=== PATIENT | female | born 1990 | race Caucasian/White ===

== ENCOUNTER 2016-09-09 17:30 | Outpatient (CLI) | payer MEDICAID, SELFPAY ==
[2016-09-09 18:14] LABS: Bacteria 0 SEEN /hpf (None Seen); Mucous, Urine 0 SEEN /hpf (<or=2+); Red Blood Cells-Urine 0 SEEN /hpf (0-5); White Blood Cells 0 SEEN /hpf (0-5)
[2016-09-09 18:21] VITALS: BMI 31.4
[2016-09-09 18:27] LABS: Color, Urine Yellow (Yellow); Glucose, Dipstick Normal (Normal); Ketone-Dipstick Negative (Negative); Leukocyte Esterase-Dipstick Negative /ul (Negative); Nitrite-Dipstick Negative (Negative); Occult Blood-Urine Negative /ul (Negative); Protein-Dipstick Negative (Negative); Specific Gravity, Urine 1.015 (1.002-1.030); Urine Bilirubin Dipstick Negative (Negative); Urine Clarity Sl. Cloudy (Clear); Urine Urobilinogen Normal (Normal)
[2016-09-09 18:36] LABS: Amorphous Sediment 2+ PHOS; Squamous Epithelial Cells - UA 0-5 SEEN /hpf (5-10)
[2016-09-09 18:41] LABS: Amphetamine Urine VISTA NEGATIVE (<1000 ng/mL); Barbiturate Urine VISTA NEGATIVE (< 200 ng/mL); Benzodiazepine Urine VISTA NEGATIVE (< 200 ng/mL); Cocaine Urine VISTA NEGATIVE (< 300 ng/mL); Ecstacy Urine VISTA NEGATIVE (< 500 ng/mL); Methadone Urine VISTA NEGATIVE (< 300 ng/mL); PCP Urine VISTA NEGATIVE (< 25 ng/mL); THC Urine VISTA POSITIVE (< 50 ng/mL); Vista UDS pH Range 6
[2016-09-09] MEDS: oxyCODONE 5 MG Tablet PO (20:14)
--- NOTE | 2016-09-09 22:41 | OB.TRI.NOTE ---
History of Present Illness - History of Present Illness Reason For Visit: R/O KIDNEY STONE Gestational age: 23 History of Present Illness: 26 YOF presents c/o 2 days of left flank pain. Has had for months, including before she was . Has h/o kidney stones in her kidneys. Patient states she has pain at urethra and suprapubic area. Drinking fluids. Passed small blood clot either vaginally or urethral area at home. No ctxs. Good FM. No fevers or chills. Was in ED yesterday and given IVF. Thinks she passed a small piece of a stone. Has a f/u appt w/ urology this week for this. - Medications Home Medications: Home Medications Medication Instructions Recorded HydrOXYzine DRAKE [Vistaril] 25 mg PO TID PRN PRN 08/17/16 Vits [Prenatabs FA] 1 tablet PO DAILY 08/17/16 Ondansetron [Zofran Odt] 4 mg PO Q8H PRN PRN 08/18/16 Oxycodone HCl/Acetaminophen 1 tablet PO Q8 PRN #7 tablet 09/09/16 [Percocet 5/325] - Allergies Allergies/Adverse Reactions: Allergies ketorolac tromethamine [From Toradol] Allergy (Verified 09/08/16 17:01) Hives latex Allergy (Verified 09/08/16 17:01) Rash Physical Exam General: Alert, Cooperative, No apparent distress Abdomen: Soft, Non-Distended, Tender - no rebound or guarding, - - tender more over symphysis than suprapubic area Extremities:: No edema Estimated gestational size: Appropriate for gestational size Presentation: Unable to assess Cervix Dilation (cm): 0 Station: -3 Effacement (%): 0 NST - FHR Rate Baby A Baseline: 140 bpm Variability:: Minimal, Moderate Accelerations:: 10 x 10 Decelerations:: None NST Reactive:: Appropriate for gestational age, Non-Reactive FHR Category:: Category I Uterine Activity:: quiet Impression/Plan 26 YOF high risk multigravida at 24 weeks w/ flank pain d/w her that this is ongoing since before . unlikely ongoing kidney stone passage. Straight cath UA neg today. She does not appear acutely ill and is not having waves of pain when we are speaking and when nursing is in w/ her. Will give limited pain medication until sees urology. If continues to return may need to do CT of pelvis/abd to see if any stones in her ureters or whether renal stones are stable. Will wait to see what urology has to say when she sees them on 09/12/16. F/u in office in 1-2 weeks or as needed no obstetrical issues Tox screen done, results noted
== END 2016-09-09 20:17 | disposition home or self-care (01) ==
PROVIDERS: Visit Provider Obstetrics & Gynecology
DX: O26.892 Other specified pregnancy related conditions, second trimester (principal); R10.9 Unspecified abdominal pain; Z3A.24 24 weeks gestation of pregnancy; Z87.442 Personal history of urinary calculi
CPT/HCPCS: 59025; 59050 ×2; 80307; 81001; 99218 ×2; G0378

== ENCOUNTER 2017-02-28 10:39 | Day surgery (SDC) | payer MEDICAID, SELFPAY ==
[2017-02-28] VITALS (7 sets, daily range): BP systolic 114–133; BP diastolic 66–82; PULSE 77–87; RESP 16–18; TEMP 36.8–37.1; O2SAT 98–100; BMI 26.2
[2017-02-28 11:09] LABS: Internal QC Validated? YES +Cl - CLEAR BKGD; Pregnancy, Urine Negative Negative
--- NOTE | 2017-02-28 11:10 | HP.PCM_ITS ---
History and Physical Date of Admission: 02/28/17 HPI 26 yo presents for sterilization Past Medical History: Reviewed history from 11/15/2016 and no changes required: Asthma Kidney Stones hepatitis C h/o heroin use genital herpes bipolar disorder Past Surgical History: Reviewed history from 10/08/2016 and no changes required: C Section x2 Ecotpic Appendectomy Laparoscopic ABD x3 Tonsillectomy Rice Teeth Family History Summary: Reviewed history and no changes required: 01/27/2017 Mother (biol.) - Has Family History of Ovarian Cancer - Entered On: 10/08/2016 Social History: Reviewed history from 10/08/2016 and no changes required: Smoking History: Patient currently smokes every day. Patient has been counseled to quit. Past History : 4 Term Births: 2 Living Children: 3 Para: 3 Prev : y Prev. attempt? none Ectopics: 1 # 1 Delivery date: 10/05/2008 Weeks Gestation: 40 labor: yes Delivery type: Hours of labor: 0 Anesthesia type: spinal Delivery location: [facility] Sex: Female weight: 5lb 15oz Name: Chelsea Comments: with grandmother # 2 Delivery date: 02/07/2016 Weeks Gestation: 38 labor: no Delivery type: Hours of labor: 0 Anesthesia type: spinal Delivery location: [facility] Sex: Male weight: 6lbs 4oz Name: Neal Comments: with patient # 3 Delivery date: 2016 Weeks Gestation: 39 Delivery type: Delivery location: [facility] Sex: Male Name: Candelario Linder Risk Factors: Smoked Tobacco Use: Current every day smoker Cigarettes: Yes -- 3/4 pack(s) per day,Smokeless Tobacco Use: Never Passive smoke exposure: no Drug use: no HIV high-risk behavior: no Caffeine use: 4+ drinks per day Alcohol use: no Exercise: no Seatbelt use: 50 % Sun Exposure: frequently Previous Tobacco Use: Signed On 12/27/2016 Smoked Tobacco Use: Current every day smoker Cigarettes: Yes -- 1/2 pack(s) per day,Smokeless Tobacco Use: Never Counseled to quit/cut down: yes Passive smoke exposure: no Drug use: no HIV high-risk behavior: no Caffeine use: 0 drinks per day Previous Alcohol Use: Signed On 12/27/2016 Alcohol use: no Exercise: no Seatbelt use: 100 % Sun Exposure: frequently Dietary Counseling: no PAP Smear History: Date of Last PAP Smear: 07/23/2014 Vital Signs: Patient Profile: 26 Years Old Female Height: 64 inches (162.56 cm) Weight: 146.8 pounds (66.59 kg) BMI: 25.20 O2 Sat: 100 % Temp: 98.3 degrees F (36.83 degrees C) tympanic Pulse rate: 103 / minute Resp: 16 per minute BP Sittin / 78 (right arm) Cuff size: regular Patient has a risk of falls? No Patient in pain? No Medications: Medications were reviewed with the patient during this visit. Allergies: Allergies were reviewed with the patient during this visit. Vitals Entered By: Cary Ruiz (January 25, 2017 2:57 PM) Review of Systems GI Complains of abdominal pain. Denies nausea/vomiting/indigestion, bloody stool, constipation and difficulty controlling bowel. Except as noted in the HPI, the review of systems is negative for General. General Medical Physical Exam: General Appearance: Well developed, well nourished, in no acute distress Head: Inspection: normocephalic without obvious abnormalities Eyes: External: conjunctiva and lids normal Cardio: RRR Pulmonary: normal inspiratory effort abdn: soft NTTP Ext no edema Impression & Recommendations: sterilization- plan laparoscopic bilateral salpingectomy
[2017-02-28 11:21] LABS: Amphetamine Urine VISTA POSITIVE (<1000 ng/mL); Barbiturate Urine VISTA NEGATIVE (< 200 ng/mL); Benzodiazepine Urine VISTA NEGATIVE (< 200 ng/mL); Cocaine Urine VISTA NEGATIVE (< 300 ng/mL); Ecstacy Urine VISTA POSITIVE (< 500 ng/mL); Methadone Urine VISTA NEGATIVE (< 300 ng/mL); PCP Urine VISTA NEGATIVE (< 25 ng/mL); THC Urine VISTA POSITIVE (< 50 ng/mL); Vista UDS pH Range 5
[2017-02-28 11:23] LABS: Hematocrit 35.7 % (37-47); Hemoglobin 11.3 g/dl (12.0-15.0); Mean Corp Hgb Conc 31.7 g/gl (32-36); Mean Corpuscular Hgb 29.9 pg (27.0-32.0); Mean Corpuscular Volume 94.4 fL (81-99); Platelet Count 367 K/mm3 (150-450); RBC Distribution Width CV 15.2 % (11.6-14.6); RBC Distribution Width SD 51.9 fl (35.1-43.9); Red Blood Count 3.78 M/mm3 (4.2-5.4); White Blood Count 6.4 K/mm3 (4.4-11.0)
[2017-02-28 11:24] LABS: Scan Indicated on CBC? Y/N NO
--- NOTE | 2017-02-28 11:55 | FALS_PTH ---
PATIENT: CAMILLA BORGES LOC: [facility] U#:[id number] AGE/SX: 26/F ROOM: RE02/28/[address]: Dr. Zeny Parada MD : 1990 BED: DIS: 02/28/2017 SPEC #: [id number] RECD: 02/28/17 14:22 STATUS: ROSE WARREN #: [id number] ARTHUR: 02/28/17 11:[address]: Zeny Parada DEPT: SURGICAL PATHOLOGY RECD BY: John Obrien ENTERED: 02/28/17 14:22 SP TYPE: FALL TUBES OTHR DR: No Primary Care Phys Tissues: Fallopian tube Procedures: Surgery Specimen Level II HEADER OPERATION: Laparoscopic salpingectomy PRE-OP DIAGNOSIS: Sterilization request TISSUE SUBMITTED: Left fallopian tube MICROSCOPIC DIAGNOSIS Left fallopian tube, segmental resection: Complete cross section of fallopian tube with no pathologic change. AM:sia 12/8/17 MICROSCOPIC DESCRIPTION Slides are reviewed. GROSS DESCRIPTION Received in fixative is one container labeled with the patient's name and designated fallopian tube. The specimen consists of a fallopian tube measuring 5 cm in length and 0.4 cm in average diameter. No mass lesions are identified and a normal fimbriated end is present Assistant Track Coach sections are submitted in one cassette. AM:sia 02/28/17 TC: 4 CPT:40783
[2017-02-28 12:06] LABS: Potassium 3.3 mmol/L (3.5-5.1)
[2017-02-28] MEDS: Bupivacaine Mpf 0.5% 30 ML VIAL (12:16)
--- NOTE | 2017-02-28 12:52 | PCM.OPRPT ---
Problem List (1) Encounter for sterilization Status: Acute Report of Operation Date of Procedure: 02/28/17 Pre-Operative Diagnosis: Sterilization Post-Operative Diagnosis: Same Surgery/Procedure Performed:: Laparoscopic salpingectomy Description of Surgical Findings:: Left fallopian tube and ovary present right fallopian tube and ovary absent vesicouterine adhesions noted Type of Anesthesia:: General Specimen's removed: Bilateral tubes Drains: None Estimated Blood Loss (mL): Minimal Description of Procedure: Patient was taken in the operating room and was placed under general anesthesia was prepped and draped in normal sterile fashion in the dorsal lithotomy position. Bladder was drained of clear urine and SCDs were on preoperatively. Uterus was sounded and a uterine manipulator was placed after dilating. Attention was then paid to the abdominal portion of the procedure and the umbilicus was elevated with towel clamps and injected with Marcaine and after a 5 mm incision was made and the Veress needle was entered into the abdomen confirmed to be intra-abdominal with a low opening pressure of less than 5 mmHg. Abdomen was insufflated with CO2 gas and a 5 mm optical trocar was placed under direct visualization. A left lower quadrant 5 mm port and a 5 mm port suprapubically replaced under direct visualization. Uterus was well visualized and the right fallopian tube and ovary were noted to be surgically absent and the left fallopian tube was identified and elevated and transecting across the mesosalpinx and the attachment to the uterine cornua the tube was removed without complication. Excellent hemostasis was noted. Fallopian tube was removed through the lower port sites without complication. Liver and upper abdomen were visualized notably within normal limits and no other gross abnormalities were seen in the abdomen. All instruments removed from the abdomen after gas was desufflated. Port sites were closed with 3-0 Monocryl Steri's and op sites were applied. All instruments removed from the vagina and patient was awoken and taken recovery in stable condition.
--- NOTE | 2017-02-28 12:55 | PCM.DC.TUB ---
Discharge Diet: No Restrictions - Increase fluid intake for the next 48 hours. Discharge Activity: Return to Normal Activity, May Drive - when you are no longer taking narcotic pain medications., May Shower, May Take a Tub Bath - in 7 days Additional Activity Instructions:: Ambulate often the next week after surgery. Nothing in the vagina for 5 days. Call your doctor if your incision/area has: Continuous Slow Oozing, Sudden Increased Bleeding, Increased Pain/ Swelling, Increased Redness, Foul Smelling Discharge Call your doctor if you observe: Fever of 101 or Higher Allergies/Adverse Reactions: Allergies ketorolac tromethamine [From Toradol] Allergy (Verified 01/14/17 18:21) Hives latex Allergy (Verified 01/14/17 18:21) Rash morphine [From Duramorph (PF)] Allergy (Verified 01/14/17 18:21) Hives Medications to take at Discharge Fluoxetine [Prozac] 40 mg PO DAILY #30 capsule 12/24/16 Lamotrigine [Lamictal] 100 mg PO DAILY #30 tablet 12/24/16 Ibuprofen [Motrin] 800 mg PO TID 01/14/17 Naproxen [Naprosyn] 500 mg PO BID PRN #20 tablet 01/14/17 Potassium Chloride [K-Dur] 20 meq PO BID #10 tablet 01/14/17 Fluoxetine [Prozac] 40 mg PO DAILY #60 cap 02/28/17 Lamotrigine [Lamictal] 100 mg PO BID #60 tab 02/28/17 Oxycodone HCl/Acetaminophen [Percocet 5-325] 1 - 2 tab PO Q4H PRN PRN #20 tab 02/28/17 Quetiapine Fumarate [Seroquel] 100 mg PO DAILY #30 tab 02/28/17 The following prescriptions were given: Oxycodone HCl/Acetaminophen [Percocet 5-325] 1 - 2 tab PO Q4H PRN PRN #20 tab PRN Reason: Pain Fluoxetine [Prozac] 40 mg PO DAILY #60 cap Quetiapine Fumarate [Seroquel] 100 mg PO DAILY #30 tab Lamotrigine [Lamictal] 100 mg PO BID #60 tab Primary Care Physician: Care Physician,No Primary [Primary Care Provider] - Please Follow Up With: Zeny Parada MD - [phone]
[2017-02-28] MEDS: HYDROcodone Bitartrate/Apap 5/325 Tablet PO (14:02)
== END 2017-02-28 14:30 | disposition home or self-care (01) ==
LOC: SDC 10:40 → AC 10:41
PROVIDERS: Anesthesiology; Visit Provider Obstetrics & Gynecology
PROC: (CPT 58661; principal; 2017-02-28 11:40)
DX: Z30.2 Encounter for sterilization (principal); F31.9 Bipolar disorder, unspecified; J45.909 Unspecified asthma, uncomplicated; Z80.41 Family history of malignant neoplasm of ovary; F17.200 Nicotine dependence, unspecified, uncomplicated; Z86.19 Personal history of other infectious and parasitic diseases
CPT/HCPCS: 58661; 36415; 80307; 81025; 84132; 85027; 86850; 86900; 88302; J7120; J2405

== ENCOUNTER 2017-06-25 19:42 | Emergency (ER) | payer MEDICAID, SELFPAY ==
[2017-06-25 19:42] VITALS: BP 125/70; PULSE 84; RESP 19; TEMP 36.7; O2SAT 99; BMI 25.1
--- NOTE | 2017-06-25 19:45 | ED.RN ---
PT ASKED WHAT DRS WERE WORKING BEFORE SHE DECIDED IF SHE WANTED TO BE CHECKED IN TO BE SEEN.
--- NOTE | 2017-06-25 19:51 | CT_ITS ---
STUDY: CT ABDOMEN AND PELVIS WITHOUT CONTRAST REASON FOR EXAM: Female, 27 years old. Left flank pain x1 week RADIATION DOSAGE (If Supplied By Facility): CTDIvol = ( 6.58 ) mGy, DLP = ( 323.66 ) mGycm TECHNIQUE: Transaxial images were obtained from the dome of the diaphragm to the symphysis pubis without oral contrast, and without intravenous contrast. Sagittal and coronal images were reconstructed. Individualized dose optimization techniques were used for this CT. COMPARISON: 04/10/2016 FINDINGS: The visualized lung bases are unremarkable. The visualized portions of the heart are within normal limits. Normal liver. Normal gallbladder and extrahepatic biliary system. Normal spleen. Normal pancreas. Normal bilateral adrenal glands. Punctate bilateral nonobstructive nephrolithiasis. Otherwise, normal kidneys. Normal visualized stomach. Normal small intestine. Prominent fecal retention throughout the colon with scattered diverticulosis. No evidence of diverticulitis. There are surgical clips in the region of the appendix consistent with a prior appendectomy. Normal abdominal aorta. Normal inferior vena cava. Normal retroperitoneum. Normal urinary bladder. Normal visualized uterus. Hypodense left ovarian cyst noted measuring 3.5 x 3.2 cm. Normal abdominal wall. Normal osseous structures. CT/Abdomen/Pelvis without Cont IMPRESSION: 1. Punctate nonobstructing nephrolithiasis 2. Prominent fecal retention in the colon. 3. Hypodense left ovarian cyst Electronically Signed: Elliot Minaya DO at 21:29 EDT Tel , Service support ,
--- NOTE | 2017-06-25 19:54 | ED.DCSUM_ITS ---
- ER Visit Summary Date of Service: 06/25/17 Chief Complaint: Left flank pain History of Present Illness: The patient is a 27 F presenting with left flank pain. Patient states that this started a week ago. This feels similar to her previous kidney stones. She states she has had dysuria and hematuria. She has had subjective fever at home. She denies possibility of . She states her urologist is at [facility]. She does not remember his name. Denies other complaints. Physical Examination: Vitals are stable. Patient is afebrile. Alert no acute distress. HEENT exam is unremarkable. Neck is supple. Lungs are clear and equal bilaterally. Heart is regular rate and rhythm. Abdomen is soft mild left lower quadrant tenderness with no guarding or rebound. Back left CVA tenderness Extremities are unremarkable. Skin is warm and dry. No focal neurologic deficit. Remainder of exam is unremarkable. Emergency Department Course and Treatment: Patient is given Dilaudid, Zofran. HCG negative. Urinalysis is contaminated with 10-25 epithelial cells, 0-[address] flank shows punctate nonobstructing nephrolithiasis, prominent fecal retention in the colon, hypodense left ovarian cyst. She is given mag citrate for home. She is advised to follow-up with Dr. Coates insulation worker interior surface for no doc. advised to return to ED for worsening complaints. Disposition: Discharge home Impression: Constipation, left ovarian cyst This note was generated with [employer] dictation software. It may contain incorrect words, spelling, and punctuation that were not noted in review of the chart prior to signing ED Disposition - Plan for ED Patient: Chief Complaint: Flank Pain Referrals: Care Physician,No Primary [Primary Care Provider] -
[2017-06-25] MEDS: Ondansetron 4 MG/2 ML Vial IV (20:25)
[2017-06-25] MEDS: HYDROmorphone 1 MG/ML Syringe 0.5 MG IV (20:25)
[2017-06-25 20:28] LABS: Pregnancy, Serum, hCG Quali. NEGATIVE Negative (0-9 Nonpreg)
[2017-06-25 20:54] LABS: Bacteria 0 SEEN /hpf (None Seen); Mucous, Urine 0 SEEN /hpf (<or=2+)
[2017-06-25 20:59] LABS: Color, Urine Yellow (Yellow); Glucose, Dipstick Normal (Normal); Ketone-Dipstick Negative (Negative); Leukocyte Esterase-Dipstick 100 /ul (Negative); Nitrite-Dipstick Negative (Negative); Occult Blood-Urine 10 /ul (Negative); Protein-Dipstick Negative (Negative); Specific Gravity, Urine 1.015 (1.002-1.030); Urine Bilirubin Dipstick Negative (Negative); Urine Clarity Sl. Cloudy (Clear); Urine Urobilinogen 4 mg/dl (Normal)
[2017-06-25 21:25] LABS: Calcium Oxalate Crystals Ur RARE /hpf (<or=2+); Red Blood Cells-Urine 0-5 SEEN /hpf (0-5); Squamous Epithelial Cells - UA 10-25 SEEN /hpf (5-10); White Blood Cells 0-5 SEEN /hpf (0-5)
--- NOTE | 2017-06-25 22:49 | ED.DEP ---
ED Disposition - Plan for ED Patient: Chief Complaint: Flank Pain Instructions: ED Constipation, ED Cyst Ovarian Prescriptions: Ondansetron [Zofran Odt] 4 mg PO Q8H PRN PRN #10 tablet PRN Reason: Nausea Referrals: Care Physician,No Primary [Primary Care Provider] - Monica Coates DO [STAFF PHYSICIAN] -
[2017-06-25 22:57] VITALS: PULSE 98; RESP 14; O2SAT 98
== END 2017-06-25 22:58 | disposition home or self-care (01) ==
PROVIDERS: Emergency Provider Emergency Medicine
DX: K59.00 Constipation, unspecified (principal); N83.202 Unspecified ovarian cyst, left side; N20.0 Calculus of kidney; Z87.442 Personal history of urinary calculi; Z72.0 Tobacco use
CPT/HCPCS: 74176; 81001; 84703; 96374; 96375; 99283; J7030; A4216; J2405

== ENCOUNTER 2017-06-28 02:22 | Emergency (ER) | payer MEDICAID, SELFPAY ==
[2017-06-28 02:23] VITALS: BP 123/61; PULSE 78; RESP 20; TEMP 36.5; O2SAT 99; BMI 25.1
[2017-06-28 02:53] LABS: Bacteria 0 SEEN /hpf (None Seen); Mucous, Urine 0 SEEN /hpf (<or=2+); Red Blood Cells-Urine 0 SEEN /hpf (0-5)
[2017-06-28 02:54] LABS: Color, Urine Yellow (Yellow); Glucose, Dipstick Normal (Normal); Ketone-Dipstick Negative (Negative); Leukocyte Esterase-Dipstick 100 /ul (Negative); Nitrite-Dipstick Negative (Negative); Occult Blood-Urine Negative /ul (Negative); Protein-Dipstick 15 mg/dl (Negative); Specific Gravity, Urine 1.015 (1.002-1.030); Urine Bilirubin Dipstick Negative (Negative); Urine Clarity Sl. Cloudy (Clear); Urine Urobilinogen Normal (Normal)
[2017-06-28 03:09] LABS: Squamous Epithelial Cells - UA 10-25 SEEN /hpf (5-10); White Blood Cells 0-5 SEEN /hpf (0-5)
[2017-06-28 03:09] LABS: Absolute Lymphocyte Count 2.73 X10^3/ul (0.83-4.51); Basophil# 0.06 X10^3/uL; Basophil% 0.9 % (0-1); Eosinophil# 0.27 X10^3/uL; Eosinophils% 4.2 % (0-5); Hematocrit 34.5 % (37-47); Hemoglobin 11.1 g/dl (12.0-15.0); Lymphocyte # 2.73 X10^3/ul (4.0); Lymphocyte % 42.5 % (19-41); Mean Corp Hgb Conc 32.2 g/gl (32-36); Mean Corpuscular Hgb 30.1 pg (27.0-32.0); Mean Corpuscular Volume 93.5 fL (81-99); Mean Platelet Vol. 9.9 fl (6.2-12.0); Monocyte# 0.36 X10^3/uL; Monocyte% 5.6 % (0-10); Neutrophil # 2.99 X10^3/uL (2.7-7.7); Neutrophil % 46.6 % (47-70); Platelet Count 302 K/mm3 (150-450); RBC Distribution Width CV 13.1 % (11.6-14.6); RBC Distribution Width SD 44.9 fl (35.1-43.9); Red Blood Count 3.69 M/mm3 (4.2-5.4); White Blood Count 6.4 K/mm3 (4.4-11.0)
[2017-06-28 03:11] LABS: POSITIVE COUNT NO; POSITIVE DIFFERENTIAL NO; POSITIVE MORPHOLOGY NO
[2017-06-28 03:26] LABS: Anion Gap 8 (5-15); BUN 11 mg/dL (7-18); BUN/Creat Ratio 21.4 RATIO (10-20); Calcium,Total 8.6 mg/dL (8.5-10.1); Chloride 105 mmol/L (98-107); Creatinine, Serum 0.51 mg/dL (0.55-1.02); EST Glomerular Filtration Rate 151 mL/min (>60); Est Glom Filt Rate - Afr Amer 183 mL/min (>60); Estimated Creatinine Clearance 135.85 ml/min; Glucose 87 mg/dL (74-106); Potassium 3.3 mmol/L (3.5-5.1); Sodium Level 139 mmol/L (136-145)
--- NOTE | 2017-06-28 04:06 | ED.RN ---
MD AWARE THAT THE PT DOES NOT HAVE AN IV AFTER MULTIPLE ATTEMPTS.STATED FINE LONG THE BLOOD IS OBTAINED.LABS OBTAINED.
[2017-06-28 04:46] LABS: Lactic Acid 1.8 mmol/L (0.4-2.0)
--- NOTE | 2017-06-28 04:58 | ED.VISSUMM ---
- ER Visit Summary Date of Service: 06/28/17 Chief Complaint: [Abdominal pain] History of Present Illness: The patient is a 27 F [presents the emergency department with abdominal pain for about a week. Patient described nausea and vomiting. She denies any diarrhea or blood in her stool. Patient denies black or tarry stool. Patient denies urinary symptoms. Patient was seen in the emergency department 2 days ago for the same complaint and had a CT scan of her abdomen and pelvis that showed a cyst measuring 3.5 x 3.2 cm on the left ovary. Patient states that ibuprofen and Tylenol at home not helping her pain. Patient has had history of salpingectomy as well as ?3 and laparoscopies. Patient has a history of endometriosis and ovarian cysts.] Physical Examination: [HEENT-PERRLA, EOMI. Cranial nerves II through XII grossly intact. TMs clear. Mucous membranes moist. No adenopathy. Cardiovascular-regular rate and rhythm without murmur or ectopy Lungs-clear to auscultation, chest wall stable without crepitus or subcu emphysema Abdomen-normoactive bowel sounds, soft. Patient has tenderness over left lower quadrant with some guarding. There is no rebound, rigidity, or perineal signs. Extremities-intact ?4, normal range of motion, normal pulses, atraumatic] Test Results: [CBC with differential is normal. Chemistries unremarkable. Urine was normal. Lactate was normal at 1.8. Emergency Department Course and Treatment: [Patient received morphine and Zofran IM. At this point I do not feel any further imaging is indicated. Case was discussed with Dr. Parada who will see patient in the office in 3 days. Patient has a history of heroin abuse however she states that she has been clean for over 2 years. I will write her for a short supply of [place] for pain until she can see Dr. Parada on Saturday.] I do not feel patient's exam is consistent with ovarian torsion therefore I do not feel emergent ultrasound is indicated. Treatment Plan: [[place] for pain and Zofran for nausea] Disposition: [Discharged to home in stable condition] Impression: [Abdominal pain Left ovarian cyst] This note was generated with [employer] dictation software. It may contain incorrect words, spelling, and punctuation that were not noted in review of the chart prior to signing ED Disposition - Plan for ED Patient: Chief Complaint: Abd Pain Referrals: Barron Schmitz DO [Primary Care Provider] -
--- NOTE | 2017-06-28 05:01 | ED.DCSUM_ITS ---
- ER Visit Summary Date of Service: 06/28/17 Chief Complaint: [Abdominal pain] History of Present Illness: The patient is a 27 F [presents the emergency department with abdominal pain for about a week. Patient described nausea and vomiting. She denies any diarrhea or blood in her stool. Patient denies black or tarry stool. Patient denies urinary symptoms. Patient was seen in the emergency department 2 days ago for the same complaint and had a CT scan of her abdomen and pelvis that showed a cyst measuring 3.5 x 3.2 cm on the left ovary. Patient states that ibuprofen and Tylenol at home not helping her pain. Patient has had history of salpingectomy as well as ?3 and laparoscopies. Patient has a history of endometriosis and ovarian cysts.] Physical Examination: [HEENT-PERRLA, EOMI. Cranial nerves II through XII grossly intact. TMs clear. Mucous membranes moist. No adenopathy. Cardiovascular-regular rate and rhythm without murmur or ectopy Lungs-clear to auscultation, chest wall stable without crepitus or subcu emphysema Abdomen-normoactive bowel sounds, soft. Patient has tenderness over left lower quadrant with some guarding. There is no rebound, rigidity, or perineal signs. Extremities-intact ?4, normal range of motion, normal pulses, atraumatic] Test Results: [CBC with differential is normal. Chemistries unremarkable. Urine was normal. Lactate was normal at 1.8. Emergency Department Course and Treatment: [Patient received morphine and Zofran IM. At this point I do not feel any further imaging is indicated. Case was discussed with Dr. Parada who will see patient in the office in 3 days. Patient has a history of heroin abuse however she states that she has been clean for over 2 years. I will write her for a short supply of [place] for pain until she can see Dr. Parada on Saturday.] I do not feel patient's exam is consistent with ovarian torsion therefore I do not feel emergent ultrasound is indicated. Treatment Plan: [[place] for pain and Zofran for nausea] Disposition: [Discharged to home in stable condition] Impression: [Abdominal pain Left ovarian cyst] This note was generated with [employer] dictation software. It may contain incorrect words, spelling, and punctuation that were not noted in review of the chart prior to signing ED Disposition - Plan for ED Patient: Chief Complaint: Abd Pain Referrals: Barron Schmitz DO [Primary Care Provider] -
--- NOTE | 2017-06-28 05:01 | ED.DEP ---
ED Disposition - Plan for ED Patient: Chief Complaint: Abd Pain Instructions: ED Cyst Ovarian Prescriptions: Hydrocodone Bitart/Apap 5-325 [[place] 5/325] 1 - 2 tab PO Q4H PRN PRN 3 Days #12 tab PRN Reason: Pain Ondansetron [Zofran Odt] 4 mg PO Q8H PRN PRN #10 tab PRN Reason: Nausea Referrals: Barron Schmitz DO [Primary Care Provider] - Zeny Parada MD [STAFF PHYSICIAN] - 07/01/17
[2017-06-28] MEDS: Ondansetron ODT 4 MG Tablet PO (05:13)
[2017-06-28] MEDS: HYDROcodone Bitartrate/Apap 5/325 Tablet PO (05:13)
[2017-06-28 05:14] VITALS: BP 97/50; PULSE 68; PULSE 69; RESP 16; O2SAT 97
== END 2017-06-28 05:17 | disposition home or self-care (01) ==
PROVIDERS: Emergency Provider Emergency Medicine; Family Provider Student in an Organized Health Care Education/Training Program; PCP Student in an Organized Health Care Education/Training Program
DX: R10.9 Unspecified abdominal pain (principal); N83.202 Unspecified ovarian cyst, left side; Z72.0 Tobacco use
CPT/HCPCS: 80048; 81001; 83605; 85025; 96361; 96374; 96375; 99282; J7030; A4216

== ENCOUNTER 2017-07-31 19:50 | Emergency (ER) | payer MEDICAID, SELFPAY ==
[2017-07-31 19:53] VITALS: BP 114/63; PULSE 89; RESP 16; TEMP 37.2; O2SAT 99; BMI 24.0
[2017-07-31 21:18] LABS: Mucous, Urine 0 SEEN /hpf (<or=2+); Red Blood Cells-Urine 0 SEEN /hpf (0-5)
[2017-07-31] MEDS: Ondansetron 4 MG/2 ML Vial IV (21:19)
[2017-07-31] MEDS: 0.9% Normal Saline 1,000 ML 250 ML IV (21:19)
[2017-07-31] MEDS: Ibuprofen 600 MG Tablet PO (21:19)
[2017-07-31 21:20] LABS: Absolute Lymphocyte Count 1.78 X10^3/ul (0.83-4.51); Absolute Neutrophil Count 3.2 X10^3/uL (2.0-7.7); Basophil# 0.08 X10^3/uL; Basophil% 1.4 % (0-1); Eosinophils% 3.6 % (0-5); Hematocrit 36.2 % (37-47); Hemoglobin 11.5 g/dl (12.0-15.0); Lymphocyte # 1.78 X10^3/ul (4.0); Lymphocyte % 32.1 % (19-41); Mean Corp Hgb Conc 31.8 g/gl (32-36); Mean Corpuscular Hgb 29.8 pg (27.0-32.0); Mean Corpuscular Volume 93.8 fL (81-99); Mean Platelet Vol. 10.1 fl (6.2-12.0); Monocyte# 0.32 X10^3/uL; Monocyte% 5.8 % (0-10); Neutrophil # 3.16 X10^3/uL (2.7-7.7); Neutrophil % 57.1 % (47-70); Platelet Count 329 K/mm3 (150-450); RBC Distribution Width CV 13.5 % (11.6-14.6); Red Blood Count 3.86 M/mm3 (4.2-5.4); White Blood Count 5.5 K/mm3 (4.4-11.0)
[2017-07-31] MEDS: HYDROmorphone 0.5 MG/0.5 ML SYRINGE IV (21:20)
[2017-07-31 21:21] LABS: POSITIVE COUNT NO; POSITIVE DIFFERENTIAL NO; POSITIVE MORPHOLOGY NO
[2017-07-31 21:22] LABS: Color, Urine Yellow (Yellow); Glucose, Dipstick Normal (Normal); Ketone-Dipstick Negative (Negative); Leukocyte Esterase-Dipstick 25 /ul (Negative); Nitrite-Dipstick Positive (Negative); Occult Blood-Urine Negative /ul (Negative); Protein-Dipstick Negative (Negative); Urine Bilirubin Dipstick Negative (Negative); Urine Clarity Sl. Cloudy (Clear); Urine Urobilinogen Normal (Normal)
[2017-07-31 21:35] LABS: Squamous Epithelial Cells - UA 0-5 SEEN /hpf (5-10); White Blood Cells 10-25 SEEN /hpf (0-5)
[2017-07-31 21:36] LABS: Bacteria RARE /hpf (None Seen)
--- NOTE | 2017-07-31 22:12 | ED.RN ---
PATIENT GOT IN AN ARGUMENT WITH BOYFRIEND AND HER BOYFRIEND LEFT. SHE WAS UNABLE TO GET A HOLD OF HIM AND SHE DOES NOT WANT HIM AROUND HER CHILDREN. SHE IS REQUESTING TO LEAVE AMA. AMA PAPER SIGNED AND A COPY GIVEN TO THE PATIENT. DR. BAHENA MADE AWARE.
--- NOTE | 2017-07-31 22:14 | ED.VISSUMM ---
- ER Visit Summary Date of Service: 07/31/17 Chief Complaint: Right flank pain and urinary frequency History of Present Illness: The patient is a 27 F with a 2-3 day history of right flank pain. She states her urine is mildly dark. She has been going more frequently. She does report having vomiting and chills. She states her temperature was 101 today. She did take Tylenol approximately 4 hours prior to arrival. Patient is a history of hepatitis C, kidney stones, back pain, anxiety, depression. She has had her fallopian tubes removed. Allergy list is reviewed and does include Toradol and morphine. Physical Examination: Vital signs are unremarkable. Patient sitting upright in bed. She is intermittently tearful. Heart is regular rate and rhythm. Lung sounds are clear. Abdomen is soft and nontender. Active bowel sounds are noted. Back examination reveals mild right CVA tenderness. Test Results: CBC was normal white count. Hemoglobin is 11.5. Urinalysis returns positive for nitrites with 10-25 white blood cells. Emergency Department Course and Treatment: BMP was ordered but sample was hemolyzed. She had been given 0.5 mg of Dilaudid, ibuprofen, and Zofran. I did review her CT scan from June 25 of this year. At that time she had punctate bilateral renal stones. I was advised by nursing staff that the patient needed to leave the emergency room and take care of her children. I did stop and speak with her briefly and advised her that I felt her urine was likely infected. Because she is having flank pain should be treated with a 10 day course of antibiotics. Her prescription for antibiotics were sent to [facility]. She initially told me that she would wait for her first dose here, but nursing staff states she left the emergency room shortly after I spoke with her. Treatment Plan: [] Disposition: Discharge Impression: Pyelonephritis This note was generated with [employer] dictation software. It may contain incorrect words, spelling, and punctuation that were not noted in review of the chart prior to signing ED Disposition - Plan for ED Patient: Disposition: Home or Assisted Living Chief Complaint: Flank Pain Instructions: ED Kidney Infec Female Prescriptions: Smz/Tmp Ds [Bactrim Ds] 1 tab PO BID #20 tab Referrals: Barron Schmitz DO [Primary Care Provider] - 1 Week
--- NOTE | 2017-07-31 22:17 | DCINST.ED_ITS ---
ED Disposition - Plan for ED Patient: Disposition: Home or Assisted Living Chief Complaint: Flank Pain Instructions: ED Kidney Infec Female Prescriptions: Smz/Tmp Ds [Bactrim Ds] 1 tab PO BID #20 tab Referrals: Barron Schmitz DO [Primary Care Provider] - 1 Week
== END 2017-07-31 22:31 | disposition home or self-care (01) ==
PROVIDERS: Emergency Provider Emergency Medicine; Family Provider Student in an Organized Health Care Education/Training Program; PCP Student in an Organized Health Care Education/Training Program
DX: N12 Tubulo-interstitial nephritis, not specified as acute or chronic (principal); Z86.19 Personal history of other infectious and parasitic diseases; Z87.442 Personal history of urinary calculi; Z72.0 Tobacco use; F32.9 Major depressive disorder, single episode, unspecified; F41.9 Anxiety disorder, unspecified
CPT/HCPCS: 81001; 85025; 96361; 96374; 96375; 99285; J7030; A4216; J2405

== ENCOUNTER 2017-08-11 18:50 | Emergency (ER) | payer MEDICAID, SELFPAY ==
[2017-08-11 18:51] VITALS: BP 102/61; PULSE 97; RESP 24; TEMP 39.3; O2SAT 100; BMI 23.8
--- NOTE | 2017-08-11 19:21 | CT_ITS ---
STUDY: CT ABDOMEN AND PELVIS WITHOUT CONTRAST REASON FOR EXAM: Female, 27 years old. Right flank pain. RADIATION DOSAGE (If Supplied By Facility): CTDIvol = ( 8.06 ) mGy, DLP = ( 401.58 ) mGycm TECHNIQUE: Transaxial images were obtained from the dome of the diaphragm to the symphysis pubis without oral contrast, and without intravenous contrast. Sagittal and coronal images were reconstructed. Individualized dose optimization techniques were used for this CT. COMPARISON: Prior abdomen and pelvic CT exam of June 25, 2017 FINDINGS: The visualized lung bases are unremarkable. The visualized portions of the heart are within normal limits. Normal liver. Normal gallbladder and extrahepatic biliary system. Normal spleen. Normal pancreas. 1 mm and 3 mm nonobstructing stones in the midpole of the right kidney without hydronephrosis or ureteral stones. Multiple 1 to 2 mm nonobstructing stones in the mid and lower pole of the left kidney without hydronephrosis or ureteral stones. Normal adrenal glands bilaterally. Normal visualized stomach. Normal small intestine. Stool filled colon. There are surgical clips in the region of the appendix consistent with a prior appendectomy. Minimal calcified plaque of the aorta. Normal inferior vena cava. Normal retroperitoneum. Nondistended urinary bladder. Negative for pelvic mass or free fluid of the pelvis. Normal abdominal wall. Normal osseous structures. CT/Abdomen/Pelvis without Cont IMPRESSION: Normal size of the right kidney with 1 and 3 mm nonobstructing stones in the mid pole without hydronephrosis or ureteral stones. Normal size of the left kidney with 1 to 2 mm nonobstructing stones of the mid and lower pole without hydronephrosis or ureteral stones. Unremarkable nondistended urinary bladder. Stool-filled colon. Electronically Signed: Janet Banerjee MD at 20:33 EDT , Service support ,
[2017-08-11] MEDS: 0.9% Normal Saline 1,000 ML 1000 ML IV (19:34)
[2017-08-11] MEDS: Ibuprofen 600 MG Tablet PO (19:34)
[2017-08-11] MEDS: HYDROmorphone 1 MG/ML Syringe IV (19:34)
[2017-08-11] MEDS: Ondansetron 4 MG/2 ML Vial IV (19:35)
[2017-08-11 19:36] LABS: Absolute Lymphocyte Count 1.33 X10^3/ul (0.83-4.51); Absolute Neutrophil Count 7.7 X10^3/uL (2.0-7.7); Basophil# 0.03 X10^3/uL; Basophil% 0.3 % (0-1); Eosinophil# 0.05 X10^3/uL; Eosinophils% 0.5 % (0-5); Hematocrit 36.7 % (37-47); Hemoglobin 11.7 g/dl (12.0-15.0); Lymphocyte # 1.33 X10^3/ul (4.0); Lymphocyte % 13.8 % (19-41); Mean Corp Hgb Conc 31.9 g/gl (32-36); Mean Corpuscular Hgb 29.7 pg (27.0-32.0); Mean Corpuscular Volume 93.1 fL (81-99); Mean Platelet Vol. 10.2 fl (6.2-12.0); Monocyte# 0.51 X10^3/uL; Monocyte% 5.3 % (0-10); Neutrophil # 7.72 X10^3/uL (2.7-7.7); Neutrophil % 79.9 % (47-70); Platelet Count 230 K/mm3 (150-450); RBC Distribution Width CV 13.6 % (11.6-14.6); RBC Distribution Width SD 46.7 fl (35.1-43.9); Red Blood Count 3.94 M/mm3 (4.2-5.4); White Blood Count 9.7 K/mm3 (4.4-11.0)
[2017-08-11 19:37] LABS: POSITIVE COUNT NO; POSITIVE DIFFERENTIAL NO; POSITIVE MORPHOLOGY NO
[2017-08-11 19:45] LABS: Mucous, Urine 0 SEEN /hpf (<or=2+)
[2017-08-11 19:48] LABS: Color, Urine Yellow (Yellow); Glucose, Dipstick Normal (Normal); Ketone-Dipstick 15 mg/dl (Negative); Leukocyte Esterase-Dipstick 500 /ul (Negative); Nitrite-Dipstick Negative (Negative); Occult Blood-Urine 250 /ul (Negative); Protein-Dipstick 30 mg/dl (Negative); Urine Clarity Cloudy (Clear); Urine Urobilinogen 4 mg/dl (Normal)
[2017-08-11 19:51] LABS: Urine Bilirubin Dipstick 1 mg/dL (Negative)
[2017-08-11 19:52] LABS: ALB/GLOB Ratio 0.8 RATIO (0.9-2.4); AST(SGOT) 21 U/L (15-37); Alanine Aminotransfer ALT/SGPT 35 U/L (13-56); Albumin, Serum 3.9 g/dL (3.2-5.0); Alkaline Phosphatase 90 U/L (45-117); Anion Gap 8 (5-15); BUN 9 mg/dL (7-18); BUN/Creat Ratio 12.9 RATIO (10-20); Calcium,Total 9.4 mg/dL (8.5-10.1); Chloride 103 mmol/L (98-107); EST Glomerular Filtration Rate 106 mL/min (>60); Est Glom Filt Rate - Afr Amer 128 mL/min (>60); Estimated Creatinine Clearance 103.32 ml/min; Globulin 4.7 g/dL (2.2-4.2); Glucose 90 mg/dL (74-106); Potassium 3.2 mmol/L (3.5-5.1); Protein, Total 8.6 g/dL (6.4-8.2); Sodium Level 135 mmol/L (136-145)
[2017-08-11 20:00] LABS: Bacteria 3+ /hpf (None Seen); White Blood Cells 10-25 SEEN /hpf (0-5)
[2017-08-11 20:03] LABS: Squamous Epithelial Cells - UA 10-25 SEEN /hpf (5-10)
[2017-08-11 20:04] LABS: Red Blood Cells-Urine 50-100 SEEN /hpf (0-5)
--- NOTE | 2017-08-11 20:43 | ED.VISSUMM ---
- ER Visit Summary Date of Service: 08/11/17 Chief Complaint: [Fever] History of Present Illness: The patient is a 27 F [presents the emergency department with fever that started yesterday. Patient complains of pain in her back mostly on the right. Patient complains of nausea. Patient denies any vomiting. Patient denies diarrhea. She denies recent illness otherwise. Patient has history of frequent urinary tract infections and kidney stones.] Physical Examination: [HEENT-PERRLA, EOMI. Cranial nerves II through XII grossly intact. TMs clear. Mucous membranes moist. No adenopathy. Cardiovascular-regular rate and rhythm without murmur or ectopy Lungs-clear to auscultation, chest wall stable without crepitus or subcu emphysema Abdomen-normoactive bowel sounds, soft. Patient has diffuse tenderness palpation over the lower abdomen with guarding. There is no rebound, rigidity, or perineal signs. Patient does have CVA tenderness on the right. Extremities-intact ?4, normal range of motion, normal pulses, atraumatic] Test Results: [CBC with differential obtained showed a white count of 9.7, hemoglobin 11.7, hematocrit 37, platelet 230. Chemistries unremarkable other than slightly depressed potassium at 3.2. Urinalysis showed 500 leukocyte esterase negative for nitrites 10-25 WBCs 50-100 RBCs 1025 epis and +3 bacteria. Urine culture was sent.] CT flank showed small stones in both kidneys but no ureteral stones. Emergency Department Course and Treatment: [Patient was started on Rocephin. Patient was given Dilaudid and Zofran for pain initially.] Treatment Plan: [Patient will be started on Bactrim as well as Pyridium given a few [place] for severe pain.] Disposition: [Discharged to home in stable condition]. Patient advised to return if worsening pain, vomiting, or condition should worsen in any way. Impression: [Urinary tract infection] This note was generated with [employer] dictation software. It may contain incorrect words, spelling, and punctuation that were not noted in review of the chart prior to signing ED Disposition - Plan for ED Patient: Chief Complaint: Fever Referrals: Barron Schmitz DO [Primary Care Provider] -
--- NOTE | 2017-08-11 20:46 | ED.DCSUM_ITS ---
- ER Visit Summary Date of Service: 08/11/17 Chief Complaint: [Fever] History of Present Illness: The patient is a 27 F [presents the emergency department with fever that started yesterday. Patient complains of pain in her back mostly on the right. Patient complains of nausea. Patient denies any vomiting. Patient denies diarrhea. She denies recent illness otherwise. Patient has history of frequent urinary tract infections and kidney stones.] Physical Examination: [HEENT-PERRLA, EOMI. Cranial nerves II through XII grossly intact. TMs clear. Mucous membranes moist. No adenopathy. Cardiovascular-regular rate and rhythm without murmur or ectopy Lungs-clear to auscultation, chest wall stable without crepitus or subcu emphysema Abdomen-normoactive bowel sounds, soft. Patient has diffuse tenderness palpation over the lower abdomen with guarding. There is no rebound, rigidity, or perineal signs. Patient does have CVA tenderness on the right. Extremities-intact ?4, normal range of motion, normal pulses, atraumatic] Test Results: [CBC with differential obtained showed a white count of 9.7, hemoglobin 11.7, hematocrit 37, platelet 230. Chemistries unremarkable other than slightly depressed potassium at 3.2. Urinalysis showed 500 leukocyte esterase negative for nitrites 10-25 WBCs 50-100 RBCs 1025 epis and +3 bacteria. Urine culture was sent.] CT flank showed small stones in both kidneys but no ureteral stones. Emergency Department Course and Treatment: [Patient was started on Rocephin. Patient was given Dilaudid and Zofran for pain initially.] Treatment Plan: [Patient will be started on Bactrim as well as Pyridium given a few [place] for severe pain.] Disposition: [Discharged to home in stable condition]. Patient advised to return if worsening pain, vomiting, or condition should worsen in any way. Impression: [Urinary tract infection] This note was generated with [employer] dictation software. It may contain incorrect words, spelling, and punctuation that were not noted in review of the chart prior to signing ED Disposition - Plan for ED Patient: Chief Complaint: Fever Referrals: Barron Schmitz DO [Primary Care Provider] -
--- NOTE | 2017-08-11 20:46 | ED.DEP ---
ED Disposition - Plan for ED Patient: Chief Complaint: Fever Instructions: ED Kidney Infec Female Prescriptions: Hydrocodone Bitart/Apap 5-325 [[place] 5MG-325MG] 1 tab PO Q6H PRN PRN 3 Days #10 tab PRN Reason: Pain Smz/Tmp Ds [Bactrim Ds] 1 tab PO BID #10 tab Phenazopyridine HCl [Pyridium] 200 mg PO TID #10 tab Referrals: Barron Schmitz DO [Primary Care Provider] - 3-5 Days
[2017-08-11 21:02] VITALS: BP 103/57; PULSE 82; RESP 16; O2SAT 99
[2017-08-11] MEDS: Ceftriaxone 1 GM/50 ML BAG IV (21:09)
[2017-08-11] MEDS: HYDROcodone Bitartrate/Apap 5/325 Tablet PO (21:43)
[2017-08-11 21:44] VITALS: BP 103/57; PULSE 91; RESP 16; TEMP 37.8; O2SAT 100
== END 2017-08-11 21:46 | disposition home or self-care (01) ==
LOC: ED 19:35
PROVIDERS: Emergency Provider Emergency Medicine; Family Provider Student in an Organized Health Care Education/Training Program; PCP Student in an Organized Health Care Education/Training Program
DX: N39.0 Urinary tract infection, site not specified (principal); Z87.440 Personal history of urinary (tract) infections; Z87.442 Personal history of urinary calculi; Z72.0 Tobacco use
CPT/HCPCS: 74176; 80053; 81001; 85025; 87086; 87088; 99285; J7030; A4216; J2405

== ENCOUNTER 2017-08-25 13:54 | Emergency (ER) | payer MEDICAID, SELFPAY ==
[2017-08-25 13:55] VITALS: BP 109/52; PULSE 99; RESP 18; TEMP 38.2; O2SAT 99; BMI 24.4
[2017-08-25] MEDS: Ondansetron 4 MG/2 ML Vial IV (14:45)
[2017-08-25] MEDS: 0.9% Normal Saline 1,000 ML 1000 ML IV (14:45)
[2017-08-25 14:50] LABS: Absolute Lymphocyte Count 1.17 X10^3/ul (0.83-4.51); Absolute Neutrophil Count 8.5 X10^3/uL (2.0-7.7); Basophil# 0.02 X10^3/uL; Basophil% 0.2 % (0-1); Eosinophil# 0.09 X10^3/uL; Eosinophils% 0.9 % (0-5); Hematocrit 30.9 % (37-47); Hemoglobin 9.9 g/dl (12.0-15.0); Lymphocyte # 1.17 X10^3/ul (4.0); Lymphocyte % 11.1 % (19-41); Mean Corpuscular Hgb 29.4 pg (27.0-32.0); Mean Corpuscular Volume 91.7 fL (81-99); Mean Platelet Vol. 10.3 fl (6.2-12.0); Monocyte# 0.77 X10^3/uL; Monocyte% 7.3 % (0-10); Neutrophil # 8.45 X10^3/uL (2.7-7.7); Neutrophil % 80.4 % (47-70); Platelet Count 243 K/mm3 (150-450); RBC Distribution Width SD 47.1 fl (35.1-43.9); Red Blood Count 3.37 M/mm3 (4.2-5.4); White Blood Count 10.5 K/mm3 (4.4-11.0)
[2017-08-25 14:52] LABS: POSITIVE COUNT NO; POSITIVE DIFFERENTIAL NO; POSITIVE MORPHOLOGY NO
[2017-08-25 14:58] LABS: Mucous, Urine 0 SEEN /hpf (<or=2+); Red Blood Cells-Urine 0 SEEN /hpf (0-5)
[2017-08-25 15:01] LABS: Anion Gap 7 (5-15); BUN 10 mg/dL (7-18); BUN/Creat Ratio 17.2 RATIO (10-20); Calcium,Total 8.4 mg/dL (8.5-10.1); Chloride 106 mmol/L (98-107); Creatinine, Serum 0.58 mg/dL (0.55-1.02); EST Glomerular Filtration Rate 131 mL/min (>60); Est Glom Filt Rate - Afr Amer 158 mL/min (>60); Estimated Creatinine Clearance 119.46 ml/min; Glucose 86 mg/dL (74-106); Potassium 2.9 mmol/L (3.5-5.1); Sodium Level 138 mmol/L (136-145)
[2017-08-25 15:04] LABS: Pregnancy, Serum, hCG Quali. NEGATIVE Negative (0-9 Nonpreg)
[2017-08-25 15:06] LABS: Color, Urine Yellow (Yellow); Glucose, Dipstick Normal (Normal); Ketone-Dipstick Negative (Negative); Leukocyte Esterase-Dipstick 500 /ul (Negative); Nitrite-Dipstick Positive (Negative); Occult Blood-Urine 25 /ul (Negative); Protein-Dipstick 30 mg/dl (Negative); Specific Gravity, Urine 1.015 (1.002-1.030); Urine Bilirubin Dipstick Negative (Negative); Urine Clarity Sl. Cloudy (Clear); Urine Urobilinogen 1 mg/dl (Normal)
[2017-08-25 15:11] LABS: Lactic Acid 1.6 mmol/L (0.4-2.0)
[2017-08-25 15:17] LABS: Bacteria 1+ /hpf (None Seen); Squamous Epithelial Cells - UA 10-25 SEEN /hpf (5-10); White Blood Cells 50-100 SEEN /hpf (0-5)
--- NOTE | 2017-08-25 15:24 | NURSING ---
PT WANTS TO WAIT UNTIL SHE IS DCD TO TAKE THE POTASSIUM PILLS. STATES SHE IS IM TOO M,UCH PAIN TO KEEP MOVING. THIS RN INFORMED PT OF THE IMPORTANCE OF TAKING THEM. SHE WISHES TO WAIT
--- NOTE | 2017-08-25 15:33 | ED.VISSUMM ---
- ER Visit Summary Date of Service: 08/25/17 Chief Complaint: Fever History of Present Illness: The patient is a [address] Schmitz. She reports that she has a fever that began 2 days ago. States that it has been 104?. She denies any sore throat or cough. No abdominal pain, nausea, vomiting, or diarrhea. No dysuria or frequency. No headache, numbness, or weakness. Physical Examination: Vitals: 100.7, 109/52, 99, 18, 99% on room air which is not hypoxic. General: Well-nourished and well-developed. Head: Normocephalic atraumatic. Neck: Supple, no lymphadenopathy. No JVD. Nontender. Cardiovascular: Regular rate and rhythm. No murmurs. Respiratory: No respiratory distress. Clear to auscultation bilaterally. Abdominal: Soft, nontender, nondistended, normal bowel sounds. No guarding, rebound, or peritoneal signs. Back: Moderate right CVA tenderness. Extremities: Nontender, no edema. Skin: Normal color, no rash. Neurologic: Alert and oriented ?3. Cranial nerves II through XII are intact. Normal strength and sensation. Psych: Normal affect. Test Results: CBC is remarkable for an H&H of 9.9 and 30.9, segmented neutrophils of 80, lymphocytes of 11. Chem-7 is more for potassium at 2.9 and calcium of 8.4. Lactic acid is 1.6. UA has 5200 white blood cells, but 10-25 epithelial cells. There is 1+ bacteria. It is nitrite positive. test was negative. August 11 the patient had a urine culture which showed mixed gram-positive and gram-negative organisms. She was placed on Bactrim for 5 days. At that time she also had a CT of the flank that showed a 1 and 3 mm nonobstructing stone on the right as well as 1-2 mm nonobstructing stone on the left. This was not repeated. Emergency Department Course and Treatment: Patient refused Tylenol and ibuprofen. She was given K-Dur p.o. An OARRS report was unable to be obtained. Treatment Plan: I do not think that exposing the patient to a repeat CT is in her best interest. There is no blood in her urine to suggest a kidney stone. The stones that were there less than 2 weeks ago were small enough that she would pass them on her own. Her urine was sent for culture again. She was treated with Macrobid p.o. She will be discharged Macrobid and K-Dur. Instructed to follow-up with her primary care physician in 3-5 days if not improving. Disposition: To home in improved and stable condition. Impression: 1. UTI. 2. Hypokalemia. This note was generated with [employer] dictation software. It may contain incorrect words, spelling, and punctuation that were not noted in review of the chart prior to signing ED Disposition - Plan for ED Patient: Chief Complaint: Flank Pain Instructions: ED UTI Cystitis Female Prescriptions: Nitrofurantoin Macrocrystals [Macrobid] 100 mg PO Q12 #14 capsule Potassium Chloride [K-Dur] 40 meq PO DAILY #14 tablet Referrals: Barron Schmitz DO [Primary Care Provider] - 3-5 Days if not improving
--- NOTE | 2017-08-25 15:40 | ED.DCSUM_ITS ---
- ER Visit Summary Date of Service: 08/25/17 Chief Complaint: Fever History of Present Illness: The patient is a [address] Schmitz. She reports that she has a fever that began 2 days ago. States that it has been 104 ?. She denies any sore throat or cough. No abdominal pain, nausea, vomiting, or diarrhea. No dysuria or frequency. No headache, numbness, or weakness. Physical Examination: Vitals: 100.7, 109/52, 99, 18, 99% on room air which is not hypoxic. General: Well-nourished and well-developed. Head: Normocephalic atraumatic. Neck: Supple, no lymphadenopathy. No JVD. Nontender. Cardiovascular: Regular rate and rhythm. No murmurs. Respiratory: No respiratory distress. Clear to auscultation bilaterally. Abdominal: Soft, nontender, nondistended, normal bowel sounds. No guarding, rebound, or peritoneal signs. Back: Moderate right CVA tenderness. Extremities: Nontender, no edema. Skin: Normal color, no rash. Neurologic: Alert and oriented ?3. Cranial nerves II through XII are intact. Normal strength and sensation. Psych: Normal affect. Test Results: CBC is remarkable for an H&H of 9.9 and 30.9, segmented neutrophils of 80, lymphocytes of 11. Chem-7 is more for potassium at 2.9 and calcium of 8.4. Lactic acid is 1.6. UA has 5200 white blood cells, but 10-25 epithelial cells. There is 1+ bacteria. It is nitrite positive. test was negative. August 11 the patient had a urine culture which showed mixed gram-positive and gram -negative organisms. She was placed on Bactrim for 5 days. At that time she also had a CT of the flank that showed a 1 and 3 mm nonobstructing stone on the right as well as 1-2 mm nonobstructing stone on the left. This was not repeated. Emergency Department Course and Treatment: Patient refused Tylenol and ibuprofen. She was given K-Dur p.o. An OARRS report was unable to be obtained. Treatment Plan: I do not think that exposing the patient to a repeat CT is in her best interest. There is no blood in her urine to suggest a kidney stone. The stones that were there less than 2 weeks ago were small enough that she would pass them on her own. Her urine was sent for culture again. She was treated with Macrobid p.o. She will be discharged Macrobid and K-Dur. Instructed to follow-up with her primary care physician in 3-5 days if not improving. Disposition: To home in improved and stable condition. Impression: 1. UTI. 2. Hypokalemia. This note was generated with [employer] dictation software. It may contain incorrect words, spelling, and punctuation that were not noted in review of the chart prior to signing ED Disposition - Plan for ED Patient: Chief Complaint: Flank Pain Instructions: ED UTI Cystitis Female Prescriptions: Nitrofurantoin Macrocrystals [Macrobid] 100 mg PO Q12 #14 capsule Potassium Chloride [K-Dur] 40 meq PO DAILY #14 tablet Referrals: Barron Schmitz DO [Primary Care Provider] - 3-5 Days if not improving
[2017-08-25 15:46] VITALS: BP 96/43; PULSE 84; RESP 18
--- NOTE | 2017-08-25 15:50 | NURSING ---
Addendum entered by Lucille Lopez 08/25/17 15:53: PT STATES WE'LL SEE IF MY PAST IS HERE TO HAUNT ME OR THE DOCTOR. Original Note: PT REFUSED KDUR AND MACROBID. STATES SHE DONT WANT NOTHIN FROM THIS [facility]. I'LL TAKE THE PRESCRIPTIONS TO SHOW THE NEXT HOSPITAL. MY DAD HAS ALREADY CONTACTED A MEDICAL [employer].
== END 2017-08-25 15:53 | disposition home or self-care (01) ==
PROVIDERS: Emergency Provider Emergency Medicine; Family Provider Student in an Organized Health Care Education/Training Program; PCP Student in an Organized Health Care Education/Training Program
DX: N39.0 Urinary tract infection, site not specified (principal); E87.6 Hypokalemia; N80.9 Endometriosis, unspecified; Z87.442 Personal history of urinary calculi; Z90.89 Acquired absence of other organs; Z79.899 Other long term (current) drug therapy; F17.200 Nicotine dependence, unspecified, uncomplicated
CPT/HCPCS: 80048; 81001; 83605; 84703; 85025; 87086; 87088; 87186; 96361; 96374; 99285; J7030; A4216; J2405

== ENCOUNTER 2017-10-04 17:45 | Emergency (ER) | payer MEDICAID, SELFPAY ==
[2017-10-04 17:46] VITALS: BP 135/65; PULSE 117; RESP 18; TEMP 37.9; O2SAT 100; BMI 20.5
[2017-10-04] MEDS: Acetaminophen 500 MG Tablet 1000 MG PO (18:34)
[2017-10-04] MEDS: Morphine 4 MG/ML Syringe IV (18:34)
[2017-10-04] MEDS: Ondansetron 4 MG/2 ML Vial IV (18:34)
[2017-10-04] MEDS: 0.9% Normal Saline 1,000 ML 1000 ML IV ×2 (18:35→20:23)
[2017-10-04 18:37] LABS: Absolute Lymphocyte Count 1.25 X10^3/ul (0.83-4.51); Absolute Neutrophil Count 10.2 X10^3/uL (2.0-7.7); Basophil# 0.03 X10^3/uL; Basophil% 0.2 % (0-1); Hematocrit 33.8 % (37-47); Hemoglobin 10.8 g/dl (12.0-15.0); Lymphocyte # 1.25 X10^3/ul (4.0); Lymphocyte % 10.1 % (19-41); Mean Corpuscular Hgb 29.3 pg (27.0-32.0); Mean Corpuscular Volume 91.8 fL (81-99); Mean Platelet Vol. 10.2 fl (6.2-12.0); Monocyte# 0.91 X10^3/uL; Monocyte% 7.3 % (0-10); Neutrophil # 10.19 X10^3/uL (2.7-7.7); Neutrophil % 82.2 % (47-70); Platelet Count 256 K/mm3 (150-450); RBC Distribution Width CV 14.7 % (11.6-14.6); RBC Distribution Width SD 49.5 fl (35.1-43.9); Red Blood Count 3.68 M/mm3 (4.2-5.4); White Blood Count 12.4 K/mm3 (4.4-11.0)
[2017-10-04 18:38] LABS: POSITIVE COUNT NO; POSITIVE DIFFERENTIAL NO; POSITIVE MORPHOLOGY NO
[2017-10-04 18:46] LABS: Mucous, Urine 0 SEEN /hpf (<or=2+); Red Blood Cells-Urine 0 SEEN /hpf (0-5)
[2017-10-04 19:02] LABS: Lactic Acid 1.9 mmol/L (0.4-2.0)
[2017-10-04 19:03] LABS: Anion Gap 8 (5-15); BUN 7 mg/dL (7-18); BUN/Creat Ratio 10.2 RATIO (10-20); Calcium,Total 8.6 mg/dL (8.5-10.1); Chloride 102 mmol/L (98-107); Creatinine, Serum 0.69 mg/dL (0.55-1.02); EST Glomerular Filtration Rate 107 mL/min (>60); Est Glom Filt Rate - Afr Amer 130 mL/min (>60); Glucose 111 mg/dL (74-106); Potassium 2.6 mmol/L (3.5-5.1); Sodium Level 138 mmol/L (136-145)
[2017-10-04 19:04] LABS: Pregnancy, Serum, hCG Quali. NEGATIVE Negative (0-9 Nonpreg)
[2017-10-04 19:06] LABS: Color, Urine Amber (Yellow); Glucose, Dipstick Normal (Normal); Ketone-Dipstick 5 mg/dl (Negative); Leukocyte Esterase-Dipstick 500 /ul (Negative); Nitrite-Dipstick Positive (Negative); Occult Blood-Urine 250 /ul (Negative); Protein-Dipstick 100 mg/dl (Negative); Specific Gravity, Urine 1.015 (1.002-1.030); Urine Clarity Cloudy (Clear); Urine Urobilinogen 4 mg/dl (Normal)
[2017-10-04 19:09] LABS: Urine Bilirubin Dipstick 1 mg/dL (Negative)
[2017-10-04 19:21] LABS: White Blood Cells 25-50 SEEN /hpf (0-5)
[2017-10-04 19:22] LABS: Bacteria 3+ /hpf (None Seen); Squamous Epithelial Cells - UA 10-25 SEEN /hpf (5-10)
[2017-10-04 19:23] LABS: Transitional Epithelial - Ur 0-5 SEEN /hpf (0-5)
[2017-10-04] MEDS: Ceftriaxone 1 GM/50 ML BAG IV (19:39)
[2017-10-04 19:53] VITALS: BP 98/60; PULSE 70; RESP 18; O2SAT 98
--- NOTE | 2017-10-04 20:46 | ED.VISSUMM ---
- ER Visit Summary Date of Service: 10/04/17 Chief Complaint: Dysuria History of Present Illness: The patient is a [address] Schmitz on Dr[address] Parada. She reports that she has dysuria and right flank pain that began yesterday. Sharp, aching pains 1010 at worst 910 currently. Is worsened by movement. Is relieved by nothing. She denies any nausea, vomiting, or diarrhea. Her last bowel was yesterday. She has had no melena or hematochezia. Patient complains of dysuria and frequency that began yesterday. She is on her menstrual period now. She denies any vaginal discharge. She states that this is similar to when she has had pyelonephritis before. States this is not similar to her kidney stones. Physical Examination: Vitals: 100.2, 135/65, 117, 18, 100% on room air which is not hypoxic. General: Well-nourished and well-developed. Head: Normocephalic atraumatic. Neck: Supple, no lymphadenopathy. No JVD. Nontender. Cardiovascular: Regular rate and rhythm. No murmurs. Respiratory: No respiratory distress. Clear to auscultation bilaterally. Abdominal: Soft, nontender, nondistended, normal bowel sounds. No guarding, rebound, or peritoneal signs. Back: Severe right CVA tenderness. Extremities: Nontender, no edema. Skin: Normal color, no rash. Neurologic: Alert and oriented ?3. Cranial nerves II through XII are intact. Normal strength and sensation. Psych: Normal affect. Test Results: CBC is marked for white count of 12.4 with a 2 segmented neutrophils and 10 lymphocytes. H&H is 10.8 and 33.8. Chem-7 marked potassium 2.6 glucose of 111. Lactic acid is 1.9. UA has 25-50 white blood cells, but 10-25 epithelial cells. There is 3+ bacteria. test is negative. Emergency Department Course and Treatment: Patient's urine was sent for culture. She was treated with Rocephin IV. She was given K-Dur p.o. Had a prolonged discussion with her she reports that she has a history of being addicted to opioids. States that she had a relapse 6 months ago. She is quite insistent that she has horrible pain that is not relieved by Tylenol or ibuprofen. She is given a single dose of morphine IV. I did discuss with her that this may increase the likelihood of relapse. Treatment Plan: Patient would not be sent home on opiate-based medications. She is instructed to use Tylenol and/or ibuprofen for pain. She will be placed on Keflex. She will also be placed on K-Dur and Zofran. Instructed follow-up her primary care physician in 3-5 days for another exam. Return to the emergency department for any worsening symptoms. Disposition: To home in improved and stable condition. Impression: 1. UTI. 2. Hypokalemia. This note was generated with [employer] dictation software. It may contain incorrect words, spelling, and punctuation that were not noted in review of the chart prior to signing ED Disposition - Plan for ED Patient: Disposition: Home or Assisted Living Chief Complaint: Flank Pain Instructions: ED Potassium Deficiency, ED Kidney Infec Female Prescriptions: Ondansetron [Zofran Odt] 4 mg PO Q8H PRN PRN #10 tablet PRN Reason: Nausea Cephalexin [Keflex] 500 mg PO Q6 #28 capsule Potassium Chloride [K-Dur] 40 meq PO BID #20 tablet Referrals: Barron Schmitz DO [Primary Care Provider] - 3-5 Days
[2017-10-04 21:03] VITALS: PULSE 70; PULSE 78; RESP 16; TEMP 36.7; O2SAT 98
== END 2017-10-04 21:06 | disposition home or self-care (01) ==
PROVIDERS: Emergency Provider Emergency Medicine; Family Provider Student in an Organized Health Care Education/Training Program; PCP Student in an Organized Health Care Education/Training Program
DX: N39.0 Urinary tract infection, site not specified (principal); E87.6 Hypokalemia; F17.210 Nicotine dependence, cigarettes, uncomplicated; Z87.442 Personal history of urinary calculi
CPT/HCPCS: 80048; 81001; 83605; 84703; 85025; 87077; 87086; 87088; 87186; 99285; J7030; A4216; J2405

== ENCOUNTER 2017-10-05 10:42 | Emergency (ER) | payer MEDICAID, SELFPAY ==
[2017-10-05 10:44] VITALS: BP 115/61; PULSE 89; RESP 16; TEMP 36.9; O2SAT 99; BMI 20.5
--- NOTE | 2017-10-05 11:04 | US_ITS ---
STUDY: RENAL ULTRASOUND - COMPLETE REASON FOR EXAM: Female, 27 years old. Right flank pain. Urinary tract infection. TECHNIQUE: Ultrasound evaluation of the kidneys was performed with real-time and static martinez-scale imaging. COMPARISON: CT August 11, 2017 FINDINGS: RIGHT KIDNEY: Normal location of the right kidney, which is normal in size. The right kidney measures 12.4 cm. There is a normal cortex of the right kidney. The renal cortex measures 2.1 cm. There is no right renal mass or cyst. Echogenic central focus consistent with small stone. There is mild hydronephrosis of the right kidney. DISTAL RIGHT URETER: There is non-visualization of the distal right ureter. There is no demonstrated right ureterovesical junction calculus. There is a visualized right ureteral jet. LEFT KIDNEY: Normal location of the left kidney, which is normal in size. The left kidney measures 12.3 cm. There is a normal cortex of the left kidney. The renal cortex measures 2.0 cm. There is no left renal mass or cyst. There are echogenic foci consistent with small stones. There is mild hydronephrosis of the left kidney. DISTAL LEFT URETER: There is non-visualization of the distal left ureter. There is no demonstrated left ureterovesical junction calculus. There is a visualized left ureteral jet. BLADDER: The distended urinary bladder has a volume of 28 ml. There is a normal wall thickness of the distended urinary bladder. There is no demonstrated mass within the urinary bladder. There are no demonstrated bladder calculi. US/Kidney and Bladder IMPRESSION: Mild bilateral hydronephrosis. Small renal stones. Electronically Signed: Chaparro Lombardo MD at 12:40 EDT , Service support ,
[2017-10-05 11:08] VITALS: RESP 16
[2017-10-05] MEDS: Morphine 4 MG/ML Syringe IV ×2 (11:27→13:09)
[2017-10-05] MEDS: 0.9% Normal Saline 1,000 ML 1000 ML IV (11:27)
[2017-10-05] MEDS: Ondansetron 4 MG/2 ML Vial IV (11:28)
[2017-10-05 11:30] LABS: Absolute Lymphocyte Count 1.45 X10^3/ul (0.83-4.51); Absolute Neutrophil Count 8.4 X10^3/uL (2.0-7.7); Basophil# 0.03 X10^3/uL; Basophil% 0.3 % (0-1); Eosinophil# 0.13 X10^3/uL; Eosinophils% 1.2 % (0-5); Hematocrit 29.5 % (37-47); Hemoglobin 9.3 g/dl (12.0-15.0); Lymphocyte # 1.45 X10^3/ul (4.0); Lymphocyte % 13.3 % (19-41); Mean Corp Hgb Conc 31.5 g/gl (32-36); Mean Corpuscular Hgb 29.2 pg (27.0-32.0); Mean Corpuscular Volume 92.5 fL (81-99); Mean Platelet Vol. 9.8 fl (6.2-12.0); Monocyte# 0.88 X10^3/uL; Monocyte% 8.1 % (0-10); Neutrophil # 8.39 X10^3/uL (2.7-7.7); Neutrophil % 76.9 % (47-70); Platelet Count 221 K/mm3 (150-450); RBC Distribution Width CV 14.7 % (11.6-14.6); RBC Distribution Width SD 49.7 fl (35.1-43.9); Red Blood Count 3.19 M/mm3 (4.2-5.4); White Blood Count 10.9 K/mm3 (4.4-11.0)
[2017-10-05 11:31] LABS: POSITIVE COUNT NO; POSITIVE DIFFERENTIAL NO; POSITIVE MORPHOLOGY NO
[2017-10-05 11:40] LABS: Anion Gap 8 (5-15); BUN 10 mg/dL (7-18); BUN/Creat Ratio 16.9 RATIO (10-20); Calcium,Total 8.4 mg/dL (8.5-10.1); Chloride 107 mmol/L (98-107); Creatinine, Serum 0.59 mg/dL (0.55-1.02); EST Glomerular Filtration Rate 128 mL/min (>60); Est Glom Filt Rate - Afr Amer 155 mL/min (>60); Estimated Creatinine Clearance 121.98 ml/min; Glucose 94 mg/dL (74-106); Potassium 3.2 mmol/L (3.5-5.1); Sodium Level 141 mmol/L (136-145)
--- NOTE | 2017-10-05 13:06 | ED.DCSUM_ITS ---
- ER Visit Summary Date of Service: 10/05/17 Chief Complaint: Right flank pain History of Present Illness: The patient is a 27 F who was seen yesterday for right flank pain. She was diagnosed with pyelonephritis and treated with Keflex. Patient presents today with increasing pain. She also has nausea, vomiting, decreased p.o. intake, and decreased sleep. Denies fevers. Denies any other GI symptoms. Denies any specific urinary symptoms. 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 Physical Examination: Afebrile and vital signs unremarkable. Patient appears very uncomfortable, tearful. Skin appears normal without diaphoresis or pallor. Heart regular. Lungs clear. Abdomen is tender in the right flank. No guarding or rebound. Test Results: White count improved, normal. Hematoma 9.3 and potassium 3.2. Ultrasound of her kidney showed mild bilateral hydronephrosis with small renal stones. Emergency Department Course and Treatment: Patient was seen yesterday. I reviewed her previous workups. She had multiple CTs. Her most recent was just less than 2 months ago. She had bilateral kidney stones, 3 mm or less in size. She had a urinalysis yesterday that showed an infection. Cultures show E. coli. Sensitivity is pending, but previous cultures have been pansensitive. Her potassium was 2.6 yesterday and her white count was elevated. I repeated her labs. Her white count is normal. Potassium is 3.2. She received an additional dose of K-Dur here. Patient received morphine, Zofran, and fluids while awaiting results. On reassessment, the patient is much more comfortable. She is eating lunch. No vomiting. She still had some continued pain. I advised her that pyelonephritis can be very painful, and it will take several days to recover. She will continue her Keflex at home. She will follow-up with her doctor for reevaluation. I advised her that if she has resistant bacteria, intractable symptoms, or any other new issues, she should return. I advised that given her history, I do not believe it is safe to prescribe opioids or narcotics. Treatment Plan: As above Disposition: Discharge Impression: 1. Right side pyelonephritis 2. Hypokalemia This note was generated with [employer] software. It may contain incorrect words, spelling, and punctuation that were not noted in review of the chart prior to signing ED Disposition - Plan for ED Patient: Chief Complaint: Nausea/Vomiting Referrals: Barron Schmitz DO [Primary Care Provider] -
--- NOTE | 2017-10-05 13:06 | ED.DEP ---
ED Disposition - Plan for ED Patient: Chief Complaint: Nausea/Vomiting Instructions: ED Kidney Infec Female Referrals: Barron Schmitz DO [Primary Care Provider] -
[2017-10-05 13:15] VITALS: PULSE 78; RESP 14; O2SAT 98
== END 2017-10-05 13:16 | disposition home or self-care (01) ==
PROVIDERS: Emergency Provider Emergency Medicine; Family Provider Student in an Organized Health Care Education/Training Program; PCP Student in an Organized Health Care Education/Training Program
DX: N12 Tubulo-interstitial nephritis, not specified as acute or chronic (principal); E87.6 Hypokalemia; Z72.0 Tobacco use; Z87.442 Personal history of urinary calculi
CPT/HCPCS: 76770; 80048; 85025; 99285; J7030; A4216; J2405

== ENCOUNTER 2017-10-05 20:02 | Inpatient (IN) | payer MEDICAID, SELFPAY ==
[2017-10-05 20:03] VITALS: BP 120/63; PULSE 119; RESP 15; TEMP 38.8; BMI 21.4
--- NOTE | 2017-10-05 20:43 | ED.DCSUM_ITS ---
- ER Visit Summary Date of Service: 10/05/17 Chief Complaint: Right flank pain and fever History of Present Illness: The patient is a 27 F history of prior kidney stones and recently diagnosed with pyelonephritis. Was seen twice in the last 24 hours. The plan was admitted on her second visit she refused. She is back. Patient complaining of right flank pain and fever. Physical Examination: Young female no acute distress complaining of pain vital signs are stable or temperature is 101.8. She does not look septic or toxic. H EENT exam unremarkable. Neck nontender. Lungs clear to auscultation bilaterally. Heart regular rhythm but tachycardic about 110 120. No murmur. Abdomen is soft, nontender, nondistended normal bowel sounds no peritoneal signs. Right upper right lower quadrant unremarkable. Extremities she is moving all 4. Neurologically she is awake alert with no focal deficits. Back exam is right CVA tenderness consistent with pyelonephritis. Test Results: Patient had labs done earlier today white count was bands. Electrolytes unremarkable and potassium 3.2 she is treated for hypokalemia. Urine was consistent with infection. A urine culture is being done currently is consistent with E. coli but sensitivities are not back yet. Emergency Department Course and Treatment: Patient be treated in the ER with IV fluids, IV Ancef and Phenergan for nausea. She also be given a dose of morphine. She reportedly has a Toradol allergy. Treatment Plan: I will speak to the hospitalist for admission. Disposition: Admission Impression: Acute right-sided pyelonephritis with fever History of kidney stones This note was generated with [employer] dictation software. It may contain incorrect words, spelling, and punctuation that were not noted in review of the chart prior to signing ED Disposition - Plan for ED Patient: Chief Complaint: Flank Pain Referrals: Barron Schmitz DO [Primary Care Provider] -
[2017-10-05] MEDS: morphine 8 MG/ML Syringe 6 MG IV (20:53)
[2017-10-05] MEDS: 0.9% Normal Saline 1,000 ML 1000 ML IV (20:53)
[2017-10-05] MEDS: Cefazolin 1 GM/50 ML BAG IV (20:53)
[2017-10-05] MEDS: proMETHazine 25 MG/ML Syringe 12.5 MG IV (20:54)
--- NOTE | 2017-10-05 21:21 | PCM.HP.STD ---
Problem List (1) Pyelonephritis Status: Acute (2) Anemia Status: Acute (3) Hypokalemia Status: Acute History of Present Illness Date of Admission: 10/05/17 Chief Complaint: Pyelonephritis The patient is a 27 year old female admitted for pyelonephritis. She has been seen in the ED twice this third visit within 24 hrs. She had fever and severe right flank pain yesterday. Nothing made the pain better. Movement made the pain worse. Pain is constant and severe. Pain does not radiate and started suddenly. She also c/o fever. Because of no improvement in her fever, she went back to the ED for further workup. 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 Denies: Chills, Weight Change HEENT: Denies: Head Aches, Sinus Congestion, Sinus Drainage Cardiovascular: Denies: Chest Pain, Palpitations Respiratory: Denies: Cough, Shortness of breath at rest, Sputum production Gastrointestinal: Denies: Abdominal Pain, Nausea, Vomiting Genitourinary: Reports: Dysuria Musculoskeletal: Denies: Joint Pain, Joint Tenderness Skin: Denies: Rash, Wounds Neurological: Denies: Numbness, Tingling, Focal weakness Psychiatric: Denies: Anxiety, Depression, Homicidal Ideations, Suicidal Ideations Hematologic/ Lymphatic: Denies: Easy Bruising, Easy Bleeding VTE Information - Inpt Only VTE Present on Admission: No VTE Mechan Device Prophylaxis: SCD's VTE Pharm Prophylaxis ordered?: Yes Patient Problems: Active and Suspected Problems Pyelonephritis (Acute) Anemia (Acute) Hypokalemia (Acute) - Physical Exam General: Alert, Oriented x3, Cooperative HEENT: Atraumatic, PERRLA, EOMI, Normocephalic Neck: Supple, No JVD, Negative Carotid Bruits Lungs: Clear to auscultation, Normal air movement Cardiovascular: Regular rate, No murmurs Abdomen: Bowel Sounds Present, Soft, Non Tender Extremities: No edema, Capillary Refill Less than 3 Seconds Skin: No rashes, No breakdown Musculoskeletal: No Tenderness to Palpation of Joints or Extremities Neurological: Cranial nerves II-XII grossly intact Psych/Mental Status: Normal Affect, Appropriate Vital Signs Temp Pulse Resp BP 101.8 F H 119 H 15 120/63 10/05/17 20:03 10/05/17 20:03 10/05/17 20:03 10/05/17 20:03 Weight: 56.5 kg Body Mass Index (BMI) 21.4 Assessment/Plan All Active Problems Pyelonephritis (Acute) Anemia (Acute) Hypokalemia (Acute) Encounter for sterilization (Acute) 27 year old female admitted for pyelonephritis. 1) Pyelonephritis: Will start ceftriaxone and tobramycin. Cultures pending. Will repeat US. 2) Kidney stones: H/o frequent UTIs. Will probably need PTH and VitD, and 24 hrs urine litholink outpt. Advise hydration. Consulted urology. 3) Hypokalemia: K 3.2 Replaced. Serial labs. Monitor. 4) Anemia: H and H stable. Supportive care. Monitor. 5) Prophylaxis: SCD / heparin.
[2017-10-05 21:59] VITALS: BMI 21.8
[2017-10-05 22:21] VITALS: BP 107/53; PULSE 94; RESP 20; TEMP 37.9; O2SAT 100
[2017-10-05 22:33] LABS: Absolute Lymphocyte Count 1.76 X10^3/ul (0.83-4.51); Absolute Neutrophil Count 7.8 X10^3/uL (2.0-7.7); Basophil# 0.02 X10^3/uL; Basophil% 0.2 % (0-1); Eosinophil# 0.12 X10^3/uL; Eosinophils% 1.2 % (0-5); Erythrocyte Sedimentation Rate 44 mm/hr (0-20); Hematocrit 29.8 % (37-47); Hemoglobin 9.3 g/dl (12.0-15.0); Lymphocyte # 1.76 X10^3/ul (4.0); Lymphocyte % 17.2 % (19-41); Mean Corp Hgb Conc 31.2 g/gl (32-36); Mean Corpuscular Hgb 29.1 pg (27.0-32.0); Mean Corpuscular Volume 93.1 fL (81-99); Mean Platelet Vol. 9.9 fl (6.2-12.0); Monocyte# 0.56 X10^3/uL; Monocyte% 5.5 % (0-10); Neutrophil # 7.79 X10^3/uL (2.7-7.7); Neutrophil % 75.8 % (47-70); Platelet Count 245 K/mm3 (150-450); RBC Distribution Width CV 14.9 % (11.6-14.6); RBC Distribution Width SD 50.8 fl (35.1-43.9); White Blood Count 10.3 K/mm3 (4.4-11.0)
[2017-10-05 22:34] LABS: POSITIVE COUNT NO; POSITIVE DIFFERENTIAL NO; POSITIVE MORPHOLOGY NO
[2017-10-05 22:36] LABS: Anion Gap 8 (5-15); BUN 7 mg/dL (7-18); BUN/Creat Ratio 11.2 RATIO (10-20); Calcium,Total 8.4 mg/dL (8.5-10.1); Chloride 108 mmol/L (98-107); Creatinine, Serum 0.63 mg/dL (0.55-1.02); EST Glomerular Filtration Rate 120 mL/min (>60); Est Glom Filt Rate - Afr Amer 145 mL/min (>60); Glucose 85 mg/dL (74-106); Potassium 3.2 mmol/L (3.5-5.1); Sodium Level 139 mmol/L (136-145)
[2017-10-05 22:43] LABS: Hemoglobin A1c 4.4 % (4.2-6.3)
[2017-10-05] MEDS: HYDROmorphone 0.5 MG/0.5 ML SYRINGE IV (22:50)
[2017-10-05 22:52] LABS: Lactic Acid 1.8 mmol/L (0.4-2.0)
[2017-10-05 22:56] LABS: Bacteria 0 SEEN /hpf (None Seen); Mucous, Urine 0 SEEN /hpf (<or=2+); Red Blood Cells-Urine 0 SEEN /hpf (0-5)
[2017-10-05 22:59] LABS: Color, Urine Yellow (Yellow); Glucose, Dipstick Normal (Normal); Ketone-Dipstick Negative (Negative); Leukocyte Esterase-Dipstick 25 /ul (Negative); Nitrite-Dipstick Negative (Negative); Occult Blood-Urine 25 /ul (Negative); Protein-Dipstick Negative (Negative); Specific Gravity, Urine 1.005 (1.002-1.030); Urine Bilirubin Dipstick Negative (Negative); Urine Clarity Clear (Clear); Urine Urobilinogen Normal (Normal)
--- NOTE | 2017-10-05 23:00 | PCM.RX.CS ---
Consult Pharmacy has been consulted to manage selected antiobiotic: Tobramycin Type of Consult: New start Suspected Infection: Other Prior Doses of Antibiotics Received/Current Regimen: Medications Tobramycin Sulfate 270 mg/ (Dextrose) 56.75 mls @ 100 mls/hr IV Q24H JULIANE Last Admin: 10/05/17 22:51 Dose: 100 mls/hr Labs: Sodium 139 mmol/L (136-145) 10/05/17 22:15 Potassium 3.2 mmol/L (3.5-5.1) L 10/05/17 22:15 Chloride 108 mmol/L (98-107) H 10/05/17 22:15 Carbon Dioxide 23.0 mmol/L (21.0-32.0) 10/05/17 22:15 Anion Gap 8 (5-15) 10/05/17 22:15 BUN 7 mg/dL (7-18) 10/05/17 22:15 Creatinine 0.63 mg/dL (0.55-1.02) 10/05/17 22:15 Est GFR (MDRD) Af Amer 145 mL/min (>60) 10/05/17 22:15 Est GFR (MDRD) Non-Af 120 mL/min (>60) 10/05/17 22:15 BUN/Creatinine Ratio 11.2 RATIO (10-20) 10/05/17 22:15 Glucose 85 mg/dL (74-106) 10/05/17 22:15 Weight used for dosin.7 kg - IBW Estimated Creatinine Clearance: 114 Pharmacy Plan for Drug Dosing: Pharmacy Service will continue to monitor and adjust dosing as required. Goal for random tobramycin level <1. Follow-Up Labs: Trough Tobramycin - random level Labs to be done on [date and time ordered]: 10/06/17 @1500 (16-hr level)
[2017-10-05 23:06] LABS: Squamous Epithelial Cells - UA 0-5 SEEN /hpf (5-10); White Blood Cells 0-5 SEEN /hpf (0-5)
[2017-10-05 23:30] VITALS: PULSE 88
[2017-10-06] VITALS (11 sets, daily range): BP systolic 87–102; BP diastolic 46–54; PULSE 60–89; RESP 16–18; TEMP 36.4–37.1; O2SAT 98–100
--- NOTE | 2017-10-06 | CT_ITS ---
STUDY: CT ABDOMEN AND PELVIS WITHOUT CONTRAST REASON FOR EXAM: Female, 27 years old. Right flank pain. Anemia. Pyelonephritis. Rule out retroperitoneal hemorrhage. RADIATION DOSAGE (If Supplied By Facility): CTDIvol = ( 6.06 ) mGy, DLP = ( 325.32 ) mGycm TECHNIQUE: Transaxial images were obtained from the dome of the diaphragm to the symphysis pubis without oral contrast, and without intravenous contrast. Sagittal and coronal images were reconstructed. Individualized dose optimization techniques were used for this CT. COMPARISON: Ultrasound October 05, 2017. CT August 11, 2017. FINDINGS: The visualized lung bases are unremarkable. The visualized portions of the heart are within normal limits. Normal liver. Normal gallbladder and extrahepatic biliary system. Normal spleen. Normal pancreas. Normal bilateral adrenal glands. There is a 0.3 cm stone in the midpole of the right kidney. There is 0.3 cm stone in the lower pole of the left kidney. There is perinephric stranding on the right. There is no hydronephrosis. Normal visualized stomach. Normal small intestine. Normal colon. There is moderately abundant stool. The appendix is visualized and appears normal. Normal abdominal aorta. Normal inferior vena cava. Normal retroperitoneum. Normal urinary bladder. Normal visualized uterus. There is no free fluid in the abdomen or pelvis. Normal abdominal wall. Normal osseous structures. CT/Abdomen/Pelvis without Cont IMPRESSION: Bilateral renal stones. Perinephric stranding on the right. No hydronephrosis. No dominant mass or hematoma seen. Electronically Signed: Chaparro Lombardo MD at 10:35 EDT , Service support ,
[2017-10-06] MEDS: HYDROmorphone 0.5 MG/0.5 ML SYRINGE IV ×2 (00:52→07:39)
--- NOTE | 2017-10-06 05:43 | NURSING ---
Prior to this RN going into patients room to check AM VS patients HR was 49. This RN went into check VS and patient requesting PRN dilaudid at this time. This RN explained to patient that because of her low HR this RN did not feel comfortable giving IV pain medication. BP checked at this time and SBP in the 80's. This RN did not feel comfortable giving PO oxycodone at this time as well d/t BP. PRN tylenol offered and patient refused. Patient encouraged to drink water and move around. Patient stated that she wanted to talk to a doctor. algebra tutor aware of situation. Will recheck VS.
[2017-10-06] MEDS: oxyCODONE 5 MG Tablet PO ×4 (05:55→18:48)
[2017-10-06 06:00] LABS: Absolute Lymphocyte Count 2.18 X10^3/ul (0.83-4.51); Absolute Neutrophil Count 3.2 X10^3/uL (2.0-7.7); Basophil# 0.04 X10^3/uL; Basophil% 0.6 % (0-1); Eosinophil# 0.19 X10^3/uL; Hematocrit 27.5 % (37-47); Hemoglobin 8.5 g/dl (12.0-15.0); Lymphocyte # 2.18 X10^3/ul (4.0); Lymphocyte % 34.5 % (19-41); Mean Corp Hgb Conc 30.9 g/gl (32-36); Mean Corpuscular Hgb 29.7 pg (27.0-32.0); Mean Corpuscular Volume 96.2 fL (81-99); Mean Platelet Vol. 10.9 fl (6.2-12.0); Monocyte# 0.66 X10^3/uL; Monocyte% 10.4 % (0-10); Neutrophil # 3.24 X10^3/uL (2.7-7.7); Neutrophil % 51.3 % (47-70); Platelet Count 209 K/mm3 (150-450); RBC Distribution Width CV 14.8 % (11.6-14.6); RBC Distribution Width SD 49.8 fl (35.1-43.9); Red Blood Count 2.86 M/mm3 (4.2-5.4); White Blood Count 6.3 K/mm3 (4.4-11.0)
[2017-10-06 06:01] LABS: POSITIVE COUNT NO; POSITIVE DIFFERENTIAL NO
[2017-10-06 06:02] LABS: POSITIVE MORPHOLOGY NO
[2017-10-06 06:16] LABS: Anion Gap 7 (5-15); BUN 7 mg/dL (7-18); BUN/Creat Ratio 16.8 RATIO (10-20); Calcium,Total 7.6 mg/dL (8.5-10.1); Chloride 113 mmol/L (98-107); Creatinine, Serum 0.42 mg/dL (0.55-1.02); EST Glomerular Filtration Rate 192 mL/min (>60); Est Glom Filt Rate - Afr Amer 233 mL/min (>60); Glucose 99 mg/dL (74-106); Potassium 4.2 mmol/L (3.5-5.1); Sodium Level 146 mmol/L (136-145)
[2017-10-06] MEDS: 0.9% NaCl Peripheral Flush Adult/Peds IV ×3 (07:40→19:49)
--- NOTE | 2017-10-06 08:46 | PCM.CONS.U ---
Problem List (1) Pyelonephritis Status: Acute Reason for Consult Date of Consultation: 10/06/17 Reason for Consultation: Recurrent UTIs recent right pyelonephritis History of Present Illness: The patient is a 27 year old female presents to the hospital with a UTI and right flank pain, urine culture from the ER is pending urinalysis was only slightly positive want to see what the cultures show. She did have fevers documented in the ER she is now afebrile she is on IV antibiotics ultrasound reviewed she has some small bilateral kidney stones no obstruction some minimal hydronephrosis on both sides but not significant. She is a homemaker. 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 Lives: Spouse/ Significant Other Smoking Status: Current every day smoker Alcohol: None Drugs: None - *Family History Maternal History Items: No pertinent history Review of Systems Constitutional: Reports: Fever HEENT: Denies: Head Aches, Sinus Congestion, Sinus Drainage Cardiovascular: Denies: Chest Pain, Palpitations Respiratory: Denies: Cough, Shortness of breath at rest, Sputum production Gastrointestinal: Denies: Abdominal Pain, Nausea, Vomiting Genitourinary: Reports: - - Frequent UTIs Musculoskeletal: Denies: Joint Pain, Joint Tenderness Skin: Denies: Rash, Wounds Neurological: Denies: Numbness, Tingling, Focal weakness Psychiatric: Denies: Anxiety, Depression, Homicidal Ideations, Suicidal Ideations Hematologic/ Lymphatic: Denies: Easy Bruising, Easy Bleeding Physical Exam - Physical Exam Vital Signs Temp 98.8 F 10/06/17 05:57 Pulse 66 10/06/17 05:57 Resp 16 10/06/17 05:57 BP 94/54 L 10/06/17 05:57 Pulse Ox 100 10/06/17 05:57 Intake & Output 10/04/17 10/05/17 10/06/17 23:59 23:59 23:59 Intake Total 1322 / 1322 Balance 1322 / 1322 Weight: 57.7 kg Intake: Oral 500 / 500 IV fluid/meds 822 / 822 General: Alert, Oriented x3 HEENT: Atraumatic Oral: Moist Mucosa Neck: Supple Lungs: Normal air movement Cardiovascular: Regular rate Abdomen: Bowel Sounds Present, Soft Rectal: Exam deferred Laboratory Tests Past 24 Hrs 10/05/17 10/05/17 10/05/17 22:15 22:15 22:15 WBC 10.3 RBC 3.20 L Hgb 9.3 L Hct 29.8 L MCV 93.1 MCH 29.1 MCHC 31.2 L RDW 14.9 H RDW Differential 50.8 H Plt Count 245 MPV 9.9 Immature Gran % (Auto) 0.100 Neut % (Auto) 75.8 H Lymph % (Auto) 17.2 L [place] % (Auto) 5.5 Eos % (Auto) 1.2 Baso % (Auto) 0.2 Absolute Neuts (auto) 7.8 H Absolute Lymphs (auto) 1.76 Total Counted Not Reportable ESR 44 H Sodium 139 Potassium 3.2 L Chloride 108 H Carbon Dioxide 23.0 Anion Gap 8 BUN 7 Creatinine 0.63 Estim Creat Clear Calc 114.80 Est GFR (MDRD) Af Amer 145 Est GFR (MDRD) Non-Af 120 BUN/Creatinine Ratio 11.2 Glucose 85 Hemoglobin A1c 4.4 Lactic Acid Calcium 8.4 L Urine Color Urine Clarity Urine pH Ur Specific [place] Urine Protein Urine Glucose (UA) Urine Ketones Urine Occult Blood Urine Nitrite Urine Bilirubin Urine Urobilinogen Ur Leukocyte Esterase Urine RBC Urine WBC Ur Squamous Epith Cells Urine Bacteria Urine Mucus 10/05/17 10/05/17 10/06/17 22:15 22:50 05:25 WBC RBC Hgb Hct MCV MCH MCHC RDW RDW Differential Plt Count MPV Immature Gran % (Auto) Neut % (Auto) Lymph % (Auto) [place] % (Auto) Eos % (Auto) Baso % (Auto) Absolute Neuts (auto) Absolute Lymphs (auto) Total Counted ESR Sodium 146 H Potassium 4.2 Chloride 113 H Carbon Dioxide 26.0 Anion Gap 7 BUN 7 Creatinine 0.42 L Estim Creat Clear Calc 172.20 Est GFR (MDRD) Af Amer 233 Est GFR (MDRD) Non-Af 192 BUN/Creatinine Ratio 16.8 Glucose 99 Hemoglobin A1c Lactic Acid 1.8 Calcium 7.6 L Urine Color Yellow Urine Clarity Clear Urine pH 7.0 Ur Specific [place] 1.005 Urine Protein Negative Urine Glucose (UA) Normal Urine Ketones Negative Urine Occult Blood 25 H Urine Nitrite Negative Urine Bilirubin Negative Urine Urobilinogen Normal Ur Leukocyte Esterase 25 H Urine RBC 0 SEEN Urine WBC 0-5 SEEN Ur Squamous Epith Cells 0-5 SEEN Urine Bacteria 0 SEEN Urine Mucus 0 SEEN 10/06/17 05:25 WBC 6.3 RBC 2.86 L Hgb 8.5 L Hct 27.5 L MCV 96.2 MCH 29.7 MCHC 30.9 L RDW 14.8 H RDW Differential 49.8 H Plt Count 209 MPV 10.9 Immature Gran % (Auto) 0.200 Neut % (Auto) 51.3 Lymph % (Auto) 34.5 [place] % (Auto) 10.4 H Eos % (Auto) 3.0 Baso % (Auto) 0.6 Absolute Neuts (auto) 3.2 Absolute Lymphs (auto) 2.18 Total Counted Not Reportable ESR Sodium Potassium Chloride Carbon Dioxide Anion Gap BUN Creatinine Estim Creat Clear Calc Est GFR (MDRD) Af Amer Est GFR (MDRD) Non-Af BUN/Creatinine Ratio Glucose Hemoglobin A1c Lactic Acid Calcium Urine Color Urine Clarity Urine pH Ur Specific [place] Urine Protein Urine Glucose (UA) Urine Ketones Urine Occult Blood Urine Nitrite Urine Bilirubin Urine Urobilinogen Ur Leukocyte Esterase Urine RBC Urine WBC Ur Squamous Epith Cells Urine Bacteria Urine Mucus Assessment/Plan All Active Problems Pyelonephritis (Acute) Anemia (Acute) Hypokalemia (Acute) Encounter for sterilization (Acute) 27-year-old female admitted for right pyelonephritis small kidney stones no obstruction. Continue with IV antibiotics. Switch over to oral antibiotics per cultures, will be see what culture grows out. Subjectively better today no more fevers or chills. She can follow-up as an outpatient for further workup for kidney stones and also workup for you recurrent UTIs may offer her either suppressive antibiotics or self treatment antibiotics. Call with questions. Urine culture from the first ER visit came back positive with E. coli prior E. coli was also pansensitive. Sensitivities pending.
--- NOTE | 2017-10-06 08:52 | PCM.PN.HOSP ---
Patient Problems: Active and Suspected Problems Pyelonephritis (Acute) Anemia (Acute) Hypokalemia (Acute) Subjective: Still with Right flank pain. Vitals/I&O's: Vital Signs Temp Pulse Resp BP Pulse Ox 37.1 C 66 16 94/54 L 100 10/06/17 05:57 10/06/17 05:57 10/06/17 05:57 10/06/17 05:57 10/06/17 05:57 Oxygen Delivery Method Room Air Weight: 57.7 kg Body Mass Index (BMI) 21.8 Intake and Output for Last 24 Hours 10/04/17 10/05/17 10/06/17 23:59 23:59 23:59 Intake Total 1322 / 1322 Balance 1322 / 1322 General: Alert, No apparent distress HEENT: Atraumatic, Normocephalic Oral: Moist Mucosa, No Gingival or Mucosal Lesions/ Ulcerations Neck: No Nodes, Thyroid Normal Size and Texture Lungs: Clear to auscultation, Normal air movement, No rhonchi, No wheeze Cardiovascular: Regular rate, Regular Rhythm, Normal S1, Normal S2 Abdomen: Bowel Sounds Present, Soft, Non-Distended, No Hepato-splenomegaly, - - Right CVA tenderness with very mild palpation. Extremities: No edema, No Calf Tenderness Skin: No rashes, No breakdown Psych/Mental Status: Normal Affect, Appropriate Laboratory Results 10/05/17 22:15: WBC 10.3, RBC 3.20 L, Hgb 9.3 L, Hct 29.8 L, MCV 93.1, MCH 29.1, MCHC 31.2 L, RDW 14.9 H, RDW Differential 50.8 H, Plt Count 245, MPV 9.9, Immature Gran % (Auto) 0.100, Neut % (Auto) 75.8 H, Lymph % (Auto) 17.2 L, [place] % (Auto) 5.5, Eos % (Auto) 1.2, Baso % (Auto) 0.2, Absolute Neuts (auto) 7.8 H, Absolute Lymphs (auto) 1.76, Total Counted Not Reportable, ESR 44 H 10/05/17 22:15: Sodium 139, Potassium 3.2 L, Chloride 108 H, Carbon Dioxide 23.0, Anion Gap 8, BUN 7, Creatinine 0.63, Estim Creat Clear Calc 114.80, Est GFR (MDRD) Af Amer 145, Est GFR (MDRD) Non-Af 120, BUN/Creatinine Ratio 11.2, Glucose 85, Calcium 8.4 L 10/05/17 22:15: Hemoglobin A1c 4.4 10/05/17 22:15: Lactic Acid 1.8 10/05/17 22:50: Urine Color Yellow, Urine Clarity Clear, Urine pH 7.0, Ur Specific [place] 1.005, Urine Protein Negative, Urine Glucose (UA) Normal, Urine Ketones Negative, Urine Occult Blood 25 H, Urine Nitrite Negative, Urine Bilirubin Negative, Urine Urobilinogen Normal, Ur Leukocyte Esterase 25 H, Urine RBC 0 SEEN, Urine WBC 0-5 SEEN, Ur Squamous Epith Cells 0-5 SEEN, Urine Bacteria 0 SEEN, Urine Mucus 0 SEEN 10/06/17 05:25: Sodium 146 H, Potassium 4.2, Chloride 113 H, Carbon Dioxide 26.0, Anion Gap 7, BUN 7, Creatinine 0.42 L, Estim Creat Clear Calc 172.20, Est GFR (MDRD) Af Amer 233, Est GFR (MDRD) Non-Af 192, BUN/Creatinine Ratio 16.8, Glucose 99, Calcium 7.6 L 10/06/17 05:25: WBC 6.3, RBC 2.86 L, Hgb 8.5 L, Hct 27.5 L, MCV 96.2, MCH 29.7, MCHC 30.9 L, RDW 14.8 H, RDW Differential 49.8 H, Plt Count 209, MPV 10.9, Immature Gran % (Auto) 0.200, Neut % (Auto) 51.3, Lymph % (Auto) 34.5, [place] % (Auto) 10.4 H, Eos % (Auto) 3.0, Baso % (Auto) 0.6, Absolute Neuts (auto) 3.2, Absolute Lymphs (auto) 2.18, Total Counted Not Reportable Current Medications Acetaminophen (Tylenol) 650 mg PO Q6H PRN PRN PRN Reason: Mild Pain (scale 0-3)/T>100.7 Heparin Sodium (Porcine) (Heparin Na) 5,000 unit SC Q8 JULIANE Last Admin: 10/06/17 05:50 Dose: Not Given Hydromorphone HCl (Dilaudid Inj) 0.5 mg IV Q2H PRN PRN PRN Reason: SEVERE PAIN (6-10/10) Last Admin: 10/06/17 07:39 Dose: 0.5 mg Ceftriaxone Sodium (Rocephin) 1 gm in 50 mls @ 100 mls/hr IV Q24 JULIANE Potassium Chloride/Sodium Chloride () 1,000 mls @ 125 mls/hr IV .Q8H JULIANE Last Admin: 10/06/17 07:40 Dose: 125 mls/hr Magnesium Hydroxide (Milk Of Magnesia) 30 ml PO DAILY PRN PRN PRN Reason: Constipation Ondansetron HCl (Zofran) 4 mg IV Q8H PRN PRN PRN Reason: Nausea Oxycodone HCl (Oxyir) 5 mg PO Q4H PRN PRN PRN Reason: Moderate Pain (pain scale 4-5) Last Admin: 10/06/17 05:55 Dose: 5 mg Prochlorperazine Edisylate (Compazine Iv) 10 mg IV Q6H PRN PRN PRN Reason: Nausea/Vomiting Sodium Chloride () 5 - 30 ml IV UD PRN PRN Reason: SALINE FLUSH Last Admin: 10/06/17 07:40 Dose: 10 ml Medical Necessity - Tobacco Use Smoking Status: Current every day smoker Assessment/Plan All Active Problems Pyelonephritis (Acute) Anemia (Acute) Hypokalemia (Acute) Encounter for sterilization (Acute) 1. Pyelonephritis: continue w CTX deescalate abx based on culture (UCx from growing out E. coli) pain well out of proportion to exam. 2. Hydronephrosis: no obstruction no indication for surgery at this time follow up with as outpt 3. Hyponatremia resolved 4. Anemia: 10.8 to 8.5 with the drop in her hemoglobin, pain out prop to exam, will check a CT to r/o retroperitoneal bleed. Code Visit Inpatient E&M: 59916 Subs Hosp L2
--- NOTE | 2017-10-06 09:00 | PN_ITS ---
Patient Problems: Active and Suspected Problems Pyelonephritis (Acute) Anemia (Acute) Hypokalemia (Acute) Subjective: Still with Right flank pain. Vitals/I&O's: Vital Signs Temp Pulse Resp BP Pulse Ox 37.1 C 66 16 94/54 L 100 10/06/17 05:57 10/06/17 05:57 10/06/17 05:57 10/06/17 05:57 10/06/17 05:57 Oxygen Delivery Method Room Air Weight: 57.7 kg Body Mass Index (BMI) 21.8 Intake and Output for Last 24 Hours 10/04/17 10/05/17 10/06/17 23:59 23:59 23:59 Intake Total 1322 / 1322 Balance 1322 / 1322 General: Alert, No apparent distress HEENT: Atraumatic, Normocephalic Oral: Moist Mucosa, No Gingival or Mucosal Lesions/ Ulcerations Neck: No Nodes, Thyroid Normal Size and Texture Lungs: Clear to auscultation, Normal air movement, No rhonchi, No wheeze Cardiovascular: Regular rate, Regular Rhythm, Normal S1, Normal S2 Abdomen: Bowel Sounds Present, Soft, Non-Distended, No Hepato-splenomegaly, - - Right CVA tenderness with very mild palpation. Extremities: No edema, No Calf Tenderness Skin: No rashes, No breakdown Psych/Mental Status: Normal Affect, Appropriate Laboratory Results 10/05/17 22:15: WBC 10.3, RBC 3.20 L, Hgb 9.3 L, Hct 29.8 L, MCV 93.1, MCH 29.1 , MCHC 31.2 L, RDW 14.9 H, RDW Differential 50.8 H, Plt Count 245, MPV 9.9, Immature Gran % (Auto) 0.100, Neut % (Auto) 75.8 H, Lymph % (Auto) 17.2 L, [place] % (Auto) 5.5, Eos % (Auto) 1.2, Baso % (Auto) 0.2, Absolute Neuts (auto) 7.8 H, Absolute Lymphs (auto) 1.76, Total Counted Not Reportable, ESR 44 H 10/05/17 22:15: Sodium 139, Potassium 3.2 L, Chloride 108 H, Carbon Dioxide 23.0 , Anion Gap 8, BUN 7, Creatinine 0.63, Estim Creat Clear Calc 114.80, Est GFR ( MDRD) Af Amer 145, Est GFR (MDRD) Non-Af 120, BUN/Creatinine Ratio 11.2, Glucose 85, Calcium 8.4 L 10/05/17 22:15: Hemoglobin A1c 4.4 10/05/17 22:15: Lactic Acid 1.8 10/05/17 22:50: Urine Color Yellow, Urine Clarity Clear, Urine pH 7.0, Ur Specific [place] 1.005, Urine Protein Negative, Urine Glucose (UA) Normal, Urine Ketones Negative, Urine Occult Blood 25 H, Urine Nitrite Negative, Urine Bilirubin Negative, Urine Urobilinogen Normal, Ur Leukocyte Esterase 25 H, Urine RBC 0 SEEN, Urine WBC 0-5 SEEN, Ur Squamous Epith Cells 0-5 SEEN, Urine Bacteria 0 SEEN, Urine Mucus 0 SEEN 10/06/17 05:25: Sodium 146 H, Potassium 4.2, Chloride 113 H, Carbon Dioxide 26.0 , Anion Gap 7, BUN 7, Creatinine 0.42 L, Estim Creat Clear Calc 172.20, Est GFR (MDRD) Af Amer 233, Est GFR (MDRD) Non-Af 192, BUN/Creatinine Ratio 16.8, Glucose 99, Calcium 7.6 L 10/06/17 05:25: WBC 6.3, RBC 2.86 L, Hgb 8.5 L, Hct 27.5 L, MCV 96.2, MCH 29.7, MCHC 30.9 L, RDW 14.8 H, RDW Differential 49.8 H, Plt Count 209, MPV 10.9, Immature Gran % (Auto) 0.200, Neut % (Auto) 51.3, Lymph % (Auto) 34.5, [place] % ( Auto) 10.4 H, Eos % (Auto) 3.0, Baso % (Auto) 0.6, Absolute Neuts (auto) 3.2, Absolute Lymphs (auto) 2.18, Total Counted Not Reportable Current Medications Acetaminophen (Tylenol) 650 mg PO Q6H PRN PRN PRN Reason: Mild Pain (scale 0-3)/T>100.7 Heparin Sodium (Porcine) (Heparin Na) 5,000 unit SC Q8 JULIANE Last Admin: 10/06/17 05:50 Dose: Not Given Hydromorphone HCl (Dilaudid Inj) 0.5 mg IV Q2H PRN PRN PRN Reason: SEVERE PAIN (6-10/10) Last Admin: 10/06/17 07:39 Dose: 0.5 mg Ceftriaxone Sodium (Rocephin) 1 gm in 50 mls @ 100 mls/hr IV Q24 JULIANE Potassium Chloride/Sodium Chloride () 1,000 mls @ 125 mls/hr IV .Q8H JULIANE Last Admin: 10/06/17 07:40 Dose: 125 mls/hr Magnesium Hydroxide (Milk Of Magnesia) 30 ml PO DAILY PRN PRN PRN Reason: Constipation Ondansetron HCl (Zofran) 4 mg IV Q8H PRN PRN PRN Reason: Nausea Oxycodone HCl (Oxyir) 5 mg PO Q4H PRN PRN PRN Reason: Moderate Pain (pain scale 4-5) Last Admin: 10/06/17 05:55 Dose: 5 mg Prochlorperazine Edisylate (Compazine Iv) 10 mg IV Q6H PRN PRN PRN Reason: Nausea/Vomiting Sodium Chloride () 5 - 30 ml IV UD PRN PRN Reason: SALINE FLUSH Last Admin: 10/06/17 07:40 Dose: 10 ml Medical Necessity - Tobacco Use Smoking Status: Current every day smoker Assessment/Plan All Active Problems Pyelonephritis (Acute) Anemia (Acute) Hypokalemia (Acute) Encounter for sterilization (Acute) 1. Pyelonephritis: * continue w CTX * deescalate abx based on culture (UCx from growing out E. coli) * pain well out of proportion to exam. 2. Hydronephrosis: * no obstruction * no indication for surgery at this time * follow up with as outpt 3. Hyponatremia * resolved 4. Anemia: * 10.8 to 8.5 * with the drop in her hemoglobin, pain out prop to exam, will check a CT to r/ o retroperitoneal bleed. Code Visit Inpatient E&M: 38789 Subs Hosp L2
[2017-10-06] MEDS: Ceftriaxone 1 GM/50 ML BAG IV (09:18)
--- NOTE | 2017-10-06 11:29 | NURSING ---
Pt requested to have her IV locked and wants to go see her kids. Pt was notified that her children are welcome to come up and visit her. She is not bringing them up here. States she is a 27 yr old and she can leave if she wants to. Pt was notified that is concerning that her blood pressure and heart rate has been low and that receiving ivp dilaudid is not advised. Pt was adamant to see her kids. Pt had her friend took her down with the wheelchair. Pt was later seen smoking with friends out in entrance.
[2017-10-06] MEDS: proCHLORPERazine 10 MG/2 ML Vial IV (12:48)
[2017-10-06] MEDS: Phenazopyridine 95 MG Tablet 190 MG PO ×2 (14:38→22:33)
[2017-10-06] MEDS: Acetaminophen 325 MG Tablet 650 MG PO (19:48)
[2017-10-06] MEDS: Zolpidem Tartrate 5 MG Tablet PO (22:33)
[2017-10-07] VITALS: PULSE 79
--- NOTE | 2017-10-07 00:27 | NURSING ---
Pt had rung out for pain medicine. Pt asleep when this nurse brought med. Did not disturb pt. Returned med to accudose.
--- NOTE | 2017-10-07 02:28 | NURSING ---
Pt called out for pain medication. Upon entering pts room approx 10 minutes later, pt snoring softly. Eyes closed. Not disturbed.
[2017-10-07 03:34] VITALS: BP 91/53; PULSE 72; RESP 16; TEMP 37.1; O2SAT 99
[2017-10-07] MEDS: oxyCODONE 5 MG Tablet PO (03:37)
[2017-10-07 04:02] VITALS: PULSE 70
[2017-10-07] MEDS: Phenazopyridine 95 MG Tablet 190 MG PO (06:20)
[2017-10-07 06:21] VITALS: PULSE 85
[2017-10-07] MEDS: Acetaminophen 325 MG Tablet 650 MG PO (07:33)
[2017-10-07 08:34] VITALS: BP 111/72; PULSE 67; RESP 18; TEMP 36.6; O2SAT 96
--- NOTE | 2017-10-07 08:34 | DCINST_ITS ---
- Discharge Diagnoses Current Active Problems: Current Active and Chronic Problems Pyelonephritis (Acute) Anemia (Acute) Hypokalemia (Acute) You will use the following diet at home:: No restrictions Allergies/Adverse Reactions: Allergies ketorolac tromethamine [From Toradol] Allergy (Verified 10/05/17 20:06) Hives latex Allergy (Verified 10/05/17 20:06) Rash morphine [From Duramorph (PF)] Allergy (Verified 10/05/17 20:06) Hives Medications to take at Discharge Ondansetron [Zofran Odt] 4 mg PO Q8H PRN PRN #10 tablet 10/04/17 Potassium Chloride [K-Dur] 40 meq PO BID #20 tablet 10/04/17 Ciprofloxacin [Cipro] 500 mg PO BID #14 tab 10/07/17 The following prescriptions were given: Ciprofloxacin [Cipro] 500 mg PO BID #14 tab Primary Care Physician: Barron Schmitz DO [Primary Care Provider] - Please follow up with your Primary Care Physician in: in 5-7 days Test Results: Test results from this visit will be discussed in further detail at your follow- up appointment, if applicable. Proposed Discharge Date: 10/07/17
--- NOTE | 2017-10-07 08:35 | PCM.DC.SUM ---
Discharge Date and Diagnosis Date of Admission: 10/05/17 Date of Discharge: 10/07/17 - Primary Discharge Diagnosis Active and Suspected Problems Pyelonephritis (Acute) Anemia (Acute) Hypokalemia (Acute) Hospital Course and Treatment Imaging Results: Clinical Impression(s) from Imaging Studies Abdomen/Pelvis CT 10/06/17 00:00 IMPRESSION: Bilateral renal stones. Perinephric stranding on the right. No hydronephrosis. No dominant mass or hematoma seen. Electronically Signed: Chaparro Lombardo MD at 10:35 EDT , Service support , Summary of Care Provided: The patient is a 27 year old F admitted with flank pain 1. Acute pyelonephritis with E. coli patient was managed with Rocephin discharge him on ciprofloxacin after obtaining culture result. Patient had a significant drop in her hemoglobin level resulting CAT scan being obtained which is negative however did show perinephric stranding consistent with acute pyelonephritis 2. Hyponatremia secondary to hypovolemic hyponatremia managed with IV fluids 3. Anemia secondary to anemia of chronic disorder patient hemoglobin did drop following rehydration however she did not require transfusion Discharge Diet: No Restrictions Home Medications: Medications to take at Discharge Ondansetron [Zofran Odt] 4 mg PO Q8H PRN PRN #10 tablet 10/04/17 Potassium Chloride [K-Dur] 40 meq PO BID #20 tablet 10/04/17 Ciprofloxacin [Cipro] 500 mg PO BID #14 tab 10/07/17 Following Prescrptions Were Given to Patient: Ciprofloxacin [Cipro] 500 mg PO BID #14 tab Primary Care Physician: Barrno Schmitz DO [Primary Care Provider] - Please follow up with your Primary Care Physician in: in 5-7 days Disposition: Home Minutes spent on discharge:: 35 Patient Condition:: Stable Medical Necessity - Tobacco Use Smoking Status: Current every day smoker Meaningful Use Info Meaningful Use Diagnoses (Choose all that apply): None applicable Code Visit Inpatient E&M: 74199 Disch Hosp
--- NOTE | 2017-10-07 10:20 | CASEMGMT ---
RN CM attempted RN CM Face to Face assessment. Patient has discharged from hospital and unable to complete assessment.
--- NOTE | 2017-10-08 15:49 | CASEMGMT ---
EMILIA CM Discharge Follow-up Phone Call: PADMAJA: Leighann Strata: Call Date: Discharge Date: Time of Call: Duration: Admitting Diagnosis:
--- NOTE | 2017-10-08 15:52 | CASEMGMT ---
EMILIA PEREZ Discharge Follow-up Phone Call: PADMAJA: Leighann Strata: 4 Call Date: 10/08/17 Discharge Date: 10/07/17 Time of Call: [id number] Duration: 1 min Admitting Diagnosis: Pyelonephritis EMILIA PEREZ attempted to completed follow-up phone call after recent hospitalization. Patient answered call and was disconnected. EMILIA PEREZ called back and patient yelled that she was busy right now and hung up the phone. Unable to leave return call back information.
== END 2017-10-07 09:00 | disposition home or self-care (01) | DRG 321 ==
LOC: ED 20:31 → MS3 21:23
PROVIDERS: Admitting Provider Internal Medicine; Emergency Provider Emergency Medicine; Family Provider Student in an Organized Health Care Education/Training Program; PCP Student in an Organized Health Care Education/Training Program; Visit Provider Internal Medicine
DX: N10 Acute pyelonephritis (principal); N13.6 Pyonephrosis; D64.9 Anemia, unspecified; E87.6 Hypokalemia; B96.20 Unspecified Escherichia coli [E. coli] as the cause of diseases classified elsewhere; F17.200 Nicotine dependence, unspecified, uncomplicated; Z87.440 Personal history of urinary (tract) infections; Z87.442 Personal history of urinary calculi
CPT/HCPCS: 36415; 74176; 76770; 80048; 81001; 83036; 83605; 84703; 85025; 85652; 87077; 87086; 87088; 87186; 96361; 96365; 96374; 96375; 96376; 99284; 99285; J7030; A4216; J2405

== ENCOUNTER 2017-11-29 23:43 | Emergency (ER) | payer MEDICAID, SELFPAY ==
[2017-11-29 23:43] VITALS: BP 130/77; PULSE 86; RESP 16; TEMP 36.4; O2SAT 100; BMI 21.4
--- NOTE | 2017-11-30 00:47 | ED.DEP ---
ED Disposition - Plan for ED Patient: Chief Complaint: Abscess Instructions: ED Bartholins Cyst No Infec Referrals: Barron Schmitz DO [Primary Care Provider] - Zeny Parada MD [STAFF PHYSICIAN] -
--- NOTE | 2017-11-30 00:49 | ED.RN ---
DR RUIZ OFFERED THIS PATIENT PROPOFOL TO I&D HER ABSCESS AND THE PATIENT REFUSED, DR RUIZ THEN OFFERED THE PATIENT DILAUDID TO HELP WITH HER PAIN FOR THE I&D, THE PATIENT REFUSED BECAUSE SHE STATED SHE DID NOT WANT ANYTHING DONE WITHOUT HER BOYFRIEND THERE SO THE PROCEDURE WAS NOT DONE
[2017-11-30 00:54] VITALS: PULSE 78; RESP 16; O2SAT 98
--- NOTE | 2017-11-30 00:56 | ED.VISSUMM ---
- ER Visit Summary Date of Service: 11/30/17 Chief Complaint: Abscess History of Present Illness: The patient is a 27 F presenting with abscess in the genital area. She states this started yesterday. She states it drained quite a bit today. She been taking Tylenol, ibuprofen, Aleve. She denies fever. Denies other complaints. Physical Examination: Vitals are stable. Patient is afebrile. Alert no acute distress. HEENT exam is unremarkable. Lungs are clear and equal bilaterally. Heart is regular rate and rhythm. Abdomen is soft nontender nondistended. : right bartholin cyst, tenderness to palpation, mild drainage Extremities are unremarkable. Skin is warm and dry. Remainder of exam is unremarkable. Emergency Department Course and Treatment: Patient was initially offered IV pain medication and then IM pain medication and declined. She was offered sedation for I&D. She declines and prefers to have this procedure performed when she has family support with her. She states the area has decreased in size quite a bit from yesterday. She will follow-up with Dr. Parada. She is advised to return to ED if symptoms worsen. Disposition: Discharged home Impression: Bartholin's cyst, draining This note was generated with [employer] dictation software. It may contain incorrect words, spelling, and punctuation that were not noted in review of the chart prior to signing ED Disposition - Plan for ED Patient: Disposition: Home or Assisted Living Chief Complaint: Abscess Instructions: ED Bartholins Cyst No Infec Referrals: Barron Schmitz DO [Primary Care Provider] - Zeny Parada MD [STAFF PHYSICIAN] -
== END 2017-11-30 00:59 | disposition home or self-care (01) ==
LOC: ED 11-30 00:17
PROVIDERS: Emergency Provider Emergency Medicine; Family Provider Student in an Organized Health Care Education/Training Program; PCP Student in an Organized Health Care Education/Training Program
DX: N75.0 Cyst of Bartholin's gland (principal); Z72.0 Tobacco use
CPT/HCPCS: 99282; A4216; J2405

== ENCOUNTER 2017-12-03 10:10 | Emergency (ER) | payer MEDICAID, SELFPAY ==
[2017-12-03 10:11] VITALS: BP 113/73; PULSE 95; RESP 16; TEMP 37.1; O2SAT 99; BMI 21.7
[2017-12-03] MEDS: 0.9% Normal Saline 1,000 ML 1000 ML IV (11:06)
[2017-12-03] MEDS: Ondansetron 4 MG/2 ML Vial IV (11:07)
[2017-12-03 11:13] LABS: Absolute Lymphocyte Count 2.29 X10^3/ul (0.83-4.51); Absolute Neutrophil Count 4.2 X10^3/uL (2.0-7.7); Basophil# 0.04 X10^3/uL; Basophil% 0.6 % (0-1); Eosinophil# 0.28 X10^3/uL; Eosinophils% 3.9 % (0-5); Hematocrit 32.3 % (37-47); Hemoglobin 10.1 g/dl (12.0-15.0); Lymphocyte # 2.29 X10^3/ul (4.0); Lymphocyte % 31.9 % (19-41); Mean Corp Hgb Conc 31.3 g/gl (32-36); Mean Corpuscular Hgb 28.9 pg (27.0-32.0); Mean Corpuscular Volume 92.3 fL (81-99); Mean Platelet Vol. 9.1 fl (6.2-12.0); Monocyte# 0.32 X10^3/uL; Monocyte% 4.5 % (0-10); Neutrophil # 4.24 X10^3/uL (2.7-7.7); Neutrophil % 59.1 % (47-70); POSITIVE COUNT NO; POSITIVE DIFFERENTIAL NO; POSITIVE MORPHOLOGY NO; Platelet Count 449 K/mm3 (150-450); RBC Distribution Width CV 13.7 % (11.6-14.6); RBC Distribution Width SD 45.6 fl (35.1-43.9); White Blood Count 7.2 K/mm3 (4.4-11.0)
[2017-12-03 11:16] LABS: Color, Urine Yellow (Yellow); Glucose, Dipstick Normal (Normal); Ketone-Dipstick Negative (Negative); Leukocyte Esterase-Dipstick 100 /ul (Negative); Nitrite-Dipstick Negative (Negative); Occult Blood-Urine 150 /ul (Negative); Protein-Dipstick 30 mg/dl (Negative); Urine Bilirubin Dipstick Negative (Negative); Urine Clarity Sl. Cloudy (Clear); Urine Urobilinogen 1 mg/dl (Normal)
[2017-12-03 11:16] LABS: Anion Gap 12 (5-15); BUN 20 mg/dL (7-18); BUN/Creat Ratio 26.5 RATIO (10-20); Chloride 103 mmol/L (98-107); Creatinine, Serum 0.76 mg/dL (0.55-1.02); EST Glomerular Filtration Rate 96 mL/min (>60); Est Glom Filt Rate - Afr Amer 117 mL/min (>60); Estimated Creatinine Clearance 91.16 ml/min; Glucose 83 mg/dL (74-106); Potassium 3.2 mmol/L (3.5-5.1); Sodium Level 141 mmol/L (136-145)
[2017-12-03 11:29] LABS: Pregnancy, Serum, hCG Quali. NEGATIVE Negative (0-9 Nonpreg)
[2017-12-03 11:30] LABS: Bacteria RARE /hpf (None Seen); Mucous, Urine RARE /hpf (<or=2+); Red Blood Cells-Urine 0-5 SEEN /hpf (0-5); Squamous Epithelial Cells - UA 0-5 SEEN /hpf (5-10); White Blood Cells 0-5 SEEN /hpf (0-5)
[2017-12-03] MEDS: Morphine 4 MG/ML Syringe IV (12:14)
--- NOTE | 2017-12-03 13:45 | ED.DCSUM_ITS ---
- ER Visit Summary Date of Service: 12/03/17 Chief Complaint: Possible UTI History of Present Illness: The patient is a 27 F history of prior kidney stones and UTIs. States she is having dysuria and right flank pain. States she has had some fever and chills. Mild nausea. States this is been going on for the last 1-2 days. Physical Examination: Male no acute distress. Vital signs stable afebrile. Does not look septic or toxic. H EENT exam unremarkable. Moist wheeze membranes. Neck nontender. Lungs clear to auscultation bilaterally. Heart regular rhythm no murmur. Abdomen soft nondistended normal bowel sounds no peritoneal signs. Both the right upper right lower quadrant unremarkable. Normal no hernias no masses. Back exam nontender. She is moving all 4 extremities. Neurovascular intact. Skin no signs of infection. No rashes. Multiple tattoos. Test Results: White count is 7. Hemoglobin is 10 previously her hemoglobin was 8 she runs a chronic anemia. Electrolytes unremarkable potassium 3.2. Normal BUN, creatinine and gap. UA is normal. No white cells. No nitrites. Serum test is negative. Emergency Department Course and Treatment: Patient was treated with IV fluids, Zofran and morphine. On repeat exam she is resting comfortably. I went over all test results with her. Treatment Plan: Discharged home. Follow-up with her primary care physician Dr. Schmitz. Disposition: Discharge Impression: Flank pain of uncertain etiology This note was generated with [employer] dictation software. It may contain incorrect words, spelling, and punctuation that were not noted in review of the chart prior to signing ED Disposition - Plan for ED Patient: Chief Complaint: Complaint Referrals: Barron Schmitz DO [Primary Care Provider] -
--- NOTE | 2017-12-03 13:45 | ED.DEP ---
ED Disposition - Plan for ED Patient: Disposition: Home or Assisted Living Chief Complaint: Complaint Instructions: ED Abdominal Pain Unkn Cause Referrals: Barron Schmitz DO [Primary Care Provider] - 3-5 Days Additional Instructions: Fluids and rest. Call follow-up your primary care physician. Your labs today were unremarkable. Your urine showed no signs of infection
== END 2017-12-03 14:02 | disposition home or self-care (01) ==
PROVIDERS: Emergency Provider Emergency Medicine; Family Provider Student in an Organized Health Care Education/Training Program; PCP Student in an Organized Health Care Education/Training Program
DX: R30.0 Dysuria (principal); R10.9 Unspecified abdominal pain; Z87.442 Personal history of urinary calculi; Z72.0 Tobacco use; D64.9 Anemia, unspecified
CPT/HCPCS: 80048; 81001; 84703; 85025; 96361; 96374; 96375; 99285; J7030; A4216; J2405

== ENCOUNTER 2018-01-29 18:51 | Emergency (ER) | payer MEDICAID, SELFPAY ==
[2018-01-29 18:53] VITALS: BP 112/61; PULSE 89; RESP 16; TEMP 36.7; O2SAT 98; BMI 22.9
[2018-01-29 19:58] LABS: Mucous, Urine 0 SEEN /hpf (<or=2+)
[2018-01-29 20:01] LABS: Absolute Lymphocyte Count 1.46 X10^3/ul (0.83-4.51); Absolute Neutrophil Count 10.1 X10^3/uL (2.0-7.7); Basophil# 0.03 X10^3/uL; Basophil% 0.2 % (0-1); Eosinophil# 0.11 X10^3/uL; Eosinophils% 0.9 % (0-5); Hematocrit 32.8 % (37-47); Hemoglobin 10.7 g/dl (12.0-15.0); Lymphocyte # 1.46 X10^3/ul (4.0); Lymphocyte % 11.3 % (19-41); Mean Corp Hgb Conc 32.6 g/gl (32-36); Mean Corpuscular Hgb 30.6 pg (27.0-32.0); Mean Corpuscular Volume 93.7 fL (81-99); Mean Platelet Vol. 9.9 fl (6.2-12.0); Monocyte# 1.21 X10^3/uL; Monocyte% 9.4 % (0-10); Neutrophil # 10.05 X10^3/uL (2.7-7.7); Platelet Count 242 K/mm3 (150-450); RBC Distribution Width CV 14.2 % (11.6-14.6); RBC Distribution Width SD 46.8 fl (35.1-43.9); White Blood Count 12.9 K/mm3 (4.4-11.0)
[2018-01-29 20:05] LABS: POSITIVE COUNT NO; POSITIVE DIFFERENTIAL NO; POSITIVE MORPHOLOGY NO
[2018-01-29 20:06] LABS: Glucose, Dipstick Normal (Normal); Ketone-Dipstick Negative (Negative); Leukocyte Esterase-Dipstick 100 /ul (Negative); Nitrite-Dipstick Negative (Negative); Occult Blood-Urine 10 /ul (Negative); Protein-Dipstick 15 mg/dl (Negative); Specific Gravity, Urine 1.005 (1.002-1.030); Urine Bilirubin Dipstick Negative (Negative); Urine Urobilinogen Normal (Normal)
[2018-01-29 20:07] LABS: Color, Urine Straw (Yellow); Urine Clarity Sl Cldy (Clear)
[2018-01-29 20:30] LABS: Anion Gap 9 (5-15); BUN 6 mg/dL (7-18); BUN/Creat Ratio 9.4 RATIO (10-20); Calcium,Total 8.3 mg/dL (8.5-10.1); Chloride 100 mmol/L (98-107); Creatinine, Serum 0.64 mg/dL (0.55-1.02); EST Glomerular Filtration Rate 117 mL/min (>60); Est Glom Filt Rate - Afr Amer 142 mL/min (>60); Estimated Creatinine Clearance 113.01 ml/min; Glucose 95 mg/dL (74-106); Potassium 2.6 mmol/L (3.5-5.1); Pregnancy, Serum, hCG Quali. NEGATIVE Negative (0-9 Nonpreg); Sodium Level 134 mmol/L (136-145)
[2018-01-29 20:44] LABS: White Blood Cells 10-25 SEEN /hpf (0-5)
[2018-01-29 20:45] LABS: Bacteria 1+ /hpf (None Seen); Red Blood Cells-Urine 0-5 SEEN /hpf (0-5); Squamous Epithelial Cells - UA 5-10 SEEN /hpf (5-10)
--- NOTE | 2018-01-29 21:17 | ED.DCSUM_ITS ---
- ER Visit Summary Date of Service: 01/29/18 Chief Complaint: I have another UTI History of Present Illness: The patient is a 27 F with history of kidney stones and urinary tract infection presents with pain right lower back. She complains of dysuria, frequency and question hematuria. She reports onset several hours prior to presentation. She reports fever to 101.0 ?F. She states she took liquid Tylenol. She denies nausea, vomiting or diarrhea. She denies headache, photophobia, neck pain or neck stiffness. She denies URI symptoms. She denies chest pain or respiratory symptoms. She denies history of trauma. She denies skin lesions. Please read written note for complete detail Physical Examination: Vital signs noted and unremarkable. She is afebrile. Head is atraumatic normocephalic. Pupils are equal round reactive. Extraocular muscles are intact. TMs are pearly white with landmarks noted. Nares patent with no drainage. Posterior pharynx without erythema or exudate. Uvula is midline. There is no dysphonia or dysphasia. Trachea is midline. There is no stridor with auscultation of the neck. Heart is regular without murmur, gallop or rub. S1 and S2 are normal. Lungs are clear to auscultation with good movement of air bilaterally. Patient has pain out of palpation suprapubic area and right lower back. This is to light touch. There are no rash or skin lesions noted. Lower extremity exam is unremarkable. Neuro exam is nonfocal. Test Results: White count is elevated 12.9 with 70 segs no bands. Basic medical panel is marked for potassium of 2.6. Urine reveals leukoesterase, blood with pyuria and bacteria. Emergency Department Course and Treatment: CBC, BMP and UA were obtained to evaluate patient's symptoms. Since patient appears to have a urinary tract infection she was treated with Macrobid and Azo. She received 50 mEq of potassium for her hypokalemia. Treatment Plan: Prescription for Macrobid, Pyridium and potassium Disposition: Follow-up with PCP in 3-5 days for repeat exam and blood work Impression: 1. Urinary tract infection 2. Hypokalemia 3. Anemia nonspecified This note was generated with Robert Applebaum MDation software. It may contain incorrect words, spelling, and punctuation that were not noted in review of the chart prior to signing ED Disposition - Plan for ED Patient: Disposition: Home or Assisted Living Chief Complaint: Flank Pain Instructions: ED UTI Cystitis Female, ED Potassium Deficiency, ED Diet High Potassium Prescriptions: Nitrofurantoin Macrocrystals [Macrobid] 100 mg PO Q12 #14 capsule Potassium Bicarbonate/Cit AC [Potassium 25 Meq Tablet Eff] 50 meq PO DAILY #14 tablet.eff Phenazopyridine HCl [Pyridium] 200 mg PO TID #10 tablet Referrals: Barron Schmitz DO [Primary Care Provider] - 3-5 Days Additional Instructions: You need a repeat potassium and 3-5 days. Take medication as prescribed until gone. Your prescriptions were electronically transmitted to pharmacy of choice.
--- NOTE | 2018-01-29 21:34 | ED.RN ---
LAB CALLED WITH CRITICAL LAB RESULTS. POTASSIUM LEVEL 2.6. DR. HOAWRD MADE AWARE. NO NEW ORDERS AT THIS TIME
[2018-01-29] MEDS: Nitrofurantoin Macrocrystals 100 MG Capsule PO (21:46)
[2018-01-29] MEDS: Phenazopyridine 95 MG Tablet 190 MG PO (21:46)
[2018-01-29 21:47] VITALS: BP 110/58; PULSE 74; PULSE 79; RESP 17; RESP 18; O2SAT 98
== END 2018-01-29 21:52 | disposition home or self-care (01) ==
PROVIDERS: Emergency Provider Emergency Medicine; Family Provider Student in an Organized Health Care Education/Training Program; PCP Student in an Organized Health Care Education/Training Program
DX: N39.0 Urinary tract infection, site not specified (principal); E87.6 Hypokalemia; D64.9 Anemia, unspecified; Z87.442 Personal history of urinary calculi; Z72.0 Tobacco use
CPT/HCPCS: 80048; 81001; 84703; 85025; 99285; A4216

== ENCOUNTER 2018-06-29 06:21 | Emergency (ER) | payer MEDICAID, SELFPAY ==
[2018-06-29 06:21] VITALS: BP 147/81; PULSE 110; RESP 18; TEMP 36.8; O2SAT 100; BMI 27.1
[2018-06-29 06:25] VITALS: BP 147/81; PULSE 110; RESP 18; TEMP 36.8; O2SAT 100
--- NOTE | 2018-06-29 06:37 | ED.VISSUMM ---
- ER Visit Summary Date of Service: 06/29/18 Chief Complaint: Redness of the left foot History of Present Illness: The patient is a 28 F history of anemia, depression and prior heroin abuse. States she has been clean for about 4 months. Patient states since yesterday the top of her left foot has been red now painful. No fever. Denies any trauma. She denies any IV drug injections and top of her foot. Physical Examination: Well-appearing young female. Vital signs are stable afebrile. No distress. H EENT exam unremarkable. Neck nontender. Lungs clear to auscultation bilaterally. Heart regular rhythm no murmur. Abdomen soft and nontender. Patient is moving all 4 extremities. Neurovascular intact. The top of her left foot there is an area approximately 3 inches x 4 inches of redness, warmth and tenderness consistent with cellulitis. No abscess. No signs of local allergic reaction. Positive DP pulse. Foot is neurovascularly intact. There is no lymphangitic streaking. Calves are nontender without edema. There is no inguinal lymphadenopathy or tenderness. Test Results: None Emergency Department Course and Treatment: Top of the patient's foot is consistent with cellulitis. She will be started on both Bactrim and Keflex and first dose given in the ER. She is on gabapentin but is currently out of that does not see her doctor till the end of this week and asked me to write her another prescription for some gabapentin. Treatment Plan: Keflex 504 times a day for 1 week. Bactrim 1 twice daily for 1 week. Tylenol Motrin for pain. Follow-up if not improving or getting worse return. Disposition: Discharge Impression: Left foot cellulitis This note was generated with [employer] dictation software. It may contain incorrect words, spelling, and punctuation that were not noted in review of the chart prior to signing ED Disposition - Plan for ED Patient: Referrals: NOT,DEFINED [Primary Care Provider] -
--- NOTE | 2018-06-29 06:40 | ED.DCSUM_ITS ---
- ER Visit Summary Date of Service: 06/29/18 Chief Complaint: Redness of the left foot History of Present Illness: The patient is a 28 F history of anemia, depression and prior heroin abuse. States she has been clean for about 4 months. Patient states since yesterday the top of her left foot has been red now painful. No fever. Denies any trauma. She denies any IV drug injections and top of her foot. Physical Examination: Well-appearing young female. Vital signs are stable afe brile. No distress. H EENT exam unremarkable. Neck nontender. Lungs clear to auscultation bilaterally. Heart regular rhythm no murmur. Abdomen soft and nontender. Patient is moving all 4 extremities. Neurovascular intact. The top of her left foot there is an area approximately 3 inches x 4 inches of redness, warmth and tenderness consistent with cellulitis. No abscess. No signs of local allergic reaction. Positive DP pulse. Foot is neurovascularly intact. There is no lymphangitic streaking. Calves are nontender without edema. There is no inguinal lymphadenopathy or tenderness. Test Results: None Emergency Department Course and Treatment: Top of the patient's foot is consistent with cellulitis. She will be started on both Bactrim and Keflex and first dose given in the ER. She is on gabapentin but is currently out of that does not see her doctor till the end of this week and asked me to write her another prescription for some gabapentin. Treatment Plan: Keflex 504 times a day for 1 week. Bactrim 1 twice daily for 1 week. Tylenol Motrin for pain. Follow-up if not improving or getting worse return. Disposition: Discharge Impression: Left foot cellulitis This note was generated with [employer] dictation software. It may contain incorrect words, spelling, and punctuation that were not noted in review of the chart prior to signing ED Disposition - Plan for ED Patient: Referrals: NOT,DEFINED [Primary Care Provider] -
--- NOTE | 2018-06-29 06:40 | ED.DEP ---
ED Disposition - Plan for ED Patient: Disposition: Home or Assisted Living Instructions: ED Staph Infec Abx Tx Only Prescriptions: Cephalexin [Keflex] 500 mg PO Q6 #30 cap Gabapentin 600 mg PO Q8 #20 tab Smz/Tmp Ds [Bactrim Ds] 1 tab PO BID #20 tab Referrals: Vanessa Oleary [NON-STAFF] - 1 Week if not improving Additional Instructions: Keflex and Bactrim as antibiotics to be finished. Motrin Tylenol for pain. Follow-up with not improving or return to ER if worse.
[2018-06-29] MEDS: Cephalexin 250 MG Capsule 500 MG PO (06:51)
[2018-06-29] MEDS: Smz/Tmp Ds Tablet 1 TABLET PO (06:51)
== END 2018-06-29 06:55 | disposition home or self-care (01) ==
LOC: ED 06:47
PROVIDERS: Emergency Provider Emergency Medicine
DX: L03.116 Cellulitis of left lower limb (principal); F32.9 Major depressive disorder, single episode, unspecified; F11.11 Opioid abuse, in remission; Z72.0 Tobacco use
CPT/HCPCS: 99283

== ENCOUNTER 2019-01-21 10:36 | Emergency (ER) | payer MEDICAID, SELFPAY ==
[2019-01-21 10:40] VITALS: BP 81/51; PULSE 91; RESP 17; TEMP 36.4; O2SAT 100; BMI 26.7
--- NOTE | 2019-01-21 10:51 | ED.VISSUMM ---
- ER Visit Summary Date of Service: 01/21/19 Chief Complaint: Right flank pain History of Present Illness: The patient is a 28 F who presents with right flank pain that is been getting worse over the past week. Patient states the pain became more severe since last night. Patient describes the pain as sharp and dull. Patient states pain is over the right flank area. Patient states nothing makes the pain better or worse. Patient denies any nausea or vomiting. Patient does admit to some dysuria and hematuria. Patient also admits to a fever of 102 at home. Patient denies any chest pain or shortness of breath. Physical Examination: Vital signs are stable except for a blood pressure of 81/51. Patient is afebrile. Patient is in no acute distress. Oral mucosa is pink and moist. Neck is supple. Trachea is midline. There is no JVD noted. Heart was regular rate and rhythm. Lungs are clear and equal bilaterally. Abdomen is soft. Bowel sounds are normal. There is right CVA tenderness. There is no rebound or guarding noted. Cranial nerves II through XII are intact. There are no focal motor or sensory deficits noted. Test Results: Urinalysis shows evidence of urinary tract infection. Urine culture was ordered. CBC and metabolic profile were ordered however the patient refused after unsuccessful lab draw attempts. Patient also refused CT scan. Emergency Department Course and Treatment: Patient was given IV fluids here. Patient was given Zofran for her nausea. Patient was given Tylenol for her pain. Patient has a history of heroin and methamphetamine abuse. Patient is allergic to Toradol. Therefore, Tylenol is the only thing safe for her to take for pain. Patient does not want to wait for any further testing or CT scan. Patient states she just wants to go. Patient was given a prescription for Bactrim. Patient was instructed to follow-up with her primary care physician in 5 to 7 days. Patient was instructed to return if worse in any way. Patient understood and was agreeable with the plan. All questions were answered. Disposition: Discharge home Impression: 1. Urinary tract infection 2. Right flank pain This note was generated with [employer] Software[employer] software. It may contain incorrect words, spelling, and punctuation that were not noted in review of the chart prior to signing ED Disposition - Plan for ED Patient: Disposition: Home or Assisted Living Diagnosis: Urinary tract infection, Right flank pain Instructions: PYELONEPHRITIS, Female (Adult) Prescriptions: Smz/Tmp Ds [Bactrim Ds] 1 tab PO BID #14 tab Prescription Printed Referrals: Care Physician,No Primary [Primary Care Provider] -
[2019-01-21] MEDS: 0.9% Normal Saline 1,000 ML 1000 ML IV (11:16)
[2019-01-21 11:25] LABS: Color, Urine Yellow (Yellow); Glucose, Dipstick Normal (Normal); Ketone-Dipstick 5 mg/dl (Negative); Leukocyte Esterase-Dipstick 500 /ul (Negative); Nitrite-Dipstick Negative (Negative); Occult Blood-Urine 50 /ul (Negative); Protein-Dipstick 100 mg/dl (Negative); Specific Gravity, Urine 1.015 (1.002-1.030); Urine Bilirubin Dipstick 1 mg/dL (Negative); Urine Clarity Sl. Cloudy (Clear); Urine Urobilinogen 1 mg/dl (Normal)
[2019-01-21 11:36] LABS: Bacteria 2+ /hpf (None Seen); Mucous, Urine 1+ /hpf (<or=2+); Red Blood Cells-Urine 0-5 SEEN /hpf (0-5); Squamous Epithelial Cells - UA 0-5 SEEN /hpf (5-10); White Blood Cells 25-50 SEEN /hpf (0-5)
[2019-01-21] MEDS: Ondansetron 4 MG/2 ML Vial IV (11:41)
[2019-01-21] MEDS: Acetaminophen 500 MG Tablet 1000 MG PO (11:55)
== END 2019-01-21 12:26 | disposition left against medical advice (07) ==
PROVIDERS: Emergency Provider Emergency Medicine
DX: N39.0 Urinary tract infection, site not specified (principal); F15.10 Other stimulant abuse, uncomplicated; F14.10 Cocaine abuse, uncomplicated; Z72.0 Tobacco use
CPT/HCPCS: 81001; 87077; 87086; 87088; 87186; 96361; 96365; 96375; 99284; J7030; A4216; J2405

== ENCOUNTER 2019-06-13 07:48 | Emergency (ER) | payer MEDICAID, SELFPAY ==
[2019-06-13 07:49] VITALS: BP 124/78; PULSE 109; RESP 18; TEMP 36.8; O2SAT 99; BMI 32.3
--- NOTE | 2019-06-13 08:11 | ED.VIS.GEN ---
History of Present Illness Chief Complaint: Flank Pain Informant: Patient Onset: Days Narrative: coronavirus national emergency no exposures Complains of right flank pain had chronically worsening symptoms her last 4 days was seen at her drug rehab facility home where she is staying for methamphetamine abuse rehab where an outpatient ultrasound was done of her kidney she is to follow-up with specialist in the [facility] area in the next few days the pain persisted she reportedly was walking home from her boyfriend's house she was seen by paramedics and brought to the hospital she is had no nausea or vomiting she is been having bowel bladder habits denies being as she indicates she cannot get , she reports prior history for pyelonephritis she denies any other history She indicates she did snort methamphetamine a few days ago after failing to IV inject the methamphetamine she indicates she does not have a history of IV injection drug abuse Past Medical History - Allergies and Home Meds Allergies/Adverse Reactions: Allergies ketorolac tromethamine [From Toradol] Allergy (Verified 06/13/19 07:54) Hives latex Allergy (Verified 06/13/19 07:54) Rash morphine [From Duramorph (PF)] Allergy (Verified 06/13/19 07:54) Hives Primary Care Physician: Care Physician,No Primary [NON-STAFF] - Past Medical History: - - Flank pain and reported pyelonephritis and methamphetamine abuse Surgical History: no surgical history Smoking Status: Current every day smoker - Family History Maternal Family History: Reports: No pertinent history Review of Systems General: Denies: Chills, Fever, Sweats Eyes: Denies: Visual changes - bilaterally, Diplopia ENT: Denies: Rhinorrhea, Sore throat Cardiovascular: Denies: Chest pain, Palpitations Respiratory: Denies: Dyspnea, Cough, Dyspnea on exertion Gastrointestinal: Denies: Abdominal pain, Nausea, Vomiting, Diarrhea, Melena, Hematochezia Genitourinary: Denies: Dysuria, Hematuria, Frequency Musculoskeletal: Reports: Back pain. Denies: Extremity Pain Skin: Denies: Rash, Wounds Neurological: Denies: Headache, Weakness, Numbness Physical Exam Vital Signs/Narrative: Vital Signs Temp Pulse Resp BP Pulse Ox 06/13/19 07:49 98.3 F 109 H 18 124/78 H 99 General: Well nourished, Well developed, No Acute Distress Head: Normocephalic, Atraumatic Eyes: Perrl, EOMI ENT: Moist mucous membranes, No rhinorrhea Neck: Supple, Nontender Cardiovascular: Regular rate, Regular rhythm, No murmurs Respiratory: No distress, CTA bilaterally, Chest nontender Abdomen: Soft, Nontender, Nondistended, Normal bowel sounds Back: Nontender, Normal Inspection, CVA tenderness Extremities: Nontender, No edema Skin: Normal color, No rash Neurological: Alert, Oriented x3, Cranial nerves II-XII grossly intact, Normal Strength, Normal Sensation Psychological: Normal affect, Normal Mood Diagnostic/Tx/Re-eval - Medical Decision Making Patient's vital signs are unremarkable she is a very vague right flank pain that she has had chronically reports some type of exacerbation that occurred over the last few days, she is not followed up with the outpatient providers she is had no trauma nausea or vomiting no fever no exposures to coronavirus she has multiple allergies listed, she has history of drug abuse, she is able to take oral nonsteroidals at home for this type of pain despite allergy to Toradol without complications ED screening evaluation underway We are under coronavirus national emergency protocol that limits visitors, the patient was upset she cannot had is a visitor and per staff simply got up and walked out of the emergency department Disposition left the emergency department as above Impression final acute recurrent right flank pain out of the emergency department ED Disposition - Plan for ED Patient: Diagnosis: Flank pain Instructions: FLANK PAIN, Uncertain Cause Referrals: Care Physician,No Primary [NON-STAFF] -
[2019-06-13 08:39] LABS: Mucous, Urine 0 SEEN /hpf (<or=2+)
[2019-06-13 08:42] LABS: Glucose, Dipstick Normal (Normal); Nitrite-Dipstick Negative (Negative); Occult Blood-Urine 250 /ul (Negative); Specific Gravity, Urine 1.025 (1.002-1.030); Urine Bilirubin Dipstick Negative (Negative); Urine Urobilinogen Normal (Normal)
[2019-06-13 08:49] LABS: Color, Urine Amber (Yellow); Leukocyte Esterase-Dipstick 500 /ul (Negative); Protein-Dipstick 100 mg/dl (Negative); Urine Clarity Cloudy (Clear)
[2019-06-13 08:52] LABS: Bacteria 1+ /hpf (None Seen); Ketone-Dipstick 150 mg/dl (Negative); Red Blood Cells-Urine > 100 SEEN /hpf (0-5); Squamous Epithelial Cells - UA 5-10 SEEN /hpf (5-10); White Blood Cells 0-5 SEEN /hpf (0-5)
--- NOTE | 2019-06-13 08:52 | ED.RN ---
went to start pts iv. pt asked if her was here yet. she was advised that there is no visitors at this point. Pt became upset and walked out of the ER. Primary nurse and Dr Kaplanyeed aware
== END 2019-06-13 08:56 | disposition left against medical advice (07) ==
LOC: ED 08:22
PROVIDERS: Emergency Provider Emergency Medicine; PCP Family Medicine
DX: R10.9 Unspecified abdominal pain (principal); F17.200 Nicotine dependence, unspecified, uncomplicated; F15.10 Other stimulant abuse, uncomplicated
CPT/HCPCS: 81001; 99284; J7030; A4216; J2405

== ENCOUNTER 2022-03-23 13:34 | Outpatient (REF) | payer SELFPAY ==
[2022-03-23 13:36] VITALS: BP 114/68; PULSE 94; RESP 16; TEMP 36.4; O2SAT 98; BMI 32.9
[2022-03-23 15:40] VITALS: RESP 18
--- NOTE | 2022-03-23 15:52 | EX.ED.DYSGE1 ---
HPI History of Present Illness Chief Complaint: Foreign Body Narrative Narrative: Patient presents with chief complaint of inability to remove tampon. Patient is currently in the snf. She placed a tampon either last night or this morning. She states she feels like she scraped part of the introitus and so its irritated. No discharge. No fevers. No pain in her abdomen or pelvis. She is eating drinking normally. No blood thinners. [facility] Medical History Kidney disease Home Medications fluoxetine 40 mg capsule 40 mg PO DAILY 06/29/18 [History Last Taken Unknown] gabapentin 600 mg tablet 600 mg PO TID 06/29/18 [History Last Taken Unknown] quetiapine 100 mg tablet 100 mg PO QHS 06/29/18 [History Last Taken Unknown] metoclopramide HCl 5 mg tablet 5 mg PO TID 06/13/19 [History Last Taken Unknown] Allergy/AdvReac Type Severity Reaction Status Date / Time ketorolac tromethamine Allergy Hives Verified 03/23/22 15:20 [From Toradol] latex Allergy Rash Verified 03/23/22 15:20 morphine Allergy Hives Verified 03/23/22 15:20 [From Duramorph (PF)] Social History Smoking Status: Former smoker ROS ROS ED Constitutional Constitutional ED: Denies chills or fever(s) Cardiovascular Cardiovascular: Denies chest pain Respiratory/Chest Respiratory/Chest: Denies cough or dyspnea Gastrointestinal Gastrointestinal: Denies abdominal pain, diarrhea, nausea or vomiting Genitourinary Genitourinary ED: Reports other Details: See history of present illness. ; Denies dysuria, hematuria or urinary frequency Musculoskeletal Musculoskeletal: Denies back pain Integumentary Reports Abrasions; Denies rash Neurologic Neurologic: Denies headache(s) Endocrine Endocrinology: Denies polydipsia or polyuria Hematologic/Lymphatic Hematologic/Lymphatic: Denies easy bleeding Allergic/Immunologic Allergic/Immunologic ED: Denies urticaria EXAM Physical Exam Const Vital Signs: 03/23/22 13:36 03/23/22 15:21 03/23/22 15:40 Temperature 97.5 F L Temperature Source Temporal Pulse Rate 94 Respiratory Rate 16 18 Respiratory Effort Normal Non-Labored Respiratory Pattern Normal Blood Pressure 114/68 Blood Pressure Mean 83 Pulse Ox 98 Oxygen Delivery Method Room Air Room Air Positive well nourished and well developed General Appearance ED: well developed and NAD; Negative for cyanotic or diaphoretic Resp normal respiratory effort Cardio regular rate GI normal to inspection, nondistended, normoactive bowel sounds, non-tender and non-distended Narrative: External genitalia is normal. On the inner surface of the upper left area of the labia minora there is a small area of erythema. This is not ulcerated. Its not vesicular. There is no swelling or mass. This certainly could be an abrasion. At this point there is no indication for acute treatment. But we did talk with the patient to watch this area. She may need follow-up or further treatment if this changes. She states that this just occurred after she placed the tampon. Pelvic exam was done with nurse in the room. No discharge or odor. There is a tampon in place. This was easily removed it was complete. Secondary look showed no sign of infection or discharge internally. No notable tenderness. Back/Spine no CVA tenderness Neuro Sensorium / Orientation: alert Psych mental status grossly normal Skin no rashes or lesions noted Skin Narrative: No erythema or rashes. MDM MDM MDM Narrative Medical decision making narrative: Patient had tampon removed without difficulty. It was only in since either this morning or last night. No sign of infection. Discharge Plan Triage Chief Complaint: Foreign Body ED Provider: Fareed Peacock Dx/Rx/DC Orders Clinical Impression: Retained tampon Instructions: ED FOREIGN BODY Vaginal Adult Prescriptions: No Action fluoxetine 40 MG capsule 40 mg PO DAILY Label Comments: take 1 capsule by mouth once daily gabapentin 600 MG tablet 600 mg PO TID quetiapine 100 MG tablet 100 mg PO QHS Label Comments: take 1 tablet by mouth at bedtime metoclopramide HCl 5 MG tablet 5 mg PO TID Primary Care Provider: Ronak Corral Referrals: Leroy Brown MD [Med Staff - Active Staff] - 1 Week if not improving Ronak Corral MD [Primary Care Provider] - Disposition Disposition: Home, Self Care
[2022-03-23 16:02] VITALS: RESP 18
== END 2022-03-23 16:02 | disposition home or self-care (01) ==
LOC: EDREF 13:34
PROVIDERS: PCP Family Medicine; Visit Provider Emergency Medicine
DX: T19.2XXA Foreign body in vulva and vagina, initial encounter (principal); Z87.891 Personal history of nicotine dependence; X58.XXXA Exposure to other specified factors, initial encounter

== ENCOUNTER 2022-08-26 17:35 | Emergency (ER) | payer MEDICAID, SELFPAY ==
[2022-08-26 17:36] VITALS: BP 148/82; PULSE 79; RESP 16; TEMP 36.6; O2SAT 100; BMI 42.1
--- NOTE | 2022-08-26 18:06 | EDS_ITS ---
HPI HPI - GI History of Present Illness Chief Complaint: Abd Pain Informant: patient Narrative Narrative: Patient is a 32-year-old female with history of hepatitis, depression, anxiety, substance abuse and recent cholecystectomy at [facility] with Dr. Herman on Saturday, 4 days ago presenting with worsening abdominal pain and nausea. Patient states of the day of her surgery and the day after surgery she had she was feeling better however she thinks she might of overdone it the following day. She notes that she had been camping and was crawling into a tent when she tripped and she fell. She landed on her stomach. This was 2 days ago. Patient states yesterday she was taking her prescribed [place] every 4 hours but continued to have pain. She felt like it was not even working. Patient is also on Suboxone. She did try taking some ibuprofen which did seem to make it a little better. Patient is concerned there might be something wrong with her recent surgery/given the fall so she came in for further evaluation. No report of any fevers. Did have a bowel movements. No other complaints at this time. [facility] Medical History Anxiety Depression Hepatitis Kidney disease Marijuana use Smoker Substance abuse Wears glasses Home Medications fluoxetine 40 mg capsule 60 mg PO DAILY 06/29/18 [History Last Taken Unknown] gabapentin 600 mg tablet 600 mg PO TID 06/29/18 [History Last Taken Unknown] quetiapine 100 mg tablet 100 mg PO TID 06/29/18 [History Last Taken Unknown] buprenorphine 8 mg-naloxone 2 mg sublingual film (Suboxone) 1 film buccal BID 07/30/22 [History Last Taken Unknown] docusate sodium 100 mg tablet (Stool Softener) 100 mg PO BID 07/30/22 [History Last Taken Unknown] ibuprofen 600 mg tablet 600 mg PO TID 07/30/22 [History Last Taken Unknown] lamotrigine 150 mg tablet (Lamictal) 150 mg PO DAILY 07/30/22 [History Last Taken Unknown] mirtazapine 30 mg tablet (Remeron) 30 mg PO QHS 07/30/22 [History Last Taken Unknown] polyethylene glycol 3350 17 gram oral powder packet (Miralax) 17 g PO DAILY 07/30/22 [History Last Taken Unknown] Allergy/AdvReac Type Severity Reaction Status Date / Time ketorolac tromethamine Allergy Hives Verified 08/26/22 17:38 [From Toradol] latex Allergy Rash Verified 08/26/22 17:38 morphine Allergy Hives Verified 08/26/22 17:38 [From Duramorph (PF)] Surgical History History of Hx of laparoscopy Social History Smoking Status: Current every day smoker tobacco type: cigarettes ROS ROS ED Constitutional Constitutional ED: Denies chills or fever(s) Respiratory/Chest Respiratory/Chest: Denies cough Gastrointestinal Gastrointestinal: Reports abdominal pain and constipation; Denies melena, nausea or vomiting Musculoskeletal Musculoskeletal: Denies arthralgias or myalgias Integumentary Reports other Details: Abdominal surgical incisions ; Denies rash Neurologic Neurologic: Denies headache(s) or weakness Psychiatric Psychiatric: Denies anxiety Hematologic/Lymphatic Hematologic/Lymphatic: Denies easy bleeding or easy bruising EXAM Physical Exam Const Vital Signs: 08/26/22 17:36 Temperature 98 F Temperature Source Temporal Pulse Rate 79 Respiratory Rate 16 Blood Pressure 148/82 H Blood Pressure Mean 104 Pulse Ox 100 Oxygen Delivery Method Room Air Positive well nourished and well developed General Appearance ED: well developed HEENT Reports moist mucous membranes Eyes PERRL Neck supple Resp normal respiratory effort and clear to auscultation bilaterally Cardio regular rate, regular rhythm and no murmurs GI non-distended GI Narrative: Mild tenderness of the surgical incision site which is expected given her postoperative status. Laparoscopic port sites are closed and appear to be healing appropriately. There is area of ecchymosis around the umbilical site which also appears to be healing appropriately. No pulsatile mass appreciated. No significant pain with deep palpation Palpation: soft; Negative for guarding or rigid Back/Spine no CVA tenderness Extremity full ROM General Extremety ED: Negative for edema General Extremity: Negative for edema Neuro moves all extremities and no sensory deficits noted Sensorium / Orientation: alert Psych mental status grossly normal and thought process normal Skin Skin Narrative: Healing surgical incisions on the abdomen consistent with recent laparoscopic cholecystectomy MDM MDM MDM Narrative Medical decision making narrative: Patient's evaluated for postoperative tati pain after recent cholecystectomy. Vital signs are normal. She was nontoxic in no acute distress. Abdominal exam is pretty benign given her postoperative status. She has healing surgical incisions with expected postoperative ecchymosis. Decision made to check some basic blood work. Patient is given dose of fentanyl as well as Zofran and fluids in the emergency room. Patient has a mild anemia of 11.4 but no leukocytosis. She is not having symptoms consistent with acute blood loss anemia. CMP is remarkable for a mild elevation of her AST and ALT (50/60) respectively. She has normal alkaline phosphatase and normal bilirubin. I spoke with surgery on-call for her surgeon, Dr. Brown, who states that these is normal given her postoperative state. Given that she is not having significant pain on physical exam and otherwise has a normal work-up I do not think she requires repeat CT imaging or ultrasound at this time. Patient is comfortable with this plan of care. Is given return precautions. Discharged home with instructions to call her surgeon in the morning for outpatient follow-up. Patient does have [place] as well as Suboxone to take at home. She also can take [id number] ibuprofen which she has had some success with. Discharged home in stable condition. Lab Data Labs: Laboratory Results - last 24 hr 08/26/22 08/26/22 19:00 19:00 WBC 7.6 RBC 3.75 L Hgb 11.4 L Hct 35.5 L MCV 94.7 MCH 30.4 MCHC 32.1 RDW Std Deviation 45.1 H RDW Coeff of Mirella 13.1 Plt Count 298 MPV 9.4 Immature Gran % (Auto) 0.300 Neut % (Auto) 54.1 Lymph % (Auto) 35.5 [place] % (Auto) 6.0 Eos % (Auto) 3.0 Baso % (Auto) 1.1 H Absolute Neuts (auto) 4.1 Absolute Lymphs (auto) 2.70 Nucleated RBC % 0 Sodium 141 Potassium 3.6 Chloride 109 H Carbon Dioxide 23.0 Anion Gap 9 BUN 11 Creatinine 0.71 Estim Creat Clear Calc 93.23 Est GFR (MDRD) Af Amer 122 Est GFR (MDRD) Non-Af 101 BUN/Creatinine Ratio 15.5 Glucose 98 Calcium 8.6 Total Bilirubin 0.50 Direct Bilirubin 0.10 AST 50 H ALT 60 H Alkaline Phosphatase 77 Total Protein 8.1 Albumin 3.6 Globulin 4.5 H Lipase 26 Discharge Plan Triage Chief Complaint: Abd Pain ED Provider: Indira Jacobo Dx/Rx/DC Orders Clinical Impression: Acute postoperative abdominal pain, Status post laparoscopic cholecystectomy Instructions: ED Post Op Wound Check, Pain Prescriptions: No Action fluoxetine 40 MG capsule 60 mg PO DAILY Label Comments: take 1 capsule by mouth once daily gabapentin 600 MG tablet 600 mg PO TID quetiapine 100 MG tablet 100 mg PO TID Label Comments: take 1 tablet by mouth at bedtime lamotrigine [Lamictal] 150 mg Tablet 150 mg PO DAILY polyethylene glycol 3350 [Miralax] 17 gram Powder In Packet 17 g PO DAILY mirtazapine [Remeron] 30 mg Tablet 30 mg PO QHS docusate sodium [Stool Softener] 100 mg Tablet 100 mg PO BID buprenorphine-naloxone [Suboxone] 8-2 mg Film 1 film BUCCAL BID ibuprofen 600 mg Tablet 600 mg PO TID Primary Care Provider: Ronak Corral Referrals: Ronak Corral MD [Primary Care Provider] - Activity Restrictions/Additional Instructions: You seem to be healing well and the abdominal exam is normal given your postoperative status. Your lab work is largely normal. You have a slight anemia and a very mild elevation of your liver enzymes which is normal given your recent surgery. Please follow-up with your surgeon. Call the office tomorrow morning for further recommendations. You can continue take ibuprofen as well as your other prescribed medications for pain. Ice packs to the abdomen might be helpful as well Disposition Disposition: Home, Self Care
[2022-08-26] MEDS: 0.9% Normal Saline 1,000 ML 125 ML IV (18:44)
[2022-08-26] MEDS: fentaNYL 100 MCG/2 ML Ampul 50 MCG IV (18:45)
[2022-08-26] MEDS: Ondansetron 4 MG/2 ML Vial IV (18:45)
[2022-08-26 19:16] LABS: Absolute Neutrophil Count 4.1 X10^3/uL (2.0-7.7); Basophil# 0.08 X10^3/uL; Basophil% 1.1 % (0-1); Eosinophil# 0.23 X10^3/uL; Hematocrit 35.5 % (37-47); Hemoglobin 11.4 g/dL (12.0-15.0); Lymphocyte % 35.5 % (19-41); Mean Corp Hgb Conc 32.1 g/dL (32-36); Mean Corpuscular Hgb 30.4 pg (27.0-32.0); Mean Corpuscular Volume 94.7 fL (81-99); Mean Platelet Vol. 9.4 fl (6.2-12.0); Monocyte# 0.46 X10^3/uL; NRBC Flagged by Analyzer 0 % (0-5); Neutrophil # 4.12 X10^3/uL (2.7-7.7); Neutrophil % 54.1 % (47-70); Platelet Count 298 K/mm3 (150-450); RBC Distribution Width CV 13.1 % (11.6-14.6); RBC Distribution Width SD 45.1 fl (35.1-43.9); Red Blood Count 3.75 M/mm3 (4.2-5.4); White Blood Count 7.6 K/mm3 (4.4-11.0)
[2022-08-26 19:41] LABS: AST(SGOT) 50 U/L (15-37); Alanine Aminotransfer ALT/SGPT 60 U/L (13-56); Albumin, Serum 3.6 g/dL (3.2-5.0); Alkaline Phosphatase 77 U/L (45-117); Anion Gap 9 (5-15); BUN 11 mg/dL (7-18); BUN/Creat Ratio 15.5 RATIO (10-20); Calcium,Total 8.6 mg/dL (8.5-10.1); Chloride 109 mmol/L (98-107); Creatinine, Serum 0.71 mg/dL (0.55-1.02); EST Glomerular Filtration Rate 101 mL/min (>60); Est Glom Filt Rate - Afr Amer 122 mL/min (>60); Estimated Creatinine Clearance 93.23 ml/min; Globulin 4.5 g/dL (2.2-4.2); Glucose 98 mg/dL (74-106); Lipase 26 U/L (13-75); Potassium 3.6 mmol/L (3.5-5.1); Protein, Total 8.1 g/dL (6.4-8.2); Sodium Level 141 mmol/L (136-145)
== END 2022-08-26 21:34 | disposition home or self-care (01) ==
PROVIDERS: Emergency Provider Emergency Medicine; PCP Family Medicine; Visit Provider Emergency Medicine
DX: Z98.890 Other specified postprocedural states (principal); F17.210 Nicotine dependence, cigarettes, uncomplicated; Z90.49 Acquired absence of other specified parts of digestive tract; F32.A Depression, unspecified; K75.9 Inflammatory liver disease, unspecified; Z79.899 Other long term (current) drug therapy; Z79.891 Long term (current) use of opiate analgesic; W01.10XA Fall on same level from slipping, tripping and stumbling with subsequent striking against unspecified object, initial encounter; Y92.833 Campsite as the place of occurrence of the external cause
CPT/HCPCS: 36415; 80048; 80076; 83690; 85025; 96361; 96374; 96375; 99284; J2405

== ENCOUNTER 2023-07-28 09:59 | Emergency (ER) | payer MEDICAID, SELFPAY ==
[2023-07-28 10:00] VITALS: BP 122/71; PULSE 90; RESP 16; TEMP 35.9; O2SAT 96; BMI 38.9
--- NOTE | 2023-07-28 10:23 | CT_ITS ---
INDICATION: right flank pain EXAMINATION: CT ABDOMEN AND PELVIS WITHOUT CONTRAST - CT Abdomen And Pelvis W/O Contrast Injection TECHNIQUE: Helically acquired images were obtained of the abdomen and pelvis without oral or IV contrast. A radiation dose optimization technique was used for this scan. IV Contrast dosage and agent: None. Oral contrast: None. RADIATION DOSAGE (If Supplied By Facility): CTDIvol = ( 20.27 ) mGy, DLP = ( 1043.17 ) mGycm COMPARISON: No relevant prior comparison study available FINDINGS: LOWER CHEST: Lung bases are clear. No cardiomegaly or pericardial effusion. The lack of intravenous contrast limits evaluation of solid visceral organs. LIVER: There is a focus of low attenuation within segment 4 of the liver adjacent to the falciform ligament suggestive of focal fat. GALLBLADDER AND BILIARY TREE: The gallbladder surgically absent. No intra- or extrahepatic biliary ductal dilation. PANCREAS: No focal cystic or solid mass. SPLEEN: Normal size without focal cystic or solid mass. ADRENAL GLANDS: No nodules. KIDNEYS AND URETERS: Normal renal size and position. No hydronephrosis. There is a nonobstructing 2 mm right renal calculus. There are nonobstructing left renal calculi measuring up to 4 mm. PERITONEUM: No ascites or free air. No other fluid collection. BOWEL: No stomach or bowel distension. No focal inflammatory change. There are surgical clips within the right lower quadrant suggestive of prior appendectomy. LYMPH NODES: No enlarged mesenteric or retroperitoneal lymph nodes. VESSELS: Aorta is non-dilated. There are few peripheral calcifications of the abdominal aorta consistent with atherosclerosis. URINARY BLADDER: Unremarkable. REPRODUCTIVE ORGANS: No pelvic masses. ABDOMINAL WALL: No discrete abdominal or pelvic wall hernia. BONES: No lytic or blastic abnormality. CT/Abdomen/Pelvis without Cont IMPRESSION: No acute intra-abdominal process. Bilateral nonobstructing renal calculi measuring up to 4 mm on the left. Atherosclerosis. Electronically Signed: Tegan Todd MD at 11:27 EDT ,
--- NOTE | 2023-07-28 10:24 | EX.ED.DYSGE1 ---
HPI History of Present Illness Chief Complaint: Flank Pain Informant: patient Onset/Context/Timing Onset: Weeks Context: Gradual Onset Timing: Waxes and wanes Narrative Narrative: Patient presents secondary to right flank pain and dysuria for the past 1 week. She is a history of kidney stones as well as UTIs and pyelonephritis. She had a fever to 101 last evening. No significant cough or congestion. She has had prior salpingectomy. [facility] Medical History Anxiety Depression Hepatitis Kidney disease Marijuana use Smoker Substance abuse Wears glasses Home Medications fluoxetine 40 mg capsule 60 mg PO DAILY 06/29/18 [History Last Taken Unknown] gabapentin 600 mg tablet 600 mg PO TID 06/29/18 [History Last Taken Unknown] quetiapine 100 mg tablet 100 mg PO TID 06/29/18 [History Last Taken Unknown] buprenorphine 8 mg-naloxone 2 mg sublingual film (Suboxone) 1 film buccal BID 07/30/22 [History Last Taken Unknown] docusate sodium 100 mg tablet (Stool Softener) 100 mg PO BID 07/30/22 [History Last Taken Unknown] ibuprofen 600 mg tablet 600 mg PO TID 07/30/22 [History Last Taken Unknown] lamotrigine 150 mg tablet (Lamictal) 150 mg PO DAILY 07/30/22 [History Last Taken Unknown] mirtazapine 30 mg tablet (Remeron) 30 mg PO QHS 07/30/22 [History Last Taken Unknown] polyethylene glycol 3350 17 gram oral powder packet (Miralax) 17 g PO DAILY 07/30/22 [History Last Taken Unknown] potassium chloride 20 mEq tablet,extended release 20 meq PO BID #8 tabs 07/28/23 [Rx Last Taken Unknown] sulfamethoxazole 800 mg-trimethoprim 160 mg tablet (Bactrim DS) 1 tab PO BID #20 tabs 07/28/23 [Rx Last Taken Unknown] Allergy/AdvReac Type Severity Reaction Status Date / Time ketorolac tromethamine Allergy Hives Verified 07/28/23 10:00 [From Toradol] latex Allergy Rash Verified 07/28/23 10:00 morphine Allergy Hives Verified 07/28/23 10:00 [From Duramorph (PF)] Surgical History History of Hx of laparoscopy Social History Smoking Status: Current every day smoker tobacco type: cigarettes ROS ROS ED Constitutional Constitutional ED: Reports fever(s); Denies chills Eyes Eyes: Denies change in vision or discharge from eye(s) ENT ENT ED: Denies discharge from eye(s), rhinorrhea or sore throat Cardiovascular Cardiovascular: Denies chest pain or palpitations Respiratory/Chest Respiratory/Chest: Denies cough or dyspnea Gastrointestinal Gastrointestinal: Reports abdominal pain; Denies diarrhea, nausea or vomiting Genitourinary Genitourinary ED: Reports dysuria Musculoskeletal Musculoskeletal: Reports back pain; Denies extremity pain Integumentary Denies Abrasions or rash Neurologic Neurologic: Denies headache(s) or weakness Psychiatric Psychiatric: Denies anxiety or depression Allergic/Immunologic Allergic/Immunologic ED: Denies lip swelling or urticaria EXAM Physical Exam Const Vital Signs: 07/28/23 10:00 07/28/23 12:00 Temperature 96.7 F L Temperature Source Temporal Pulse Rate 90 81 Respiratory Rate 16 18 Blood Pressure 122/71 H 126/78 H Blood Pressure Mean 88 94 Pulse Ox 96 100 Oxygen Delivery Method Room Air Room Air Positive well nourished and well developed General Appearance ED: well developed HEENT Reports moist mucous membranes Eyes EOMs intact bilaterally Chest Wall inspection of chest normal and palpation of chest normal Resp normal respiratory effort and clear to auscultation bilaterally Cardio regular rate and regular rhythm GI GI Narrative: Abdomen soft with mild diffuse tenderness. No guarding or rebound. No palpable masses. Back/Spine General Back: CVA tenderness right Extremity normal to inspection Neuro oriented x3 and no sensory deficits noted Motor Exam: strength 5/5 throughout Skin no rashes or lesions noted MDM MDM MDM Narrative Medical decision making narrative: IV line established. Patient given morphine and Zofran along with IV fluids. It is noted patient has tolerated IV morphine sulfate previously, but did have an allergic reaction to Duramorph that she was given during her . Labwork obtained to evaluate for leukocytosis, anemia, and electrolyte derangement. Urinalysis obtained to evaluate for infection/hematuria. CT flank obtained to evaluate for potential pyelonephritis versus kidney stone. History & Record Review Discussion w/independent historian: Patient Lab Data Attestation: I reviewed the patient's lab results. Labs: Laboratory Results - last 24 hr 07/28/23 07/28/23 10:40 10:48 WBC 6.3 RBC 3.83 L Hgb 11.7 L Hct 36.1 L MCV 94.3 MCH 30.5 MCHC 32.4 RDW Std Deviation 42.2 RDW Coeff of Mirella 12.2 Plt Count 239 MPV 10.4 Immature Gran % (Auto) 0.200 Neut % (Auto) 42.5 L Lymph % (Auto) 45.2 H [place] % (Auto) 7.8 Eos % (Auto) 2.7 Baso % (Auto) 1.6 H Absolute Neuts (auto) 2.7 Absolute Lymphs (auto) 2.85 Nucleated RBC % 0 Sodium 138 Potassium 2.9 L Chloride 109 H Carbon Dioxide 22.0 Anion Gap 7 BUN 7 Creatinine 0.78 Estim Creat Clear Calc 114.54 Est GFR (MDRD) Af Amer 109 Est GFR (MDRD) Non-Af 90 BUN/Creatinine Ratio 9.0 L Glucose 103 Calcium 8.8 Urine Color Yellow Urine Clarity Sl Cldy Urine pH 6.0 Ur Specific [place] 1.025 Urine Protein 30 H Urine Glucose (UA) Normal Urine Ketones 5 H Urine Occult Blood 10 H Urine Nitrite Negative Urine Bilirubin 1 H Urine Urobilinogen 4 H Ur Leukocyte Esterase 25 H Urine RBC 0 SEEN Urine WBC 5-10 SEEN Ur Squamous Epith Cells 5-10 SEEN Calcium Oxalate Crystal 1+ Urine Bacteria 1+ Urine Mucus 0 SEEN Radiography Diagnostic Testing: Clinical Impression(s) from Imaging Studies Abdomen/Pelvis CT 07/28/23 10:23 IMPRESSION: No acute intra-abdominal process. Bilateral nonobstructing renal calculi measuring up to 4 mm on the left. Atherosclerosis. Electronically Signed: Tegan Todd MD at 11:27 EDT , Treatment and Re-Evaluation :: On repeat examination patient resting comfortably. White count is 6.3 with a hemoglobin 11.7. Normal differential. Chemistry studies unremarkable. Urinalysis reveals 5-10 white cells with 1+ bacteria and 1+ calcium oxalate crystals. 10-25 epithelial cells are noted. CT of the flank reveals nonobstructing renal calculi bilaterally up to 4 mm. No acute intra-abdominal process. Test results discussed with the patient. She may have passed a small stone. Because she does have dysuria and flank pain I will cover her with Bactrim for the next week. Potassium was also low at 2.9 and will be replaced orally. Discharge Plan Triage Chief Complaint: Flank Pain ED Provider: Danisha Ng Dx/Rx/DC Orders Clinical Impression: Pyelonephritis, Hypokalemia Instructions: ED Hypokalemia, ED Pyelonephritis, Female (Adult) Prescriptions: New sulfamethoxazole-trimethoprim [Bactrim DS] 800-160 mg tablet 1 tab PO BID Qty: 20 0RF potassium chloride 20 mEq tablet extended release 20 meq PO BID Qty: 8 0RF No Action fluoxetine 40 MG capsule 60 mg PO DAILY Patient Comments: take 1 capsule by mouth once daily gabapentin 600 MG tablet 600 mg PO TID quetiapine 100 MG tablet 100 mg PO TID Patient Comments: take 1 tablet by mouth at bedtime lamotrigine [Lamictal] 150 mg Tablet 150 mg PO DAILY polyethylene glycol 3350 [Miralax] 17 gram Powder In Packet 17 g PO DAILY mirtazapine [Remeron] 30 mg Tablet 30 mg PO QHS docusate sodium [Stool Softener] 100 mg Tablet 100 mg PO BID buprenorphine-naloxone [Suboxone] 8-2 mg Film 1 film BUCCAL BID ibuprofen 600 mg Tablet 600 mg PO TID Primary Care Provider: Care Physician,No Primary Referrals: Naomie Bronson MD [Med Staff - Active Staff] - As Needed Care Physician,No Primary [Primary Care Provider] - Disposition Disposition: Home, Self Care
[2023-07-28] MEDS: Morphine 4 MG/ML Syringe IV (10:43)
[2023-07-28] MEDS: Ondansetron 4 MG/2 ML Vial IV (10:43)
[2023-07-28] MEDS: 0.9% Normal Saline (1000mL) 1,000 ML 150 ML IV (10:44)
[2023-07-28 10:52] LABS: Mucous, Urine 0 SEEN /hpf (<or=2+); Red Blood Cells-Urine 0 SEEN /hpf (0-5)
[2023-07-28 11:03] LABS: Absolute Lymphocyte Count 2.85 X10^3/uL (0.83-4.51); Absolute Neutrophil Count 2.7 X10^3/uL (2.0-7.7); Basophil% 1.6 % (0-1); Eosinophil# 0.17 X10^3/uL; Eosinophils% 2.7 % (0-5); Hematocrit 36.1 % (37-47); Hemoglobin 11.7 g/dL (12.0-15.0); Lymphocyte # 2.85 X10^3/ul (0.83-4.51); Lymphocyte % 45.2 % (19-41); Mean Corp Hgb Conc 32.4 g/dL (32-36); Mean Corpuscular Hgb 30.5 pg (27.0-32.0); Mean Corpuscular Volume 94.3 fL (81-99); Mean Platelet Vol. 10.4 fl (6.2-12.0); Monocyte# 0.49 X10^3/uL; Monocyte% 7.8 % (0-10); NRBC Flagged by Analyzer 0 % (0-5); Neutrophil # 2.69 X10^3/uL (2.7-7.7); Neutrophil % 42.5 % (47-70); Platelet Count 239 K/mm3 (150-450); RBC Distribution Width CV 12.2 % (11.6-14.6); RBC Distribution Width SD 42.2 fl (35.1-43.9); Red Blood Count 3.83 M/mm3 (4.2-5.4); White Blood Count 6.3 K/mm3 (4.4-11.0)
[2023-07-28 11:04] LABS: Glucose, Dipstick Normal (Normal); Ketone-Dipstick 5 mg/dl (Negative); Leukocyte Esterase-Dipstick 25 /ul (Negative); Nitrite-Dipstick Negative (Negative); Occult Blood-Urine 10 /ul (Negative); Protein-Dipstick 30 mg/dl (Negative); Specific Gravity, Urine 1.025 (1.002-1.030); Urine Urobilinogen 4 mg/dl (Normal)
[2023-07-28 11:07] LABS: Anion Gap 7 (5-15); BUN 7 mg/dL (7-18); Calcium,Total 8.8 mg/dL (8.5-10.1); Chloride 109 mmol/L (98-107); Creatinine, Serum 0.78 mg/dL (0.55-1.02); EST Glomerular Filtration Rate 90 mL/min (>60); Est Glom Filt Rate - Afr Amer 109 mL/min (>60); Estimated Creatinine Clearance 114.54 ml/min; Glucose 103 mg/dL (74-106); Potassium 2.9 mmol/L (3.5-5.1); Sodium Level 138 mmol/L (136-145)
[2023-07-28 11:17] LABS: Bacteria 1+ /hpf (None Seen); Calcium Oxalate Crystals Ur 1+ /hpf (<or=2+); Color, Urine Yellow (Yellow); Squamous Epithelial Cells - UA 5-10 SEEN /hpf (5-10); Urine Bilirubin Dipstick 1 mg/dL (Negative); Urine Clarity Sl Cldy (Clear); White Blood Cells 5-10 SEEN /hpf (0-5)
[2023-07-28 12:00] VITALS: BP 126/78; PULSE 81; RESP 18; O2SAT 100
[2023-07-28] MEDS: Potassium Chloride Oral Tablet 20 MEQ 40 MEQ PO (13:03)
[2023-07-28] MEDS: Smz/Tmp Ds Tablet 1 TABLET PO (13:03)
[2023-07-28 13:07] VITALS: BP 134/78; PULSE 75; RESP 18; TEMP 36.7; O2SAT 100
== END 2023-07-28 13:08 | disposition home or self-care (01) ==
PROVIDERS: Emergency Provider Emergency Medicine; Visit Provider Emergency Medicine
DX: N12 Tubulo-interstitial nephritis, not specified as acute or chronic (principal); E87.6 Hypokalemia; F17.210 Nicotine dependence, cigarettes, uncomplicated
CPT/HCPCS: 74176; 80048; 81001; 85025; 87086; 87088; 96361; 96374; 96375; 99283; J7030; A4216; J2405

== ENCOUNTER 2024-05-15 10:42 | Observation (INO) | payer MEDICAID, SELFPAY ==
[2024-05-15] VITALS (8 sets, daily range): BP systolic 115–132; BP diastolic 70–89; PULSE 68–96; RESP 16–18; TEMP 36.6–37.1; O2SAT 95–99; BMI 34.7; BMI 34.8
--- NOTE | 2024-05-15 11:25 | CT_ITS ---
PROCEDURE: CT SOFT TISSUE NECK WITH CONTRAST REASON FOR EXAM: DENTAL ABSCESS WITH SUBMENTAL INVOLVEMENT. TECHNIQUE: Contiguous axial scans of 2.5 mm slice thicknesses. Sagittal and coronal reconstruction images were obtained. One or more dose reduction techniques were used (e.g., automated exposure control, adjustment of mA and/or kv according to patient size, use of iterative reconstruction technique). CONTRAST: Isovue 370. 75 mL. COMPARISON: None. FINDINGS: Airway: Midline and patent. Salivary glands: Unremarkable. Lymph nodes: Shotty lymph nodes are noted on both sides of the neck. The largest is left submandibular measuring 1.7 x 1.1 cm on axial image 68. Thyroid: Unremarkable. Vasculature: Carotid arteries and internal jugular veins are unremarkable. Orbits: Unremarkable at visualized levels. Paranasal sinuses and mastoids: Mild bilateral maxillary mucoperiosteal thickening. Lung apices: Clear. Upper mediastinum: Visualized mediastinum is unremarkable. Bones: Unremarkable. Artifacts related to dental enhancements. Soft tissues: Left facial soft tissue swelling adjacent to the left bryan mandible. Left submental soft tissue swelling. CT/Soft Tissue Neck WITH Contrast IMPRESSION: 1. No definite periodontal abscesses are identified. 2. Left facial soft tissue swelling as detailed above. 3. Shot[place] lymph nodes are noted on both sides of the neck, more numerous on th e left. These findings most likely reactive to inflammation. Reading Location: [facility]
--- NOTE | 2024-05-15 11:48 | ED.VIS.DENTA ---
HPI History of Present Illness Chief Complaint: Dental Informant: patient Narrative Narrative: Left mandibular toothache that started a couple days ago, she did a virtual visit with someone yesterday and was started on penicillin she thinks, she has been taking it all day yesterday and this morning but since starting it yesterday, she is developed increased pain and swelling as well as some difficulty swallowing but no dyspnea. She had a fever last night up to 101. Patient states she has a history of methamphetamine/illicit drug abuse, and although she does not use it regularly anymore she used methamphetamine this morning because she was in so much pain. [facility] Medical History Substance abuse Hepatitis Wears glasses Depression Anxiety Marijuana use Smoker Kidney disease Home Medications ?Medication ?Instructions ?Recorded ?Last Taken ?Type fluoxetine 40 mg capsule 60 mg PO DAILY 06/29/18 Unknown History gabapentin 600 mg tablet 600 mg PO TID 06/29/18 Unknown History quetiapine 100 mg tablet 100 mg PO TID 06/29/18 Unknown History buprenorphine 8 mg-naloxone 2 mg 1 film buccal BID 07/30/22 Unknown History sublingual film (Suboxone) lamotrigine 150 mg tablet 150 mg PO DAILY 07/30/22 Unknown History (Lamictal) mirtazapine 30 mg tablet (Remeron) 30 mg PO QHS 07/30/22 Unknown History polyethylene glycol 3350 17 gram 17 g PO DAILY 07/30/22 Unknown History oral powder packet (Miralax) potassium chloride 20 mEq 20 meq PO BID #8 tabs 07/28/23 Unknown Rx tablet,extended release sulfamethoxazole 800 1 tab PO BID #20 tabs 07/28/23 Unknown Rx mg-trimethoprim 160 mg tablet (Bactrim DS) Allergy/AdvReac Type Severity Reaction Status Date / Time ketorolac tromethamine (From Allergy Hives Verified 05/15/24 10:42 Toradol) latex Allergy Rash Verified 05/15/24 10:42 morphine (From Duramorph Allergy Hives Verified 05/15/24 10:42 (PF)) Surgical History History of Hx of laparoscopy Social History Smoking Status: Current every day smoker tobacco type: cigarettes ROS ROS ED Constitutional Constitutional ED: Reports chills and fever(s) Eyes Eyes: Denies change in vision or double vision ENT ENT ED: Reports as per HPI, dental pain and facial pain; Denies hoarseness, sinus pain, throat swelling or tongue swelling Cardiovascular Cardiovascular: Denies chest pain or palpitations Respiratory/Chest Respiratory/Chest: Denies cough or dyspnea Integumentary Denies abscess or rash Neurologic Neurologic: Denies headache(s), paresthesias or weakness EXAM Physical Exam Const Vital Signs: 05/15/24 10:43 05/15/24 10:44 05/15/24 12:42 Temperature 97.9 F 97.9 F Temperature Source Temporal Temporal Pulse Rate 96 96 90 Respiratory Rate 18 18 18 Blood Pressure 125/77 H 125/77 H 124/78 H Blood Pressure Mean 93 93 93 Pulse Ox 99 99 99 Oxygen Delivery Method Room Air Room Air 05/15/24 14:00 Temperature Temperature Source Pulse Rate 94 Respiratory Rate 18 Blood Pressure 126/79 H Blood Pressure Mean 94 Pulse Ox 99 Oxygen Delivery Method Positive well nourished, well developed and obese General Appearance ED: well developed and NAD Nutritional Appearance: obese HEENT HEENT Narrative: Tongue is normal no elevation. Poor dentition, tender teeth left mandibular canines are decayed down to the gumline. There is no intraoral evidence of an abscess, discharge, or bleeding. Gingiva normal. The sublingual tissues are nondistended and normal-appearing. There is tenderness with palpation on the left of this area, she has no trismus. Externally, she has erythema and swelling in the left submandibular area into the submental region, all of which is extremely tender. No dysphonia. Face and Sinus: sinuses nontender Throat: posterior oropharynx normal Eyes PERRL and EOMs intact bilaterally Neck no lymphadenopathy and supple Resp normal respiratory effort Neuro oriented x3 and CN's II-XII intact bilaterally Sensorium / Orientation: alert Gait (Neuro): normal gait Psych mental status grossly normal and thought process normal Skin no rashes or lesions noted and no wounds MDM MDM MDM Narrative Medical decision making narrative: Patient was severe tenderness, I do not think that she would tolerate empiric attempted abscess aspiration. I gave her some pain medication and there was a significant delay in obtaining imaging to evaluate for the possibility of an abscess due to difficulty with IV access which eventually was able to be obtained, and she obtained the CT of the neck soft tissues with IV contrast, in addition to IV clindamycin empirically. I reviewed the imaging, and on my interpretation there is no drainable collection. Radiology was in agreement, and also in agreement that radiographically as well as clinically, there is submental involvement. Clinically she does not have Olu's angina. My concern would be that this would advance into Olu's angina. Therefore I think in addition to IV steroids, she should be observed overnight for worsening and possible airway involvement. We do not have otolaryngology on-call right now but I do not think she needs any surgical management since her airway is patent, and she does not have any drainable collections; I think all of this should be treated medically for now. Lab Data Attestation: I reviewed the patient's lab results. Labs: Laboratory Results - last 24 hr 05/15/24 11:54 WBC 10.4 RBC 3.28 L Hgb 9.9 L Hct 30.7 L MCV 93.6 MCH 30.2 MCHC 32.2 RDW Std Deviation 42.2 RDW Coeff of Mirella 12.3 Plt Count 275 MPV 9.9 Immature Gran % (Auto) 1.100 H Neut % (Auto) 67.1 Lymph % (Auto) 20.1 [place] % (Auto) 7.6 Eos % (Auto) 3.3 Baso % (Auto) 0.8 Absolute Neuts (auto) 7.0 Absolute Lymphs (auto) 2.10 Nucleated RBC % 0 Sodium 136 Potassium 3.6 Chloride 106 Carbon Dioxide 21.0 Anion Gap 8 BUN 21 H Creatinine 1.01 Estim Creat Clear Calc 85.40 Est GFR (MDRD) Af Amer 80 Est GFR (MDRD) Non-Af 66 BUN/Creatinine Ratio 20.8 H Glucose 101 Calcium 9.5 Radiography Diagnostic Testing: Clinical Impression(s) from Imaging Studies Soft Tissue Neck CT 05/15/24 11:25 IMPRESSION: 1. No definite periodontal abscesses are identified. 2. Left facial soft tissue swelling as detailed above. 3. Shotty lymph nodes are noted on both sides of the neck, more numerous on the left. These findings most likely reactive to inflammation. Reading Location: [facility] Management Discussion w/another healthcare provider: Hospitalist Discharge Plan Dx/Rx/DC Orders Clinical Impression: Infected dental caries, Cellulitis of submandibular region, Cellulitis of submental space Disposition Disposition: [facility]
[2024-05-15] MEDS: fentaNYL 100 MCG/2 ML Ampul 50 MCG IV ×2 (11:58→14:53)
[2024-05-15] MEDS: Clindamycin 600 MG/50 ML BAG 100 MG IV (11:58)
[2024-05-15 12:04] LABS: Basophil# 0.08 X10^3/uL; Basophil% 0.8 % (0-1); Eosinophil# 0.34 X10^3/uL; Eosinophils% 3.3 % (0-5); Hematocrit 30.7 % (37-47); Hemoglobin 9.9 g/dL (12.0-15.0); Lymphocyte % 20.1 % (19-41); Mean Corp Hgb Conc 32.2 g/dL (32-36); Mean Corpuscular Hgb 30.2 pg (27.0-32.0); Mean Corpuscular Volume 93.6 fL (81-99); Mean Platelet Vol. 9.9 fl (6.2-12.0); Monocyte# 0.79 X10^3/uL; Monocyte% 7.6 % (0-10); NRBC Flagged by Analyzer 0 % (0-5); Neutrophil # 7.01 X10^3/uL (2.7-7.7); Neutrophil % 67.1 % (47-70); Platelet Count 275 K/mm3 (150-450); RBC Distribution Width CV 12.3 % (11.6-14.6); RBC Distribution Width SD 42.2 fl (35.1-43.9); Red Blood Count 3.28 M/mm3 (4.2-5.4); White Blood Count 10.4 K/mm3 (4.4-11.0)
[2024-05-15 12:47] LABS: Anion Gap 8 (5-15); BUN 21 mg/dL (7-18); BUN/Creat Ratio 20.8 RATIO (10-20); Calcium,Total 9.5 mg/dL (8.5-10.1); Chloride 106 mmol/L (98-107); Creatinine, Serum 1.01 mg/dL (0.55-1.02); EST Glomerular Filtration Rate 66 mL/min (>60); Est Glom Filt Rate - Afr Amer 80 mL/min (>60); Glucose 101 mg/dL (74-106); Potassium 3.6 mmol/L (3.5-5.1); Sodium Level 136 mmol/L (136-145)
[2024-05-15] MEDS: dexAMETHasone 10 MG/ML Vial IV ×2 (15:53→22:42)
--- NOTE | 2024-05-15 17:28 | PCM.HP.STD ---
HPI - General General Date of Admission: 05/15/24 Date of Service: 05/15/24 Chief Complaint: Left face swelling HPI Narrative CAMILLA BORGES, is a 34y/o female w/ hx of substance use on suboxone, depression, tobacco use presented [facility] ED 05/15/2024 for some left mandibular swelling over the past couple days, did a virtual visit with someone yesterday and was started on possibly a penicillin and reports she took it today but is still having some increased pain and swelling prompting her to come to the ED, reports temp up to 101 last night but is afebrile and vitally stable in the ED without any increase in white blood cell count. Patient with no airway compromise. She did have CT soft tissue of the neck to evaluate for any discrete abscesses or need for any acute intervention. CT soft tissue of the neck with no definite periodontal abscess or other abscess and showed left facial soft tissue swelling adjacent to the left hemimandible and left submental soft tissue swelling. Patient given Decadron and clindamycin. Given concerns for compliance and also it being a weekend without the ability of close OMFS or outpatient physician follow-up to assure improvement hospitalist contacted for admission for 24 hours of IV antibiotics to verify patient improving prior to discharge which is reasonable. Patient with no impending airway compromise or need for emergent intubation or airway management or ENT or OMFS intervention. Patient evaluated bedside. Patient reports that this is developed over the past several days and that she has had tooth infections before but nothing quite like this, does report she had a fever at home yesterday but none reported today, denies any headache or changes in vision, no stuffy nose, patient maintaining her airway and secretions. Has a little bit of aching in her upper chest sometimes but no overt chest pain, no cough or shortness of breath [facility] Medical History Substance abuse Hepatitis Wears glasses Depression Anxiety Marijuana use Smoker Kidney disease Home Medications ?Medication ?Instructions ?Recorded ?Last Taken ?Type fluoxetine 40 mg capsule 60 mg PO DAILY 06/29/18 Unknown History gabapentin 600 mg tablet 600 mg PO TID 06/29/18 Unknown History quetiapine 100 mg tablet 100 mg PO TID 06/29/18 Unknown History buprenorphine 8 mg-naloxone 2 mg 1 film buccal BID 05/08/23 Unknown History sublingual film (Suboxone) lamotrigine 150 mg tablet 150 mg PO DAILY 07/30/22 Unknown History (Lamictal) mirtazapine 30 mg tablet (Remeron) 30 mg PO QHS 07/30/22 Unknown History polyethylene glycol 3350 17 gram 17 g PO DAILY 07/30/22 Unknown History oral powder packet (Miralax) potassium chloride 20 mEq 20 meq PO BID #8 tabs 07/28/23 Unknown Rx tablet,extended release sulfamethoxazole 800 1 tab PO BID #20 tabs 07/28/23 Unknown Rx mg-trimethoprim 160 mg tablet (Bactrim DS) Allergy/AdvReac Type Severity Reaction Status Date / Time ketorolac tromethamine (From Allergy Hives Verified 05/15/24 10:42 Toradol) latex Allergy Rash Verified 05/15/24 10:42 morphine (From Duramorph Allergy Hives Verified 05/15/24 10:42 (PF)) Surgical History History of Hx of laparoscopy Social History Smoking Status: Current every day smoker tobacco type: cigarettes ROS ROS Narrative General: Fever yesterday, none today HENT: Denies headache, denies stuffy nose, denies sore throat, did report it felt a little different to swallow earlier EYES: Denies changes in vision Resp: Denies cough, denies any overt shortness of breath and is maintaining her airway Cardiac: Denies overt chest pain, has some homeless achy feeling in her upper chest at times GI: Denies abdominal pain, denies changes in bowel, denies nausea/vomiting : Denies changes in urination Extremity: Denies extremity swelling MSK: Denies weakness Neuro: Denies any numbness/tingling Heme: Denies any bleeding or bruising Skin: Has the left submandibular swelling and erythema Psychiatric: No complaints voiced Vital Signs Vital Signs Vital Signs: 05/15/24 10:43 05/15/24 10:44 05/15/24 12:42 Temperature 97.9 F 97.9 F Temperature Source Temporal Temporal Pulse Rate 96 96 90 Respiratory Rate 18 18 18 Blood Pressure 125/77 H 125/77 H 124/78 H Blood Pressure Mean 93 93 93 Pulse Ox 99 99 99 Oxygen Delivery Method Room Air Room Air 05/15/24 14:00 05/15/24 16:00 05/15/24 17:27 Temperature 98.4 F 98.4 F Temperature Source Oral Pulse Rate 94 80 91 Respiratory Rate 18 18 16 Blood Pressure 126/79 H 130/89 H Blood Pressure Mean 94 102 Pulse Ox 99 98 98 Oxygen Delivery Method Weight Weight: 91.9 kg Body Mass Index (BMI) 34.7 Physical Exam Narrative General: Alert, oriented, no apparent distress HEENT: Atraumatic, poor dentition, patient able to open mouth wide and has no evidence of airway compromise, she is managing her secretions, does report a lot of pain when palpating over cellulitic area however is able to move head around without nearly as much pain Eyes: Anicteric, normal conjunctiva, extraocular movements grossly intact Neck: Supple Respiratory: Clear to auscultation bilaterally, normal respiratory effort Cardiovascular: Regular rate and rhythm GI: Soft, nontender, nondistended Extremities: No edema Musculoskeletal: Moving all extremities Neuro: No overt focal neurological deficits Skin: Some erythema over cellulitic area Psych: Cooperative Results Lab / Micro Data 05/15/24 11:54 05/15/24 11:54 Labs: Laboratory Results - last 24 hr 05/15/24 11:54: WBC 10.4, RBC 3.28 L, Hgb 9.9 L, Hct 30.7 L, MCV 93.6, MCH 30.2, MCHC 32.2, RDW Std Deviation 42.2, RDW Coeff of Mirella 12.3, Plt Count 275, MPV 9.9, Immature Gran % (Auto) 1.100 H, Neut % (Auto) 67.1, Lymph % (Auto) 20.1, [place] % (Auto) 7.6, Eos % (Auto) 3.3, Baso % (Auto) 0.8, Absolute Neuts (auto) 7.0, Absolute Lymphs (auto) 2.10, Nucleated RBC % 0, Sodium 136, Potassium 3.6, Chloride 106, Carbon Dioxide 21.0, Anion Gap 8, BUN 21 H, Creatinine 1.01, Estim Creat Clear Calc 85.40, Est GFR (MDRD) Af Amer 80, Est GFR (MDRD) Non-Af 66, BUN/Creatinine Ratio 20.8 H, Glucose 101, Calcium 9.5 Imaging Radiology Impression Soft Tissue Neck CT 05/15/24 11:25 IMPRESSION: 1. No definite periodontal abscesses are identified. 2. Left facial soft tissue swelling as detailed above. 3. Shotty lymph nodes are noted on both sides of the neck, more numerous on the left. These findings most likely reactive to inflammation. Reading Location: [facility] Assessment & Plan Assessment/Plan (1) Cellulitis of submandibular region: PLAN: Plan #Submandibular cellulitis -Seen on CT scan with no appreciable periodontal abscess or other abscess, showed some left facial soft tissue swelling adjacent to the left mandible with left submental soft tissue swelling, no indication for surgical intervention or fluid collection that would be amenable to any intervention or drainage -Patient without any airway compromise, managing her secretions, able to open her mouth, no apparent voice changes -Given concerns for compliance and also it being a weekend without the ability of close OMFS or outpatient physician follow-up to assure improvement, hospitalist contacted for admission for 24 hours of IV antibiotics to verify patient improving prior to discharge which is reasonable -Given her history of substance use we will broaden antibiotic coverage and continue Decadron -If patient improving can likely DC tomorrow on oral antibiotics and follow-up outpatient to assure patient continues to respond and decide ultimate duration of antibiotics -On exam patient was reporting a lot of tenderness on palpation of the area however when walking into the room and when just talking with patient she is resting comfortably lying supine and is able to have a conversation easily and move her head without demonstrating that degree of pain and only reports some discomfort occasionally -Also of note, discussed with ED physician who did reevaluate the patient after 6 hours and verified that patient's exam is still consistent with her exam on arrival and she has not had further worsening or any indication for any acute needs -Patient will be admitted for observation with Decadron and IV antibiotics, no acute surgical indication for intervention or need for transfer # History of substance use -Patient reports no longer taking Suboxone -Does report recent meth use and denies any IV drug use -Will check UDS #Depression/anxiety -Continue home medications #Tobacco use -Advise cessation -Nicotine patch #DVT ppx: Low risk, ambulatory Romelia Elder MD Time spent in the patient's overall evaluation, decision-making process, review of diagnostic data, adjustment of management, discussion with other providers, nursing and ancillary staff involved in patient's care documentation, 76 Minutes Charges/Coding Visit Charges Inpatient E&M: 12721 Init Hosp L3
[2024-05-15] MEDS: oxyCODONE 5 MG Tablet PO (20:01)
[2024-05-15] MEDS: levoFLOXacin IV 750 MG/150 ML BAG 100 MG IV (20:02)
[2024-05-15] MEDS: 0.9% Normal Saline (1000mL) 1,000 ML 50 ML IV (20:02)
[2024-05-15] MEDS: Acetaminophen 325 MG Tablet 650 MG PO (20:02)
[2024-05-15] MEDS: Vancomycin HCl 2,000 MG in 0.9% Normal Saline (500mL Bag) 500 ML 250 MG IV (20:02)
--- NOTE | 2024-05-15 20:20 | PCM.RX.CS ---
Consult Antibiotic Management Pharmacy has been consulted to manage selected antibiotic: Vancomycin Type of Intervention Type of Consult: New start Suspected Infection Suspected Infection: Skin/Soft tissue and Other (dental infection) Labs Labs: Sodium 136 mmol/L (136-145) 05/15/24 11:54 Potassium 3.6 mmol/L (3.5-5.1) 05/15/24 11:54 Chloride 106 mmol/L (98-107) 05/15/24 11:54 Carbon Dioxide 21.0 mmol/L (21.0-32.0) 05/15/24 11:54 Anion Gap 8 (5-15) 05/15/24 11:54 BUN 21 mg/dL (7-18) H 05/15/24 11:54 Creatinine 1.01 mg/dL (0.55-1.02) 05/15/24 11:54 Est GFR (MDRD) Af Amer 80 mL/min (>60) 05/15/24 11:54 Est GFR (MDRD) Non-Af 66 mL/min (>60) 05/15/24 11:54 BUN/Creatinine Ratio 20.8 RATIO (10-20) H 05/15/24 11:54 Glucose 101 mg/dL (74-106) 05/15/24 11:54 Pharmacy Plan for Drug Dosing Pharmacy Plan for Drug Dosing: NEW START IV VANCOMYCIN Consulting Physician: Jerrod Indication: cellulitis/dental infection Goal Trough: 15-20 mg/dL SrCr: 1.01 mg/dL CrCl: 85.4 mL/min Comments: loading dose of 2000mg given 05/15 @ 2001 Vancomycin Dose: Will start 1500mg Q12 05/16 @ 0800 and get a trough prior to 4th total dose per policy. Pending Level: 05/17/24 @ 0730 Pharmacy Service will continue to monitor and adjust dosing as required.
[2024-05-15] MEDS: QUEtiapine 100 MG Tablet PO (22:41)
[2024-05-15] MEDS: Gabapentin 600 MG Tablet PO (22:41)
[2024-05-15] MEDS: 0.9% Saline Lock 10 ML Syringe IV (22:46)
[2024-05-16 01:47] VITALS: BP 96/60; PULSE 83; RESP 16; TEMP 36.6; O2SAT 96
[2024-05-16 02:40] LABS: Amphetamine Urine POSITIVE (<1000 ng/mL); Barbiturate Urine NEGATIVE (< 200 ng/mL); Benzodiazepine Urine NEGATIVE (< 200 ng/mL); Cocaine Urine NEGATIVE (< 300 ng/mL); Ecstacy Urine NEGATIVE (< 500 ng/mL); Methadone Urine NEGATIVE (< 300 ng/mL); Opiates Urine POSITIVE (< 300 ng/mL); PCP Urine NEGATIVE (< 25 ng/mL); THC Urine NEGATIVE (< 50 ng/mL); Vista UDS pH Range 6
[2024-05-16 05:33] VITALS: BP 118/68; PULSE 88; RESP 18; TEMP 37; O2SAT 98
[2024-05-16] MEDS: Acetaminophen 325 MG Tablet 650 MG PO (05:52)
[2024-05-16] MEDS: oxyCODONE 5 MG Tablet PO ×2 (05:53→12:25)
[2024-05-16] MEDS: dexAMETHasone 10 MG/ML Vial IV (05:53)
[2024-05-16] MEDS: Gabapentin 100 MG Capsule PO ×2 (09:12→12:25)
[2024-05-16] MEDS: Vancomycin HCl 1,500 MG in 0.9% Normal Saline (500mL Bag) 500 ML 250 MG IV (09:12)
[2024-05-16] MEDS: QUEtiapine 25 MG Tablet 50 MG PO (09:13)
[2024-05-16] MEDS: FLUoxetine 20 MG Capsule 60 MG PO (09:15)
[2024-05-16] MEDS: lamoTRIgine 150 MG Tablet PO (09:17)
--- NOTE | 2024-05-16 11:26 | CASEMGMT ---
Social Work SW noted in chart review that pt used meth prior to admission to cope with pain. SW met with pt and introduced self and role of SW. Pt immediately turning over in bed with back to SW. Pt stating she would not speak to a social work specialist. SW offered to come back later and pt declined stating she would not talk with a SW. SW left room. SW will remain available should pt change her mind. TERESA Roblero
--- NOTE | 2024-05-16 12:41 | DCINST_ITS ---
Discharge Instructions Diet Discharge Diet: No restrictions DC O2, CPAP, BIPAP needs Home O2 Discharge instructions: No Dressing / Incision Discharge Activity: No Restrictions Follow Up Care Test Results: Test results from this visit will be discussed in further detail at your follow- up appointment, if applicable. Discharge Plan Admission Admit Date/Time: 05/15/24 17:29 Primary Reason for Your Visit: left face/neck swelling Attending Provider: Irineo Melendez Primary Care Provider: Care Physician,No Primary Consulting Providers: Romelia Elder Discharge Orders/Prescriptions Prescriptions: No Action fluoxetine 40 MG capsule 60 mg PO DAILY Patient Comments: take 1 capsule by mouth once daily gabapentin 100 mg capsule 100 mg PO 3XD lamotrigine 100 mg tablet 100 mg PO QHS gabapentin 300 mg capsule 600 mg PO QHS quetiapine 300 mg tablet 300 mg PO QHS melatonin 10 mg capsule 10 mg PO DAILY quetiapine 50 mg tablet 50 mg PO BID Patient Comments: [NO ORIGINAL SIG] Referrals / Follow Up: Care Physician,No Primary [Primary Care Provider] -
--- NOTE | 2024-05-16 12:41 | PCM.DC.SUM ---
Providers Date of Admission: 05/15/24 Date of Discharge: 05/16/24 Primary Care Physician: No Primary Care Phys Reason For Visit: Head/neck infection Diagnosis Discharge Diagnosis (1) Cellulitis of submandibular region: Status: Acute Code(s): K12.2 - Cellulitis and abscess of mouth Medications at Discharge Home Medications fluoxetine 40 mg capsule 60 mg PO DAILY mood 06/29/18 gabapentin 100 mg capsule 100 mg PO 3XD pain 05/15/24 gabapentin 300 mg capsule 600 mg PO QHS pain 05/15/24 lamotrigine 100 mg tablet 100 mg PO QHS mood 05/15/24 melatonin 10 mg capsule 10 mg PO DAILY 05/15/24 quetiapine 300 mg tablet 300 mg PO QHS 05/15/24 quetiapine 50 mg tablet 50 mg PO BID mood 05/15/24 amoxicillin 875 mg-potassium clavulanate 125 mg tablet 1 tab PO BID 9 days #18 tabs 05/16/24 oxycodone 5 mg tablet 5 mg PO Q6H PRN pain 2 days #8 tabs 05/16/24 prednisone 20 mg tablet 40 mg (2 x 20 mg) PO DAILY 5 days #10 tabs 05/16/24 Hospital Course Operations None Procedures - (CT soft tissue neck) Summary of Care Provided Minutes Spent on Discharge: 35 Hospital Course: Patient is a 34-year-old female who presented [facility] ED on 05/15/2024 with worsening face/neck swelling with erythema and pain. Short hospital course as noted below. Patient discharged home in stable condition on 05/16. 1. Submandibular cellulitis ? Presented with worsening left mandibular swelling, pain and fevers with chills. CT soft tissue neck showed left facial soft tissue swelling adjacent to the left hemimandible and left submental soft tissue swelling, no definite peridental abscess, no abscess amenable for draining. Treated with IV Decadron, IV vancomycin and IV Levaquin while inpatient with good improvement in swelling and pain. Discharged on Augmentin for 9 more days to complete 10-day course of antibiotics total, prednisone 40 mg daily for another 5 days and very short course of oxycodone as needed for pain. 2. History of substance use ? Patient was on Suboxone in the past, no longer taking this. Did report recent meth use prior to admission but denied any IV drug use. Urine drug screen was positive for amphetamines and opiates. Denied need for addiction medicine resources on discharge. Encouraged cessation from methamphetamines on discharge. 3. Depression/anxiety ? Continue home medications. 4. Tobacco use ? Nicotine patch placed during hospitalization. Discussed cessation on discharge. 5. Chronic normocytic anemia ? Hemoglobin 9.9 on admit, prior baseline appears to be around 10-11. Stable. Total clinical time spent by myself addressing the patient's medical issues, reviewing all the data, and collaborating with patient's care team: 35 minutes. Physical Exam Const alert, oriented x3 and no apparent distress Constitutional Narrative: Female, class I obesity, somewhat disheveled and anxious appearing, otherwise laying back comfortably in bed and in no acute distress. General Appearance: cooperative and comfortable HEENT normocephalic, head/scalp atraumatic, hearing grossly normal bilaterally, nasal mucous membranes and turbinates normal and moist oral mucous membranes HEENT Narrative: Swelling noted in left mandibular area with erythema and moderate tenderness to palpation but improving from admission. Poor dentition also noted. Eyes PERRL, EOMs intact bilaterally and conjunctivae normal Neck full ROM Chest inspection of chest normal Resp normal respiratory effort, normal air movement, no use of accessory muscles and clear to auscultation bilaterally Cardio regular rate, regular rhythm, no murmurs and peripheral pulses 2+ throughout GI normal to inspection, nondistended, normoactive bowel sounds, soft to palpation, non-tender and non-distended Back/Spine normal ROM Extremity normal to inspection, full ROM and no pedal edema Skin no rashes or lesions noted Psych mental status grossly normal Mood & Affect: anxious Weight / BMI Weight Weight: 91.989 kg Body Mass Index (BMI) 34.8 ABG / Lab / Microbiology Data 05/15/24 11:54 05/15/24 11:54 Laboratory: Laboratory Results - last 24 hr 05/16/24 01:43: Urine Opiates Screen POSITIVE H, Urine Methadone Screen NEGATIVE, Ur Barbiturates Screen NEGATIVE, Ur Phencyclidine Scrn NEGATIVE, Ur Amphetamines Screen POSITIVE H, MDMA (Ecstasy) Screen NEGATIVE, U Benzodiazepines Scrn NEGATIVE, Urine Cocaine Screen NEGATIVE, U Cannabinoids Screen NEGATIVE, Ur Drug Screen Comment Radiography Diagnostic Testing: Radiology Impression Soft Tissue Neck CT 05/15/24 11:25 IMPRESSION: 1. No definite periodontal abscesses are identified. 2. Left facial soft tissue swelling as detailed above. 3. Shotty lymph nodes are noted on both sides of the neck, more numerous on the left. These findings most likely reactive to inflammation. Reading Location: [facility] Instructions DC O2, CPAP, BIPAP Needs Home O2 Discharge instructions: No Meaningful Use Info Meaningful Use Meaningful Use Diagnoses (Choose all that apply): None applicable Ischemic Stroke Statin Dosing Therapy Reference: STATIN DOSE THERAPY REFERENCE: * Patients > 75 years receive moderate or high dose statin therapy. * Patients 75 years or YOUNGER should receive HIGH intensity statin dose unless contraindicated. You will be required to document reason for non-treatment if statin daily dose does not meet guidelines. HIGH DOSE STATIN THERAPY DAILY Atorvastatin > than or = to 40 mg Rosuvastatin > than or = to 20 mg Amlodipine + Atorvastatin > than or = to 2.5/40 mg Ezetimibe + Simvastatin 10/80 mg Simvastatin 80mg Discharge Plan Admission Admit Date/Time: 05/15/24 17:29 Primary Reason for Your Visit: left face/neck swelling Attending Provider: Irineo Melendez Primary Care Provider: Care Physician,No Primary Consulting Providers: Romelia Elder Instructions Additional Instructions / Restrictions: Take 9 more days of Augmentin to complete 10-day course of antibiotics total. Take prednisone for 5 more days to complete course of steroids. Use oxycodone only as needed for pain. Follow-up with your primary care doctor as needed. Discharge Orders/Prescriptions Prescriptions: New amoxicillin-pot clavulanate 875-125 mg tablet 1 tab PO BID 9 Days Qty: 18 0RF prednisone 20 mg tablet 40 mg PO DAILY 5 Days Qty: 10 0RF oxycodone 5 mg tablet 5 mg PO Q6H PRN (Reason: pain) 2 Days Qty: 8 0RF Continued fluoxetine 40 MG capsule 60 mg PO DAILY Patient Comments: take 1 capsule by mouth once daily gabapentin 100 mg capsule 100 mg PO 3XD lamotrigine 100 mg tablet 100 mg PO QHS gabapentin 300 mg capsule 600 mg PO QHS quetiapine 300 mg tablet 300 mg PO QHS melatonin 10 mg capsule 10 mg PO DAILY quetiapine 50 mg tablet 50 mg PO BID Patient Comments: [NO ORIGINAL SIG] Referrals / Follow Up: Care Physician,No Primary [Primary Care Provider] - Disposition Disposition (needs filled in before D/C Order can be placed): Home, Self Care Charges/Coding Visit Charges Inpatient E&M: 50513 Disch Hosp >30min
--- NOTE | 2024-05-16 14:26 | NURSING ---
Pt was restless and eager to get out of here at noon. This RN told pt that orders were not in yet b/c the hospitalist wanted to see how she did with lunch. Pt had lunch at her bedside table and it was 50% gone. Pt stated she ate What I could because the rest is gross. Pt informed by this RN that I would notify Dr. Melendez in which he was able to put discharge orders in. Pt agitated, restless and wanted to leave as soon as she could.
== END 2024-05-16 13:36 | disposition home or self-care (01) ==
LOC: ED 15:45 → MS3 19:21
PROVIDERS: Admitting Provider Internal Medicine; Emergency Provider Emergency Medicine; Referring Provider Internal Medicine; Visit Provider Hospitalist
DX: K12.2 Cellulitis and abscess of mouth (principal); D64.9 Anemia, unspecified; K04.7 Periapical abscess without sinus; K02.9 Dental caries, unspecified; F41.9 Anxiety disorder, unspecified; F32.A Depression, unspecified; Z79.899 Other long term (current) drug therapy; F17.210 Nicotine dependence, cigarettes, uncomplicated; Z86.19 Personal history of other infectious and parasitic diseases; E66.811 Obesity, class 1; Z68.34 Body mass index [BMI] 34.0-34.9, adult
CPT/HCPCS: 70491; 80048; 80307; 85025; 96365; 96366; 96368; 96375; 96376; 99221; 99284; Q9967; A4216; G0378